=== PATIENT | male | born 1960 | race Caucasian/White ===

== ENCOUNTER → 2019-08-14 14:51 | Outpatient (BNVA) | payer MEDICARE, SELFPAY | PROVIDERS: Family Provider Internal Medicine; PCP Internal Medicine; Visit Provider Family Medicine | DX: R06.02 Shortness of breath (principal) | CPT/HCPCS: 71046 ==

== ENCOUNTER → 2019-08-26 14:15 | Outpatient (BNVA) | payer MEDICARE, SELFPAY | PROVIDERS: Family Provider Internal Medicine; PCP Internal Medicine; Visit Provider Nurse Practitioner Family | DX: R05 Cough (principal); J44.1 Chronic obstructive pulmonary disease with (acute) exacerbation; R09.89 Other specified symptoms and signs involving the circulatory and respiratory systems | CPT/HCPCS: 71046 ==

== ENCOUNTER 2019-11-04 13:42 | Outpatient (CLI) | payer MEDICARE, SELFPAY ==
--- NOTE | 2019-11-04 13:47 | XR_ITS ---
WS: [id number] XR lumbar spine f/e only [id number] REASON FOR EXAM: LOW BACK PAIN, COMMENT ON PRESENCE OR ABSENCE OF SPINAL INST FINDINGS: Spurring anteriorly is seen at the elbow for junction. A mild scoliotic curve convex to the right. There is no evidence of spinal instrumentation. There is degenerate changes of the disc space L5-S1. Normal flexion-extension views. XR/XR lumbar spine f/e only 13095 IMPRESSION: Mild scoliotic curve convex to the right. Degenerate changes of the disc space L5-S1. No evidence of spinal instrumentation.
== END 2019-11-04 13:43 | disposition home or self-care (01) ==
LOC: WPI 13:44
PROVIDERS: PCP Family Medicine; Visit Provider Nurse Practitioner
DX: M54.5 Low back pain (principal); M43.8X6 Other specified deforming dorsopathies, lumbar region
CPT/HCPCS: 72120

== ENCOUNTER → 2020-08-27 15:16 | Outpatient (BNVA) | payer MEDICARE, SELFPAY | PROVIDERS: PCP Family Medicine; Referring Provider Anesthesiology Pain Medicine; Visit Provider Orthopaedic Surgery | DX: M54.2 Cervicalgia (principal) | CPT/HCPCS: 72050 ==

== ENCOUNTER 2020-12-22 13:12 | Outpatient (CLI) | payer OTHER, SELFPAY ==
--- NOTE | 2020-12-22 13:30 | CT_ITS ---
WS: [id number] CT scan of the abdominal aorta and lower extremity arteries. Additional two-dimensional coronal and s agittal reconstruction was performed. MIP images were also performed. 12/22/2020 Clinical Data: I99.9 - Unspecified disorder of circulatory system Comparison: None. DLP: 995.[address] scans at [facility] use at least one of these dose optimization techniques: automat ed exposure control; mA and/or kV adjustment per patient size (includes targeted exams where dose is matched to clinical indication); or iterative reconstruction. Findings: Vascular: The abdominal aorta is normal in size. It bifurcates normally into the common iliac arteries. Then th e internal iliac and external iliac arteries are formed. The external iliac arteries form the common femoral arteries. Common femoral arteries bifurcate into the deep femoral and superficial femoral art eries. The superficial femoral arteries become the popliteal arteries and the arteries of the trifurc ations which are seen down to the level of the feet. There is no stenosis or occlusion. No significan t calcifications are seen. Abdominal and pelvic findings: The present kidneys are normal. The small bowel and colon show no abnormalities. The bladder is unrem arkable. The prostate is enlarged. No inguinal hernia is seen. The bones of the lower lumbar spine, p aidan, hips, femurs, tibia and fibula are normal. The soft tissues and extremities are unremarkable. CT/[place] [id number] Impression: 1. Normal abdominal aorta with normal flow distally through the iliac arteries, femoral arteries and the arteries of the thigh and legs. 2. No acute lower abdominal or intrapelvic abnormalities are seen.
[2020-12-22] MEDS: iohexol 350 mg/mL 100 mL Btl IV (13:59)
== END 2020-12-22 13:13 | disposition home or self-care (01) ==
PROVIDERS: PCP Internal Medicine; Visit Provider Orthopaedic Surgery
DX: I99.9 Unspecified disorder of circulatory system (principal)
CPT/HCPCS: 73706; Q9967

== ENCOUNTER → 2021-01-11 08:33 | Outpatient (BNVA) | payer MEDICARE, SELFPAY | PROVIDERS: PCP Internal Medicine; Referring Provider Orthopaedic Surgery; Visit Provider Anesthesiology Pain Medicine | DX: M47.22 Other spondylosis with radiculopathy, cervical region (principal); M47.812 Spondylosis without myelopathy or radiculopathy, cervical region; M51.36 Other intervertebral disc degeneration, lumbar region; M25.551 Pain in right hip; M25.552 Pain in left hip; J44.9 Chronic obstructive pulmonary disease, unspecified; F17.210 Nicotine dependence, cigarettes, uncomplicated; Z79.891 Long term (current) use of opiate analgesic | CPT/HCPCS: 99205 ==

== ENCOUNTER → 2021-01-19 13:02 | Outpatient (BNVA) | payer MEDICARE, SELFPAY | PROVIDERS: PCP Internal Medicine; Visit Provider Anesthesiology Pain Medicine | DX: M54.12 Radiculopathy, cervical region (principal); Z79.891 Long term (current) use of opiate analgesic | CPT/HCPCS: 62321; J1100 ==

== ENCOUNTER → 2021-02-03 09:44 | Outpatient (BNVA) | payer MEDICARE, SELFPAY | PROVIDERS: PCP Internal Medicine; Visit Provider Anesthesiology Pain Medicine | DX: M47.22 Other spondylosis with radiculopathy, cervical region (principal); M47.812 Spondylosis without myelopathy or radiculopathy, cervical region; M51.36 Other intervertebral disc degeneration, lumbar region; M25.551 Pain in right hip; M25.552 Pain in left hip; F17.210 Nicotine dependence, cigarettes, uncomplicated; Z79.891 Long term (current) use of opiate analgesic | CPT/HCPCS: 99214 ==

== ENCOUNTER → 2021-02-04 15:39 | Outpatient (BNVA) | payer MEDICARE, SELFPAY | PROVIDERS: PCP Internal Medicine; Visit Provider Orthopaedic Surgery | DX: R52 Pain, unspecified (principal) | CPT/HCPCS: 72170 ==

== ENCOUNTER → 2021-02-09 14:56 | Outpatient (BNVA) | payer MEDICARE, SELFPAY | PROVIDERS: PCP Internal Medicine; Visit Provider Anesthesiology Pain Medicine | DX: M47.812 Spondylosis without myelopathy or radiculopathy, cervical region (principal); F17.210 Nicotine dependence, cigarettes, uncomplicated; Z79.891 Long term (current) use of opiate analgesic | CPT/HCPCS: 64490; 64491; 64492; J3490 ==

== ENCOUNTER 2021-04-09 11:28 | Outpatient (CLI) | payer MEDICARE, SELFPAY ==
--- NOTE | 2021-04-09 11:45 | MR_ITS ---
WS: [id number] MRI LUMBAR SPINE NONCONTRAST HISTORY: M54.50 - Low back pain, unspecified COMPARISON: 10/06/2016 TECHNIQUE: Sagittal and axial multisequence imaging is submitted. Mild RIGHT curvature lumbar spine. There is also mild straightening of the normal lordosis. Small madelyn unt of reactive marrow edema along the L4 and L5 endplates. Slightly greater increased T2 signal exte nding into the RIGHT posterior lateral vertebral body and pedicle. Mild disc desiccation at L3-4, L4-5 and L5-S1. Conus terminates normally at L1. L1-L2: Normal. L2-L3: Normal. L3-L4: Mild annular disc bulging with a central disc protrusion and mild osteophytic ridging. Mild li gamentum flavum and facet arthritis. Mild encroachment upon the ventral thecal sac. Mild central sten osis with mild disc contact and encroachment upon the traversing L4 nerve roots bilaterally, LEFT gre ater than RIGHT. L4-L5: Diffuse asymmetric disc bulging with RIGHT foraminal protrusion. Disc bulges greater into the RIGHT subarticular recess and foramen. Mild osteophytic ridging. Nerve roots are becoming slightly cl umped within the thecal sac. Mild osteophytic ridging around the vertebral bodies. Mild ligamentum fl avum and facet arthritis. Moderate central and bilateral subarticular recess stenosis and mild RIGHT foraminal stenosis. There is disc contacting the traversing L5 nerve roots bilaterally. L5-S1: Very shallow central disc protrusion. Small vertebral body osteophytes with no significant jose nosis. Paravertebral soft tissues are normal. MR/MR lumbar spine wo con* [id number] IMPRESSION: 1. Asymmetric disc bulging at L4-5 with the RIGHT subarticular recess and fora ollie protrusion. Moderate central with bilateral subarticular recess and mild RIGHT foraminal stenosis at L4-5. There is disc contacting the traversing L5 ne rve roots bilaterally in the subarticular recesses. 2. Mild central stenosis at L3-4 with disc contacting the traversing L4 nerve roots, LEFT greater than RIGHT. 3. The degenerative changes and disc protrusion and stenosis at L3-4 and L4-5 have progressed since 09/26/2016.
== END 2021-04-09 11:29 | disposition home or self-care (01) ==
LOC: RADSHAW 11:34
PROVIDERS: PCP Internal Medicine; Visit Provider Physician Assistant
DX: M79.605 Pain in left leg (principal); M51.37 Other intervertebral disc degeneration, lumbosacral region; M51.26 Other intervertebral disc displacement, lumbar region; M48.061 Spinal stenosis, lumbar region without neurogenic claudication
CPT/HCPCS: 72148

== ENCOUNTER → 2021-06-17 00:01 | Outpatient (BNVA) | payer MEDICARE, SELFPAY | PROVIDERS: PCP Internal Medicine; Visit Provider Orthopaedic Surgery | DX: Z20.822 Contact with and (suspected) exposure to COVID-19 (principal) | CPT/HCPCS: 87635 ==

== ENCOUNTER 2021-06-23 05:52 | Day surgery (SDC) | payer MEDICARE, SELFPAY ==
[2021-06-17 14:11] VITALS: BMI 19.2
--- NOTE | 2021-06-17 14:33 | ANES.PREANE2 ---
Pre-Anesthetic Assessment Height/Weight: Height 1.75 m Weight 58.967 kg Operation Date: 06/23/21 07:00 Proposed Procedures p Lumbar Spine Decompression L3/4, 4/5--73455/87057/m54.50/m79.605(Not Applicable) - Jim Chavis DO Familial anesthetic complications: None Was Beta Emile taken within 24 hours: N/A Was Clonidine taken within 24 hours: N/A Social Tobacco and No alcohol Exam alert, oriented x 3 and regular rate & rhythm rhonchi Airway Submandibular: within normal limits Cervical ROM: within normal limits Mallampati: Class II Dentition: false Pulmonary Chronic Obstructive Pulmonary Disease CV/HEM Hypertension GI Gastroesophageal Reflux Disease Musc/skel Lower Back Pain Chronic pain/opioid Neuropsych Anxiety and Depression Anesthetic Plan ASA status: 3 Anesthesia: General Risk of > 500 ml blood loss (7ml/kg in children): No Medications/Allergies Home Medications Medication Instructions Recorded Confirmed Last Taken Type cyclobenzaprine 10 mg tablet 10 mg PO TID 08/14/19 06/17/21 Unknown History gsukmtazpb-wrnretivtflow-icabtduk 1 tab PO Q4H PRN 08/27/20 06/17/21 Unknown History 50 mg-325 mg-40 mg tablet diazepam 5 mg tablet 5 mg PO BID PRN 08/27/20 06/17/21 Unknown History albuterol sulfate 90 mcg/actuation 1 inh INHALATION QID 01/11/21 06/17/21 Unknown History aerosol inhaler (Ventolin HFA) ondansetron HCl 4 mg tablet 4 mg PO Q8H 01/11/21 06/17/21 Unknown History (Zofran) lisinopril 10 mg tablet 10 mg PO DAILY 02/04/21 06/17/21 Unknown History hydrocodone 10 mg-acetaminophen 1 tab PO Q8H PRN 04/27/21 06/17/21 Unknown History 325 mg tablet promethazine 25 mg tablet 25 mg PO TID PRN 06/17/21 06/17/21 Unknown History Allergies Allergy/AdvReac Type Severity Reaction Status Date / Time celecoxib [From Celebrex] Allergy Unknown Verified 05/25/21 08:55 latex Allergy rash Verified 05/25/21 08:55 pregabalin [From Lyrica] Allergy ALGY-Rash Verified 06/17/21 14:08 rofecoxib [From Vioxx] Allergy Unknown Verified 05/25/21 08:55 sertraline [From Zoloft] Allergy Unknown Verified 05/25/21 08:55 valdecoxib [From Bextra] Allergy Unknown Verified 05/25/21 08:55 NSAIDS (Non-Steroidal AdvReac RASH Verified 05/25/21 08:55 Anti-Inflamma PFSH Anesthesia Medical History Cervical spondylosis Chronic pain syndrome DDD (degenerative disc disease) Depression Dyslipidemia GERD (gastroesophageal reflux disease) Insomnia Polyarthralgia Family History Other CAD (coronary artery disease) Cancer Stroke Social History Alcohol intake: never Lives independently: Yes Household members: spouse Marital status: service: No Current occupational status: disabled History of recent travel: No Current gender identity: Male Data Anesthesia Cardiac Studies: No Data to Display
[2021-06-23] VITALS (11 sets, daily range): BP systolic 100–150; BP diastolic 59–95; PULSE 64–84; RESP 12–18; TEMP 36.1–36.2; O2SAT 93–99
--- NOTE | 2021-06-23 | XR_ITS ---
WS: [id number] XR lumbar spine 1V [id number] REASON FOR EXAM: lumbar decompression, low back pain, left leg pain FINDINGS: Surgical device initially overlying the left L4-L5 interspace with a second image demonstrating the d evice overlying the left L3-L4 disc space. XR/XR lumbar spine 1V [id number] IMPRESSION: Lumbar spine localization during surgery.
--- NOTE | 2021-06-23 | SCC_ITS ---
Procedure done: 1. bilateral L3/4 laminectomy with patial facetectomies 2. bilateral L4/5 laminectomies with partial facetetomies 12.9 seconds of fluoroscopic guidance, for a cumulative dose of 1.85 mGy, was provided to Dr. Chavis by the radiology department. C-arm images of the lumbar spine were saved for the patient's permanent record. [facility]
[2021-06-23] MEDS: sodium chloride 0.9% 1,000 ML 30 ML IV (06:37)
--- NOTE | 2021-06-23 06:57 | P.HP_ITS ---
Providers/Chief Complaint Primary Care Provider: Kameron Leyva MD Chief Complaint: low back pain, pain in left leg History of Present Illness Rudy De La Vega is a 60 year old male ?left lower extremity greater than right pain.? He has had injections that have given him some short-term relief.? He describes equal back to left leg pain.? Denies any new injuries.? Reports pain down his thighs and posterior thigh region of both legs with left greater than right.? Denies any loss of bowel or bladder control. An extensive review of the patient's past medical history, surgical history, allergies, medications, family history, social history, and review of systems was completed Review of Systems Narrative: General ROS: negative for weight changes, fever ENT ROS: negative for nasal congestion, drainage or bleeding, sore throat, dysphagia or ear pain Eyes: PERRL Hematological and Lymphatic ROS: negative for swollen glands or abnormal bleeding Endocrine ROS: negative for polyuria/polydpsia or new changes in weight Respiratory ROS: negative for cough, shortness of breath, or wheezing Cardiovascular ROS: negative for chest pain or dyspnea on exertion Gastrointestinal ROS: negative for reflux, abdominal pain, change in bowel habits, or black or bloody stools Musculoskeletal ROS: negative for back pain, neck pain, or joint pain or swelling except for current problem Neurological ROS: negative for TIA or stoke symptoms Skin: no rashes Medications/Allergies Home Medications Medication Instructions Recorded Confirmed Last Taken Type cyclobenzaprine 10 mg tablet 10 mg PO TID 08/14/19 06/17/21 06/22/21 History eihxauudzi-edtragjgytkct-ckcschwm 1 tab PO Q4H PRN 08/27/20 06/23/21 06/21/21 History 50 mg-325 mg-40 mg tablet diazepam 5 mg tablet 5 mg PO BID PRN 08/27/20 06/17/21 06/22/21 History albuterol sulfate 90 mcg/actuation 1 inh INHALATION QID 01/11/21 06/17/21 Unknown History aerosol inhaler (Ventolin HFA) ondansetron HCl 4 mg tablet 4 mg PO Q8H 01/11/21 06/17/21 Unknown History (Zofran) lisinopril 10 mg tablet 10 mg PO DAILY 02/04/21 06/17/21 06/22/21 History hydrocodone 10 mg-acetaminophen 1 tab PO Q8H PRN 04/27/21 06/23/21 06/23/21 02:30 History 325 mg tablet promethazine 25 mg tablet 25 mg PO TID PRN 06/17/21 06/17/21 Unknown History Allergies Allergy/AdvReac Type Severity Reaction Status Date / Time celecoxib [From Celebrex] Allergy Unknown Verified 05/25/21 08:55 latex Allergy rash Verified 05/25/21 08:55 pregabalin [From Lyrica] Allergy ALGY-Rash Verified 06/17/21 14:08 rofecoxib [From Vioxx] Allergy Unknown Verified 05/25/21 08:55 sertraline [From Zoloft] Allergy Unknown Verified 05/25/21 08:55 valdecoxib [From Bextra] Allergy Unknown Verified 05/25/21 08:55 NSAIDS (Non-Steroidal AdvReac RASH Verified 05/25/21 08:55 Anti-Inflamma PFSH Acute PFSH: Medical History (Updated 06/23/21 @ 06:59 by Jim Chavis DO) Cervical spondylosis Chronic pain syndrome DDD (degenerative disc disease) Depression Dyslipidemia GERD (gastroesophageal reflux disease) Insomnia Polyarthralgia Family History Other CAD (coronary artery disease) Cancer Stroke Social History Alcohol intake: never Lives independently: Yes Household members: spouse Marital status: service: No Current occupational status: disabled History of recent travel: No Current gender identity: Male Vitals/I&O/Wt Last Vital Signs Temp 97 F L 06/23/21 06:28 Pulse 74 06/23/21 06:28 Resp 18 06/23/21 06:28 BP 107/78 06/23/21 06:28 Pulse Ox 96 06/23/21 06:28 Physical Exam Narrative: EXAM NARRATIVE: CONSTITUTIONAL: The patient is a normal appearing [] in no apparent distress. GENERAL: Patient in no acute distress. CARDIAC: Regular rate and rhythm. CHEST: Normal inspiratory effort, normal respiratory rate. ABDOMEN: Soft and nontender. SKIN: Clear, warm and intact. NEURO?PSYCH: The patient is alert and oriented to person, place and time. Sensorv /SILT Motor StrengthShoulder abduction C5 5/5Wrist extension C6 5/5Elbow extension C7 5/5Hand Sap Developer C8 5/5Finger abduction T15/5 Radial/ Ulnar/ Median n intact LowerSensory (SILT)Motor StrengthHin flexion L2/3Ant/inner thigh 5/5Hip adduction L2/3 5/5Knee extension L4 Lat thigh, 5/5Toe dorsiflexion L5 5/5Ankle dorsiflexion L5/ E21Xukwqns flexion S1 5/5 DTRBleeps 2+Triceps 2+Brachioradialis 2+Patellar 2+Achilles 2+ MUSCULOSKELETAL: [] UPPEREXTREMITIES: The patient had full active ROM in fingers, wrist, elbow, and shoulder. The patient demonstrated ability to fully flex/extend/abduct/adduct fingers, make ok sign, cross 2nd/3rd digits, extend 1st digit fully.. Radial pulse 2+, CR<2 seconds. LOWER EXTREMITIES: Pt has full, active ROM of toes, ankle, knee, and hip. Dorsalis pedis/posterior tibialis pulses 2+, CR<2 seconds. SPINE: Skin warm, dry, intact. Data : 06/23/21 06:26 A&P Assessment and plan (1) Lumbar stenosis with neurogenic claudication: L3/4 and L4/5 MIS decompression Status: Acute Attestations Medical Necessity Statement*: failed conservative tx Coding Level of Care Code Acute Customer Service Leader for Chg Fwd Diagnoses Lumbar stenosis with neurogenic claudication M48.062
--- NOTE | 2021-06-23 07:00 | P.ANESUD_ITS ---
Pre-Anesthetic Update Pre-Anesthetic Assessment: Date of Surgery/Procedure: 06/23/21 Preop Erendira gnosis: Lumbar stenosis with neurogenic claudication Proposed Procedure: Operation Date: 06/23/21 07:00 Proposed Procedures p Lumbar Spine Decompression L3/4, 4/5--87137/31981/m54.50/m79.605(Not Applicable) - Jim Chavis, DO Any changes to Pre-Anesthetic Assessment?: No Last Intake: Intake Last Liquid Date 06/22/21 Last Liquid Time 22:30 Last Solid Date 06/22/21 Last Solid Time 16:00 Last Intake: 22:30 Vitals: Temperature 97 F L 06/23/21 06:28 Temperature Source Temporal Artery S can 06/23/21 06:28 Pulse Rate 74 06/23/21 06:28 Respiratory Rate 18 06/23/21 06:28 Blood Pressure 107/78 06/23/21 06:28 Blood Pressure Gypsy n 87 06/23/21 06:28 Pulse Oximetry 96 06/23/21 06:28 Oxygen Delivery Me thod 06/23/21 06:28 Exam: Pre-Anes Outpt Exam: alert, oriented x 3 and clear to auscultation bilaterally Cardiac Studies: No Data to Display
[2021-06-23 07:35] LABS: Anion Gap 14.7 (5-19); Blood Urea Nitrogen 14 mg/dL (6-20); Carbon Dioxide 24 mmol/L (22-29); Chloride 106 mmol/L (98-107); Glomerular Filtration Rate 98.9 mL/min (90-130); Glucose 91 mg/dL (65-115); Osmolality Calculated 292 mOsm/kg (285-295); Potassium 3.7 mmol/L (3.5-5.1); Sodium 141 mmol/L (136-145)
--- NOTE | 2021-06-23 08:25 | PM.OP ---
Operative Report Date of procedure: June 23, 2021 Pre-op diagnosis: Preop Diagnosis Lumbar stenosis with neurogenic claudication Post-op diagnosis: same Procedure done: 1. bilateral L3/4 laminectomy with patial facetectomies 2. bilateral L4/5 laminectomies with partial facetetomies Surgeon: Jim Chavis Spinner Cap Frame: Alden Cantu Estimated blood loss (mL): 5 Procedure: 1. bilateral L3/4 laminectomy with patial facetectomies 2. bilateral L4/5 laminectomies with partial facetetomies Patient is brought to the operative suite. After undergoing anesthesia they are placed in the prone position. All areas of impingement are well padded. Patient is then prepped and draped in the normal sterile fashion. A skin incision is made over the L3/4 level. This is confirmed under c-arm guidance. A series of dilators are passed and the tubular retractor is docked on the L3 lamina. A bovie is used to clear the soft tissue off the lamina and the L 3/4 facet joint. A high speed shweta is then used to perform the laminectomy and take down the medial aspect of the L 3/4 facet joint. A kerrison rongeure was then used to take down the remaining lamina and smooth the edged of the laminectomy up to the point where the ligamentum flavum attaches. Attention was then brought to the medial aspect of the facet joint. The remaining medial aspect of the superior and inferior aspect of the facet joint were taken down with the kerrison from the pedicle of L3 to L 4. The facet joint had significant hypertrophy. Attention was then brought to the Ligamentum Flavum. The ligament was taken down from the lamina of L3 to L4 and out medially to the remaining facet joint. The ligament was thick. The dura was then exposed. The dura was in good repair. The L3 nerve was then traced with a curette out the L3/4 foramen and found to be adequately decompressed. The L4 nerve was traced with a curette around the L4 pedicle. The lateral recess was opened with a kerrison helping to further decompress the L4 nerve. The tubular retractor was then tilted to the contralateral side. The bovie was used to take down the soft tissue on the spinous process. The high speed shweta was used to take down the spinous process and then the contralateral lamina of L3. The kerrison rongeur was used to take down the remaining lamina to the point where the ligamentum flavum attached and the ligamentum flavum was taken down from L3 to L4. The kerrison rongeur was then used to reach across and take down the medial aspect of the contralateral L3/4 facet joint.The currete was used to trace the contralateral L3 nerve out the L3/4 foramen to make sure it was decompressed adequatesly and the L4 was traced around the L4 pedicle. The lateral recess was opened further with the kerrison to ensure the L4 is adequately decompressed. Wound is then irrigated copiously with saline and surgiflo is used to stop any bleeding. The tubular retractor is removed and A skin incision is made over the L4/5 level. This is confirmed under c-arm guidance. A series of dilators are passed and the tubular retractor is docked on the L4 lamina. A bovie is used to clear the soft tissue off the lamina and the L 4/5 facet joint. A high speed shweta is then used to perform the laminectomy and take down the medial aspect of the L 3/4 facet joint. A kerrison rongeure was then used to take down the remaining lamina and smooth the edged of the laminectomy up to the point where the ligamentum flavum attaches. Attention was then brought to the medial aspect of the facet joint. The remaining medial aspect of the superior and inferior aspect of the facet joint were taken down with the kerrison from the pedicle of L4 to L5. The facet joint had significant hypertrophy. Attention was then brought to the Ligamentum Flavum. The ligament was taken down from the lamina of L4 to L5 and out medially to the remaining facet joint. The ligament was thick. The dura was then exposed. The dura was in good repair. The L4 nerve was then traced with a curette out the L4/5 foramen and found to be adequately decompressed. The L5 nerve was traced with a curette around the L5 pedicle. The lateral recess was opened with a kerrison helping to further decompress the L5 nerve. The tubular retractor was then tilted to the contralateral side. The bovie was used to take down the soft tissue on the spinous process. The high speed shweta was used to take down the spinous process and then the contralateral lamina of L4. The kerrison rongeur was used to take down the remaining lamina to the point where the ligamentum flavum attached and the ligamentum flavum was taken down from L4 to L5. The kerrison rongeur was then used to reach across and take down the medial aspect of the contralateral L4/5 facet joint.The currete was used to trace the contralateral L4 nerve out the L4/5 foramen to make sure it was decompressed adequatesly and the L5 was traced around the L5 pedicle. The lateral recess was opened further with the kerrison to ensure the L5 is adequately decompressed. Wound is then irrigated copiously with saline and surgiflo is used to stop any bleeding. The tubular retractor is removed and the wound is closed with vicryl and monocryl suture. Glue is then used to protect the wound. A sterile dressing is then placed. Patient was then placed in the supine position and transferred to the PACU in stable condition.
[2021-06-23] MEDS: HYDROcodone-acetaminophen 10-325 mg Tablet 1 TAB PO (09:40)
--- NOTE | 2021-06-23 12:57 | ANE.PACU2 ---
Inpatient post-anesthesia follow up: Airway intact: Yes Vital signs: Temperature 97 F Pulse Rate 78 Respiratory Rate 18 Blood Pressure 123/85 Pulse Oximetry 96 Oxygen Delivery Me thod Room Air Oxygen Flow Rate Fraction of Inspir ed Oxygen Hydration adequate: Yes Nausea and vomiting: No Pain level: 2 Mental status: Baseline
== END 2021-06-23 10:42 | disposition home or self-care (01) ==
PROVIDERS: Anesthesiology; PCP Internal Medicine; Visit Provider Orthopaedic Surgery
PROC: (CPT 63005; principal; 2021-06-23 07:00)
DX: M48.062 Spinal stenosis, lumbar region with neurogenic claudication (principal); G89.4 Chronic pain syndrome; Z79.891 Long term (current) use of opiate analgesic; E78.5 Hyperlipidemia, unspecified; K21.9 Gastro-esophageal reflux disease without esophagitis; F32.9 Major depressive disorder, single episode, unspecified; Z82.49 Family history of ischemic heart disease and other diseases of the circulatory system; Z82.3 Family history of stroke; J44.9 Chronic obstructive pulmonary disease, unspecified
CPT/HCPCS: 63047; 63048; 36415; 72020; 76000; 80048; J0690; J1100; J2250; J2405; J2704; J2710; J3010; J3490; J7030

== ENCOUNTER → 2021-07-20 10:15 | Outpatient (BNVA) | payer MEDICARE, SELFPAY | PROVIDERS: PCP Internal Medicine; Visit Provider Orthopaedic Surgery | DX: Z48.89 Encounter for other specified surgical aftercare (principal); M48.062 Spinal stenosis, lumbar region with neurogenic claudication | CPT/HCPCS: 72100 ==

== ENCOUNTER → 2021-09-14 10:48 | Outpatient (BNVA) | payer MEDICARE, SELFPAY | PROVIDERS: PCP Internal Medicine; Visit Provider Orthopaedic Surgery | DX: Z47.89 Encounter for other orthopedic aftercare (principal); Z98.890 Other specified postprocedural states | CPT/HCPCS: 99024 ==

== ENCOUNTER → 2021-10-14 14:46 | Outpatient (BNVA) | payer MEDICARE, SELFPAY | PROVIDERS: PCP Internal Medicine; Visit Provider Nurse Practitioner Family | DX: R07.9 Chest pain, unspecified (principal); R06.02 Shortness of breath; F17.210 Nicotine dependence, cigarettes, uncomplicated | CPT/HCPCS: 99214 ==

== ENCOUNTER → 2021-10-26 10:16 | Outpatient (BNVA) | payer MEDICARE, SELFPAY | PROVIDERS: PCP Internal Medicine; Visit Provider Orthopaedic Surgery | DX: M48.062 Spinal stenosis, lumbar region with neurogenic claudication (principal); Z47.89 Encounter for other orthopedic aftercare; Z98.890 Other specified postprocedural states | CPT/HCPCS: 99214 ==

== ENCOUNTER 2021-12-22 09:12 | Outpatient (CLI) | payer MEDICARE, SELFPAY ==
--- NOTE | 2021-12-22 09:30 | MR_ITS ---
WS: [id number] MRI LUMBAR SPINE NONCONTRAST HISTORY: Low back and RIGHT leg pain. No recent injury. COMPARISON: 04/09/2021 TECHNIQUE: Sagittal and axial multisequence imaging is submitted. Mild RIGHT curvature lumbar spine. Mild straightening of the posterior alignment. Disc spaces are mildly desiccated throughout. Most significant at L4-5 and L5-S1. Small amount of gregg ctive marrow edema at L4 and L5. No fractures. Conus terminates normally at L1. L1-L2: Mild disc bulging and facet arthritis. No fracture. L2-L3: Mild disc bulging with mild ligamentum flavum and facet arthritis. No high-grade stenosis. L3-L4: Mild bilateral facet joint arthritis and ligamentum flavum hypertrophy. Mild annular disc bulg ing and vertebral body osteophytosis. Disc encroaches upon the ventral thecal sac and contacts but do es not displace the traversing L4 nerve roots. Mild bilateral subarticular recess and foraminal narro wing. Mild central stenosis. L4-L5: Moderate annular disc bulging asymmetric to the RIGHT. Moderate size RIGHT foraminal disc prot rusion with contact on both the RIGHT L4 and L5 nerve roots. Additional contact on the LEFT L5 nerve root in the subarticular recess. Nerve roots are becoming clumped within the thecal sac. Mild central stenosis. Laminectomy defect on the LEFT. L5-S1: Mild annular disc bulge. Shallow central disc protrusion. Mild ligamentum flavum hypertrophy a nd facet arthritis. Very mild narrowing of the central canal and foramina. Paravertebral soft tissues are normal. MR/MR lumbar spine wo con* [id number] IMPRESSION: 1. Asymmetric disc bulging at L4-5 with a RIGHT foraminal disc protrusion whic h has increased in size and extent as compared to 04/09/2021. RIGHT foraminal d isc protrusion with greater contact on the RIGHT L4 and L5 nerve roots. 2. Mild central stenosis at L4-5 with additional asymmetric disc bulging conta cting the traversing L5 nerve roots, RIGHT greater than LEFT. 3. Mild central and foraminal narrowing at L5-S1. 4. Mild central, bilateral subarticular foraminal narrowing at L3-4.
== END 2021-12-22 09:13 | disposition home or self-care (01) ==
PROVIDERS: PCP Internal Medicine; Visit Provider Orthopaedic Surgery
DX: M48.062 Spinal stenosis, lumbar region with neurogenic claudication (principal); M79.604 Pain in right leg; M51.26 Other intervertebral disc displacement, lumbar region; M48.061 Spinal stenosis, lumbar region without neurogenic claudication
CPT/HCPCS: 72148

== ENCOUNTER 2021-12-31 09:12 | Outpatient (CLI) | payer MEDICARE, SELFPAY ==
[2021-12-31 09:33] VITALS: BMI 18.4
--- NOTE | 2021-12-31 09:36 | NMCV_ITS ---
NM isaac perf SPECT r/s* [id number] Rudy De La Vega Age: 61 Gender: M : 1960 Exam Date: 12/31/2021 10:31 Ordering Phys: Gabi Patel Technologist: MK Chiang Exam Location: [facility] Indications: CHEST PAIN STRESS TEST [facility] IMAGE PROTOCOL Rest/Stress 1 Lexiscan Day Radiopharmaceutical Dose (mCi) Administration Site Administered by Rest: Tc-99m 10.8 IV MK Douglas Sestamibi Stress:Tc-99m 32.5 IV MK Douglas Sestamibi Rest: 31-Dec-2021 60 Discovery 630 Stress: 31-Dec-2021 30 Discovery 630 0.4mg Lexiscan. Images obtained in supine and prone position. SPECT RESULTS Technical Quality: Excellent Raw Data Analysis: Normal Image Corrections: No attenuation or motion correction applied Summed Stress Score: 5 Summed Rest Score: 14 Summed Difference Score: 0 PERFUSION FINDINGS Medium sized perfusion abnormality of mid to apical inferior, mid to apical inferolateral, mid septal, apical septal and apical butler on rest images with improved tracer uptake on stress images. This is suggestive of attenuation artifact. FUNCTIONAL RESULTS (calculated via Gated SPECT) Stress Image LV EF (%): 68 Stress EDV (mL):91 TID: 0.82 Stress ESV (mL):29 FUNCTIONAL FINDINGS: The left ventricle is normal in size. Transient Ischemia Dilatation of 0.82. The left ventricular ejection fraction is normal with a value of 68%. There is normal left ventricular wall thickening. Normal end-diastolic end-systolic volumes. IMPRESSIONS 1. Medium sized paradoxical perfusion abnormality of mid to apical inferior, mid to apical inferolateral, mid septal, apical septal and apical butler. This is suggestive of attenuation artifact. 2. Overall left ventricular systolic function is normal without regional wall motion abnormalities, LVEF=68%. 3. EKG portion of the study will be reported separately. 4. No coronary ischemia based on the study. Kacey Ivey MD (Electronically Signed) Final Date: 03 January 2022 13:13 S
[2021-12-31] MEDS: regadenoson 0.4 Mg/5 ml Syringe IVP (11:05)
[2021-12-31 11:16] VITALS: BP 122/81; PULSE 91
== END 2021-12-31 09:13 | disposition home or self-care (01) ==
LOC: CDL 09:14
PROVIDERS: PCP Internal Medicine; Visit Provider Nurse Practitioner Family
DX: R07.9 Chest pain, unspecified (principal)
CPT/HCPCS: 78452; 93017; A9500; J2785

== ENCOUNTER → 2022-01-03 15:22 | Outpatient (BNVA) | payer MEDICARE, SELFPAY | PROVIDERS: PCP Internal Medicine; Visit Provider Internal Medicine | DX: I10 Essential (primary) hypertension (principal); J44.9 Chronic obstructive pulmonary disease, unspecified; R07.9 Chest pain, unspecified | CPT/HCPCS: 99214 ==

== ENCOUNTER → 2022-01-18 10:21 | Outpatient (BNVA) | payer MEDICARE, SELFPAY | PROVIDERS: PCP Internal Medicine; Visit Provider Orthopaedic Surgery | DX: M48.062 Spinal stenosis, lumbar region with neurogenic claudication (principal) | CPT/HCPCS: 99214 ==

== ENCOUNTER 2022-02-16 08:21 | Day surgery (SDC) | payer MEDICARE, SELFPAY ==
[2022-02-14 08:16] VITALS: BMI 19.2
[2022-02-14 09:09] LABS: Anion Gap 12.7 (5-19); Blood Urea Nitrogen 21 mg/dL (8-23); Calcium 8.9 mg/dL (8.5-10.5); Carbon Dioxide 28 mmol/L (22-29); Chloride 103 mmol/L (98-107); Creatinine Clr Calc Pharmacy 91.6761; Glomerular Filtration Rate 98.6 mL/min (90-130); Glucose 99 mg/dL (65-115); Osmolality Calculated 291 mOsm/kg (285-295); Potassium 4.7 mmol/L (3.5-5.1); Sodium 139 mmol/L (136-145)
--- NOTE | 2022-02-14 13:01 | ANES.PREANE2 ---
Pre-Anesthetic Assessment Height/Weight: Height 1.75 m Weight 58.967 kg Preop Diagnosis: Lumbar stenosis with neurogenic claudication Operation Date: 02/18/22 07:00 Proposed Procedures p Lumbar Spine Decompression L3/4 L4/5 M48.062 [id number]/[id number](Not Applicable) - Jim Chavis DO Familial anesthetic complications: none Was Beta Emile taken within 24 hours: N/A Was Clonidine taken within 24 hours: N/A Social No alcohol and No tobacco (h/o smoking (quit 1 month ago)) Exam alert, oriented x 3 and regular rate & rhythm Airway Submandibular: within normal limits Cervical ROM: within normal limits Mallampati: Class II Dentition: false Pulmonary Chronic Obstructive Pulmonary Disease CV/HEM Hypertension Chest pain, perfusion scan no ischemia Metabolic Hyperlipidemia Musc/skel Lower Back Pain and Osteoarthritis/DJD chronic opioid Anesthetic Plan ASA status: 3 Anesthesia: General Medications/Allergies Home Medications Medication Instructions Recorded Confirmed Last Taken Type mnafjawrno-mjzohhuxnromd-tzjeqlpp 1 tab PO Q4H PRN Headache 08/27/20 02/14/22 06/21/21 History 50 mg-325 mg-40 mg tablet ondansetron HCl 4 mg tablet 4 mg PO Q8H 01/11/21 02/14/22 Unknown History (Zofran) promethazine 25 mg tablet 25 mg PO TID PRN Nausea 06/17/21 02/14/22 Unknown History cyclobenzaprine 10 mg tablet 20 mg PO BEDTIME 01/03/22 02/14/22 Unknown History tamsulosin 0.4 mg capsule (Flomax) 0.4 mg PO BEDTIME 01/03/22 02/14/22 Unknown History hydrocodone 10 mg-acetaminophen 1 tab PO Q6H PRN pain 02/14/22 02/14/22 Unknown History 325 mg tablet lisinopril 10 mg tablet 10 mg PO BEDTIME 02/14/22 02/14/22 Unknown History Allergies Allergy/AdvReac Type Severity Reaction Status Date / Time celecoxib [From Celebrex] Allergy Unknown Verified 02/14/22 08:11 latex Allergy rash Verified 02/14/22 08:11 pregabalin [From Lyrica] Allergy ALGY-Rash Verified 02/14/22 08:11 rofecoxib [From Vioxx] Allergy Unknown Verified 02/14/22 08:11 sertraline [From Zoloft] Allergy Unknown Verified 02/14/22 08:11 valdecoxib [From Bextra] Allergy Unknown Verified 02/14/22 08:11 NSAIDS (Non-Steroidal AdvReac RASH Verified 02/14/22 08:11 Anti-Inflamma PFSH Anesthesia Medical History Cervical spondylosis Chronic pain syndrome DDD (degenerative disc disease) Depression Dyslipidemia GERD (gastroesophageal reflux disease) Insomnia Polyarthralgia Family History Other CAD (coronary artery disease) Cancer Stroke Social History Smoking and tobacco status: former smoker Alcohol intake: never Lives independently: Yes Household members: spouse Marital status: service: No Current occupational status: disabled History of recent travel: No Current gender identity: Male Data Anesthesia : 02/14/22 08:30 BMP 02/14/22 08:30 Sodium 139 Potassium 4.7 Chloride 103 Carbon Dioxide 28 BUN 21 Creatinine 0.8 Glucose 99 Calcium 8.9 Cardiac Studies: No Data to Display
[2022-02-16] VITALS (7 sets, daily range): BP systolic 94–124; BP diastolic 63–79; PULSE 75–102; RESP 12–18; TEMP 36.4–36.6; O2SAT 97–99
--- NOTE | 2022-02-16 | XR_ITS ---
WS: [id number] Exam: XR lumbar spine 1V [id number] Date/Time of Exam: 02/16/2022 12:00 AM Reason For Exam: decompression L3/4 and L4/5 A single anterior posterior C-arm image of the lower lumbar spine is submitted for evaluation. A localization port is positioned over the L3-4 disc space. No other significant finding on this limi fabian study.
--- NOTE | 2022-02-16 | SCC_ITS ---
Procedure done: 1. L3/4 laminectomy with partial facetectomy 2. L4/5 laminectomy with partial facetectomy 24.5 seconds of fluoroscopic guidance, for a cumulative dose of 4.84 mGy, was provided to Dr. Chaivs by the radiology department. C-arm images of the lumbar spine were saved for the patient's permanent record. [facility]
--- NOTE | 2022-02-16 07:12 | W.PM.OPSUD ---
Surgery/Procedure H&P Update DATE OF PROCEDURE: February 16, 2022 DATE H&P PERFORMED: 01/18/22 H&P UPDATE INFORMATION: I have reviewed H&P completed within last 30 days, I have examined patient prior to procedure and No changes to prior documentation PREOP DIAGNOSIS: Lumbar stenosis with neurogenic claudication PLANNED PROCEDURE: Operation Date: 02/16/22 10:00 Proposed Procedures p Lumbar Spine Decompression L3/4 L4/5 M48.062 [id number](Not Applicable) - Jim Chavis DO
[2022-02-16] MEDS: sodium chloride 0.9% 1,000 ML 30 ML IV (08:57)
--- NOTE | 2022-02-16 09:13 | P.ANESUD_ITS ---
Pre-Anesthetic Update Pre-Anesthetic Assessment: Date of Surgery/Procedure: 02/16/22 Preop Erendira gnosis: Lumbar stenosis with neurogenic claudication Proposed Procedure: Operation Date: 02/16/22 10:00 Proposed Procedures p Lumbar Spine Decompression L3/4 L4/5 M48.062 [id number](Not Applicable) - Jim Chavis, DO Any changes to Pre-Anesthetic Assessment?: No Last Intake: Intake Last Liquid Date 02/15/22 Last Liquid Time 23:00 Last Solid Date 02/15/22 Last Solid Time 19:00 Vitals: Temperature 97.6 F 02/16/22 08:31 Temperature Source Temporal Artery S can 02/16/22 08:31 Pulse Rate 91 02/16/22 08:31 Respiratory Rate 18 02/16/22 08:31 Blood Pressure 124/79 02/16/22 08:31 Blood Pressure Gypsy n 94 02/16/22 08:31 Pulse Oximetry 97 02/16/22 08:31 Oxygen Delivery Me thod 02/16/22 08:37 Exam: Pre-Anes Outpt Exam: alert, oriented x 3, clear to auscultation bilaterally and regular rate & rhythm Cardiac Studies: No Data to Display
[2022-02-16] MEDS: ceFAZolin 2,000 MG in sodium chloride 0.9% (plus) 50 ML 100 MG IV (10:15)
--- NOTE | 2022-02-16 11:43 | P.OP_ITS ---
Operative Report Date of procedure: February 16, 2022 Pre-op diagnosis: Preop Diagnosis Lumbar stenosis with neurogenic claudication Post-op diagnosis: same Procedure done: 1. L3/4 laminectomy with partial facetectomy 2. L4/5 laminectomy with partial facetectomy Surgeon: Jim Chavis Channel Marketing Manager: Alden Cantu Estimated blood loss (mL): 5 Procedure: 1. L3/4 laminectomy with partial facetectomy 2. L4/5 laminectomy with partial facetectomy Patient is brought to the operative suite. After undergoing anesthesia they are placed in the prone position. All areas of impingement are well padded. Patient is then prepped and draped in the normal sterile fashion. A skin incision is made over the L3-4 level. This is confirmed under c-arm guidance. A series of dilators are passed and the tubular retractor is docked on the L3 lamina. A bovie is used to clear the soft tissue off the lamina and the L 3/4 facet joint. A high speed shweta is then used to perform the laminectomy and take down the medial aspect of the L 3/4 facet joint. A kerrison rongeure was then used to take down the remaining lamina and smooth the edge of the laminectomy up to the point where the ligamentum flavum attaches. Attention was then brought to the medial aspect of the facet joint. The remaining medial aspect of the superior and inferior aspect of the facet joint were taken down with the kerrison from the pedicle of L 3 to L 4. The facet joint had significant hypertrophy. Attention was then brought to the Ligamentum Flavum. The ligament was taken down from the lamina of L 3 to L 4 and out medially to the remaining facet joint. The ligament was thickened. The dura was then exposed. The dura was in good repair. The L 3 nerve was then traced with a curette out the L 3/4 foramen and found to be adequately decompressed. The L 4 nerve was traced with a curette around the L 4 pedicle. The lateral recess was opened with a kerrison helping to further decompress the L 4 nerve. Wound is then irrigated copiously with saline and surgiflo is used to stop any bleeding. The tubular retractor is removed A skin incision is made over the L4/5 level. This is confirmed under c-arm guidance. A series of dilators are passed and the tubular retractor is docked on the L 4 lamina. A bovie is used to clear the soft tissue off the lamina and the L 4/5 facet joint. A high speed shweta is then used to perform the laminectomy and take down the medial aspect of the L 4/5 facet joint. A kerrison rongeure was then used to take down the remaining lamina and smooth the edge of the laminectomy up to the point where the ligamentum flavum attaches. Attention was then brought to the medial aspect of the facet joint. The remaining medial aspect of the superior and inferior aspect of the facet joint were taken down with the kerrison from the pedicle of L 4 to L 5. The facet joint had significant hypertrophy. Attention was then brought to the Ligamentum Flavum. The ligament was taken down from the lamina of L 4 to L 5 and out medially to the remaining facet joint. The ligament was thickened. The dura was then exposed. The dura was in good repair. The L 4 nerve was then traced with a curette out the L 4/5 foramen and found to be adequately decompressed. The L 5 nerve was traced with a curette around the L 5 pedicle. The lateral recess was opened with a kerrison helping to further decompress the L 5 nerve. Wound is then irrigated copiously with saline and surgiflo is used to stop any bleeding. The tubular retractor is removed and the wound is closed with vicryl and monocryl suture. Glue is then used to protect the wound. A sterile dressing is then placed. Patient was then placed in the supine position and transferred to the PACU in stable condition.
[2022-02-16] MEDS: HYDROcodone-acetaminophen 10-325 mg Tablet 1 TAB PO (12:22)
== END 2022-02-16 12:44 | disposition home or self-care (01) ==
PROVIDERS: Anesthesiology; PCP Internal Medicine; Visit Provider Orthopaedic Surgery
PROC: (CPT 63005; principal; 2022-02-16 10:00)
DX: M48.062 Spinal stenosis, lumbar region with neurogenic claudication (principal); J44.9 Chronic obstructive pulmonary disease, unspecified; I10 Essential (primary) hypertension; E78.5 Hyperlipidemia, unspecified; Z79.891 Long term (current) use of opiate analgesic; F32.A Depression, unspecified; K21.9 Gastro-esophageal reflux disease without esophagitis; Z87.891 Personal history of nicotine dependence
CPT/HCPCS: 63047; 63048; 36415; 72020; 76000; 80048; J1100; J1170; J2250; J2405; J2704; J3010; J3490; J7030; P9041

== ENCOUNTER → 2022-03-01 09:26 | Outpatient (BNVA) | payer MEDICARE, SELFPAY | PROVIDERS: PCP Internal Medicine; Visit Provider Physician Assistant | DX: Z47.89 Encounter for other orthopedic aftercare (principal) | CPT/HCPCS: 99024 ==

== ENCOUNTER → 2022-05-19 10:57 | Outpatient (BNVA) | payer MEDICARE, SELFPAY | PROVIDERS: PCP Internal Medicine; Visit Provider Physician Assistant | DX: Z98.890 Other specified postprocedural states (principal); J44.9 Chronic obstructive pulmonary disease, unspecified; Z87.891 Personal history of nicotine dependence | CPT/HCPCS: 72110; 99024 ==

== ENCOUNTER → 2022-07-11 15:43 | Outpatient (BNVA) | payer MEDICARE, SELFPAY | PROVIDERS: PCP Internal Medicine; Visit Provider Internal Medicine | DX: I10 Essential (primary) hypertension (principal); J44.9 Chronic obstructive pulmonary disease, unspecified; Z87.891 Personal history of nicotine dependence | CPT/HCPCS: 99213 ==

== ENCOUNTER → 2022-08-16 13:39 | Outpatient (BNVA) | payer MEDICARE, SELFPAY | PROVIDERS: PCP Internal Medicine; Visit Provider Orthopaedic Surgery | DX: M48.062 Spinal stenosis, lumbar region with neurogenic claudication (principal); Z98.890 Other specified postprocedural states | CPT/HCPCS: 99214 ==

== ENCOUNTER 2022-09-06 09:22 | Outpatient (CLI) | payer MEDICARE, SELFPAY ==
--- NOTE | 2022-09-06 09:30 | MR_ITS ---
WS: [id number] MRI LUMBAR SPINE NONCONTRAST TECHNIQUE: Sagittal T1, T2 and STIR imaging. Axial T1 and T2 imaging. CLINICAL INFORMATION: back pain COMPARISON: MRI December 22, 2021 FINDINGS: Mild lumbar curve. No acute compression. No high-grade central canal stenosis. Disc bulging worse at L3-L4 and L4-L5. L1-L2: Mild annular bulging. Mild facet arthropathy. Spinal canal and foramen are patent. L2-L3: Mild annular bulging. Mild facet arthropathy. Spinal canal and foramen are patent. L3-L4: Mild annular bulging. Mild RIGHT greater than LEFT foraminal narrowing. Slight encroachment on the far exiting L3 nerve root with small RIGHT foraminal protrusion. Moderate facet arthropathy. L4-L5: LEFT hemilaminectomy. Mild annular bulging. Slight impingement traversing L5 nerve roots bilat erally. Moderate facet arthropathy. RIGHT foraminal protrusion with slight encroachment on the exitin g RIGHT L4 nerve root appears improved. L5-S1: Mild annular bulging. Slight contact of the traversing RIGHT greater than LEFT S1 nerve roots. Mild facet arthropathy. Spinal canal and foramen are patent. Degenerative edema involving the L4-L5 vertebral bodies. Visualized pelvic bony structures: Normal. Paravertebral soft tissues: Normal. MR/MR lumbar spine wo con* [id number] IMPRESSION: 1. Mild lumbar curve. No acute compression. No high-grade central canal stenos is. 2. LEFT L4-L5 hemilaminectomy. Spinal canal is decompressed at this level. 3. RIGHT L4-L5 foraminal protrusion appears improved with mild residual RIGHT foraminal stenosis. 4. Disc bulging L5-S1 with slight impingement traversing S1 nerve roots bilate rally. This is unchanged. 5. Annular bulging L3-L4 with slight impingement traversing L4 nerve roots jo aterally unchanged. Small RIGHT foraminal protrusion with slight impingement on the exiting RIGHT L3 nerve root appears progressed. 6. Moderate facet arthropathy L3-L4 and L4-L5.
== END 2022-09-06 09:23 | disposition home or self-care (01) ==
LOC: RAD 09:28
PROVIDERS: PCP Internal Medicine; Visit Provider Orthopaedic Surgery
DX: Z98.890 Other specified postprocedural states (principal); M43.9 Deforming dorsopathy, unspecified; M48.061 Spinal stenosis, lumbar region without neurogenic claudication; M51.37 Other intervertebral disc degeneration, lumbosacral region; M12.9 Arthropathy, unspecified
CPT/HCPCS: 72148

== ENCOUNTER → 2022-10-11 14:01 | Outpatient (BNVA) | payer MEDICARE, SELFPAY | PROVIDERS: PCP Internal Medicine; Visit Provider Orthopaedic Surgery | DX: Z01.818 Encounter for other preprocedural examination (principal); M48.062 Spinal stenosis, lumbar region with neurogenic claudication | CPT/HCPCS: 36415; 80053; 85025; 99214 ==

== ENCOUNTER → 2022-11-02 14:17 | Outpatient (BNVA) | payer MEDICARE, SELFPAY | PROVIDERS: PCP Internal Medicine; Visit Provider Specialist | DX: M77.8 Other enthesopathies, not elsewhere classified (principal); M19.011 Primary osteoarthritis, right shoulder | CPT/HCPCS: 73030; 99204 ==

== ENCOUNTER 2022-11-04 06:29 | Day surgery (SDC) | payer MEDICARE, SELFPAY ==
[2022-11-01 08:47] VITALS: BMI 19.2
--- NOTE | 2022-11-01 18:01 | ANES.PREANE2 ---
Pre-Anesthetic Assessment Height/Weight: Height 1.75 m Weight 58.967 kg Operation Date: 11/04/22 07:00 Proposed Procedures p Minimally Invasive L5/S1 Lumbar Decompression : 93505,M48.062(Not Applicable) - Jim Chavis DO Familial anesthetic complications: none Was Beta Emile taken within 24 hours: N/A Was Clonidine taken within 24 hours: N/A Social No alcohol and No tobacco (h/o smoking) Exam alert, oriented x 3 and regular rate & rhythm Airway Submandibular: within normal limits Cervical ROM: within normal limits Mallampati: Class II Dentition: false Pulmonary Chronic Obstructive Pulmonary Disease CV/HEM Hypertension GI Gastroesophageal Reflux Disease Musc/skel Lower Back Pain and Osteoarthritis/DJD Neuropsych Anxiety and Depression Chronic pain/opioid Anesthetic Plan ASA status: 3 Anesthesia: General Medications/Allergies Home Medications Medication Instructions Recorded Confirmed Last Taken Type ondansetron HCl 4 mg tablet 4 mg PO Q8H PRN Nausea 01/11/21 11/01/22 Unknown History (Zofran) promethazine 25 mg tablet 25 mg PO TID PRN Nausea 06/17/21 11/01/22 10/31/22 History cyclobenzaprine 10 mg tablet 20 mg PO BEDTIME 01/03/22 11/01/22 10/31/22 History tamsulosin 0.4 mg capsule (Flomax) 0.4 mg PO BEDTIME 01/03/22 11/01/22 10/31/22 History lisinopril 10 mg tablet 10 mg PO BEDTIME 02/14/22 11/01/22 11/01/22 History hydrocodone 10 mg-acetaminophen 1 tab PO Q6H PRN Acid Reflux 07/11/22 11/01/22 11/01/22 History 325 mg tablet pantoprazole [Protonix] 40 mg PO DAILY 08/16/22 11/01/22 11/01/22 History butabarbital 15 mg tablet 15 mg PO DAILY 10/28/22 11/01/22 11/01/22 History Allergies Allergy/AdvReac Type Severity Reaction Status Date / Time celecoxib [From Celebrex] Allergy Unknown Verified 10/28/22 11:13 latex Allergy rash Verified 10/28/22 11:13 pregabalin [From Lyrica] Allergy ALGY-Rash Verified 10/28/22 11:13 rofecoxib [From Vioxx] Allergy Unknown Verified 10/28/22 11:13 sertraline [From Zoloft] Allergy Unknown Verified 10/28/22 11:13 valdecoxib [From Bextra] Allergy Unknown Verified 10/28/22 11:13 NSAIDS (Non-Steroidal AdvReac RASH Verified 10/28/22 11:13 Anti-Inflamma PFSH Anesthesia Medical History Cervical spondylosis Chronic pain syndrome DDD (degenerative disc disease) Depression Dyslipidemia GERD (gastroesophageal reflux disease) Insomnia Polyarthralgia Family History Other CAD (coronary artery disease) Cancer Stroke Social History Smoking and tobacco status: former smoker Alcohol intake: never Substance/Drug Use: never Lives independently: Yes Household members: spouse Marital status: service: No Current occupational status: disabled Current gender identity: Male Data Anesthesia Cardiac Studies: No Data to Display
[2022-11-04] VITALS (8 sets, daily range): BP systolic 97–131; BP diastolic 62–84; PULSE 63–97; RESP 12–20; TEMP 36.1–36.3; O2SAT 94–99
--- NOTE | 2022-11-04 | XR_ITS ---
WS: [id number] XR lumbar spine 1V [id number] REASON FOR EXAM: L5-S1 decompression FINDINGS: Surgical instrument overlying the left L5-S1 disc space. XR/XR lumbar spine 1V [id number] IMPRESSION: Lumbar localization in surgery as above.
[2022-11-04] MEDS: sodium chloride 0.9% 1,000 ML 30 ML IV (06:50)
--- NOTE | 2022-11-04 06:55 | W.PM.OPSUD ---
Surgery/Procedure H&P Update DATE OF PROCEDURE: November 04, 2022 DATE H&P PERFORMED: 10/11/22 H&P UPDATE INFORMATION: I have reviewed H&P completed within last 30 days, I have examined patient prior to procedure and No changes to prior documentation PREOP DIAGNOSIS: Lumbar stenosis with neurogenic claudication PLANNED PROCEDURE: Operation Date: 11/04/22 08:00 Proposed Procedures p Minimally Invasive L5/S1 Lumbar Decompression : 73356,M48.062(Not Applicable) - Jim Chavis DO
[2022-11-04] MEDS: ceFAZolin 2,000 MG in sodium chloride 0.9% (plus) 50 ML 100 MG IV (07:54)
[2022-11-04] MEDS: lidocaine-epi 1% 20 mL INJ INJECTION (08:20)
--- NOTE | 2022-11-04 08:49 | PM.OP ---
Operative Report Date of procedure: November 04, 2022 Pre-op diagnosis: Preop Diagnosis Lumbar stenosis with neurogenic claudication Post-op diagnosis: same Procedure done: 1. L5/S1 laminectomy with partial facetectomy Surgeon: Jim Chavis Mechanical Developer Prover: none Estimated blood loss (mL): 5 Procedure: 1. L5/S1 laminectomy with partial facetectomy Patient is brought to the operative suite. After undergoing anesthesia they are placed in the prone position. All areas of impingement are well padded. Patient is then prepped and draped in the normal sterile fashion. A skin incision is made over the L5/S1 level. This is confirmed under c-arm guidance. A series of dilators are passed and the tubular retractor is docked on the L5 lamina. A bovie is used to clear the soft tissue off the lamina and the L 5/S1 facet joint. A high speed shweta is then used to perform the laminectomy and take down the medial aspect of the L 5/S1 facet joint. A kerrison rongeure was then used to take down the remaining lamina and smooth the edge of the laminectomy up to the point where the ligamentum flavum attaches. Attention was then brought to the medial aspect of the facet joint. The remaining medial aspect of the superior and inferior aspect of the facet joint were taken down with the kerrison from the pedicle of L5 to S1. The facet joint had significant hypertrophy. Attention was then brought to the Ligamentum Flavum. The ligament was taken down from the lamina of L5 to S1 and out medially to the remaining facet joint. The ligament was thick. The dura was then exposed. The dura was in good repair. The L5 nerve was then traced with a curette out the L5/S1 foramen and found to be adequately decompressed. The S1 nerve was traced with a curette around the S1 pedicle. The lateral recess was opened with a kerrison helping to further decompress the S1 nerve. Wound is then irrigated copiously with saline and surgiflo is used to stop any bleeding. The tubular retractor is removed and the wound is closed with vicryl and monocryl suture. Glue is then used to protect the wound. A sterile dressing is then placed. Patient was then placed in the supine position and transferred to the PACU in stable condition.
--- NOTE | 2022-11-04 09:01 | ANE.PACU2 ---
Inpatient post-anesthesia follow up: Vital signs: Temperature 97.4 F Pulse Rate 78 Respiratory Rate 15 Blood Pressure 97/62 Pulse Oximetry 98 Oxygen Delivery Me thod Room Air Oxygen Flow Rate Fraction of Inspir ed Oxygen Hydration adequate: Yes Nausea and vomiting: No Pain level: 3 Mental status: Baseline
== END 2022-11-04 10:20 | disposition home or self-care (01) ==
PROVIDERS: PCP Internal Medicine; Visit Provider Orthopaedic Surgery
PROC: (CPT 63005; principal; 2022-11-04 08:00)
DX: M48.062 Spinal stenosis, lumbar region with neurogenic claudication (principal); J44.9 Chronic obstructive pulmonary disease, unspecified; I10 Essential (primary) hypertension; K21.9 Gastro-esophageal reflux disease without esophagitis; E78.5 Hyperlipidemia, unspecified; Z87.891 Personal history of nicotine dependence
CPT/HCPCS: 63047; 72020; 76000; J0330; J0690; J1100; J2370; J2405; J2704; J2710; J3010; J3490; J7030

== ENCOUNTER → 2022-11-17 11:10 | Outpatient (BNVA) | payer MEDICARE, SELFPAY | PROVIDERS: PCP Internal Medicine; Visit Provider Physician Assistant | DX: Z98.890 Other specified postprocedural states (principal) | CPT/HCPCS: 99024 ==

== ENCOUNTER → 2023-01-10 11:10 | Outpatient (BNVA) | payer MEDICARE, SELFPAY | PROVIDERS: PCP Internal Medicine; Visit Provider Physician Assistant | DX: Z47.89 Encounter for other orthopedic aftercare (principal) | CPT/HCPCS: 99024 ==

== ENCOUNTER → 2023-01-17 13:39 | Outpatient (BNVA) | payer MEDICARE, SELFPAY | PROVIDERS: PCP Internal Medicine; Visit Provider Physician Assistant | DX: M47.22 Other spondylosis with radiculopathy, cervical region (principal) | CPT/HCPCS: 72040; 99214 ==

== ENCOUNTER → 2023-02-27 14:17 | Outpatient (BNVA) | payer MEDICARE, SELFPAY | PROVIDERS: PCP Internal Medicine; Visit Provider Specialist | DX: M19.011 Primary osteoarthritis, right shoulder (principal) | CPT/HCPCS: 73030; 99213 ==

== ENCOUNTER → 2023-02-28 14:02 | Outpatient (BNVA) | payer MEDICARE, SELFPAY | PROVIDERS: PCP Internal Medicine; Visit Provider Physician Assistant | DX: M47.812 Spondylosis without myelopathy or radiculopathy, cervical region (principal); M19.011 Primary osteoarthritis, right shoulder | CPT/HCPCS: 99213 ==

== ENCOUNTER 2023-03-29 09:18 | Outpatient (CLI) | payer MEDICARE, SELFPAY ==
--- NOTE | 2023-03-29 09:30 | MR_ITS ---
WS: [id number] MRI CERVICAL SPINE NONCONTRAST TECHNIQUE: Sagittal T1, T2 and STIR imaging. Axial T2, gradient, and fiesta imaging. CLINICAL INFORMATION: neck COMPARISON: MRI 2020 FINDINGS: Mild cervical curve. No high-grade central canal stenosis. Mild spondylitic changes. Disc space narro wing worse at C4-C6. This is slightly progressed at C6-7 compared to previous. Cord signal is normal. C2-C3: Normal. C3-C4: Mild disc bulge with osteophytic ridging. Moderate facet arthropathy. Mild LEFT greater than R IGHT bony foraminal narrowing. Spinal canal is patent. C4-C5: Disc osteophyte complex with endplate ridging. Slight contact of the cervical cord. Spinal can al is patent. Mild to moderate LEFT greater than RIGHT bony foraminal narrowing. Mild facet arthropat hy. C5-C6: Disc osteophyte complex with endplate ridging. Slight contact of the cervical cord. Spinal can al is patent. Moderate facet arthropathy. Mild LEFT and no significant RIGHT foraminal narrowing. Mod erate facet arthropathy. C6-C7: Disc osteophyte complex with endplate ridging. Spinal canal is patent. Mild LEFT and no signif icant RIGHT foraminal narrowing. Mild facet arthropathy. C7-T1: Tiny central protrusion. Mild LEFT foraminal narrowing. Spinal canal is patent. Visualized brain stem structures: Normal. Prevertebral soft tissues: Normal. IMPRESSION: 1. Disc bulging worse at C4-C6. Disc desiccation and bulging at C6-7 progressed compared to previous . 2. Small disc osteophyte protrusions C4-C5 C5-C6 and C6-C7 with slight contact of the cervical cord. No significant central canal stenosis. 3. Mild to moderate bony foraminal narrowing worse at bilateral C4-5 worse on the LEFT, LEFT C5-6, a nd LEFT C6-7. 4. Moderate facet arthropathy C5-C6 and C6-C7. 5. No other suspicious findings.
== END 2023-03-29 09:19 | disposition home or self-care (01) ==
LOC: RAD 09:18
PROVIDERS: PCP Internal Medicine; Visit Provider Physician Assistant
DX: M47.812 Spondylosis without myelopathy or radiculopathy, cervical region (principal); M25.78 Osteophyte, vertebrae
CPT/HCPCS: 72141

== ENCOUNTER 2023-04-03 12:48 | Outpatient (CLI) | payer MEDICARE, SELFPAY ==
--- NOTE | 2023-04-03 12:51 | MR_ITS ---
WS: [id number] MRI RIGHT SHOULDER ARTHROGRAM HISTORY: Progressive shoulder pain. Prior surgeries. COMPARISON: 03/17/2010 and radiographs 02/27/2023 TECHNIQUE: Pre and postcontrast imaging. Gadolinium mixture was injected under fluoroscopy. Coronal T 1 fat sat, sagittal T2 fat sat, coronal T2 fat sat, axial proton density, axial T1 nonfat saturation submitted. Precontrast: Micrometallic artifacts are noted within the soft tissues from prior surgery. Mild widen ing of the AC joint without significant osteophytosis. Postsurgical widening. No significant subacrom ial impingement. No significant amount of fluid in the subacromion or subdeltoid bursa. No os acromio n. Biceps tendon present in the bicipital groove. Very slight high riding humeral head. No signal abnormality within the rotator cuff. There is no musc le atrophy or edema. Small caliber axillary pouch. Very mild thickening of the coracohumeral ligament . Postcontrast: No intra-articular injected fluid extends into the subacromial or subdeltoid bursa. Mod erate size labral tear involving the superior anterior labrum. Posterior labrum appears normal. There are few tiny loose bodies noted within the fluid surrounding the humeral head from calcific ten dinitis. IMPRESSION: 1. Extensive labral tear involving the superior anterior labrum. 2. No rotator cuff tear identified. 3. Prior surgery AC joint. Mild widening of the AC joint without significant impingement upon the rot ator cuff tendons. 4. Mild calcific tendinitis noted on the postcontrast imaging.
--- NOTE | 2023-04-03 13:00 | IR_ITS ---
WS: [id number] RIGHT SHOULDER ARTHROGRAM UNDER FLUOROSCOPY. PRIOR TO MRI EVALUATION. HISTORY: Chronic RIGHT shoulder pain. COMPARISON: None available. FLUOROSCOPY TIME: 0min [id number] # of spot films: 4 Procedure, risks and complications were explained to the patient. Consent has been obtained. Under fluoroscopic guidance the skin is marked over the medial superior third of the humeral head, cl eansed with ChloraPrep and anesthetized with lidocaine. 22-gauge spinal needle is inserted to the cor bee of the humeral head. Test injection with Omnipaque reveals the needle is appropriately positioned in the joint. A mixture of 10 cc sterile saline, 5 cc Omnipaque and 0.1 mmol gadolinium are injected under fluoroscopic guidance. Patient tolerated the joint distention well. No complications. Uncomplicated injection into the RIGHT shoulder joint. Patient tolerated the procedure well. No compl ications. IMPRESSION: Uncomplicated RIGHT shoulder joint injection prior to MRI.
== END 2023-04-03 12:49 | disposition home or self-care (01) ==
LOC: RAD 12:49
PROVIDERS: PCP Internal Medicine; Visit Provider Specialist
DX: M19.011 Primary osteoarthritis, right shoulder (principal); M77.8 Other enthesopathies, not elsewhere classified; S43.491A Other sprain of right shoulder joint, initial encounter; X58.XXXA Exposure to other specified factors, initial encounter; M75.31 Calcific tendinitis of right shoulder
CPT/HCPCS: 23350; 73223; 77002; 99213; A9577; Q9966

== ENCOUNTER → 2023-04-18 08:44 | Outpatient (BNVA) | payer MEDICARE, SELFPAY | PROVIDERS: PCP Internal Medicine; Visit Provider Orthopaedic Surgery | DX: M47.22 Other spondylosis with radiculopathy, cervical region | CPT/HCPCS: 99214 ==

== ENCOUNTER → 2023-05-08 11:03 | Outpatient (BNVA) | payer MEDICARE, SELFPAY | PROVIDERS: PCP Internal Medicine; Visit Provider Specialist | DX: S43.431A Superior glenoid labrum lesion of right shoulder, initial encounter (principal); X58.XXXA Exposure to other specified factors, initial encounter | CPT/HCPCS: 99213 ==

== ENCOUNTER → 2023-05-10 10:20 | Outpatient (BNVA) | payer MEDICARE, SELFPAY | PROVIDERS: PCP Internal Medicine; Referring Provider Orthopaedic Surgery; Visit Provider Anesthesiology Pain Medicine | DX: M47.22 Other spondylosis with radiculopathy, cervical region; M47.812 Spondylosis without myelopathy or radiculopathy, cervical region; M51.36 Other intervertebral disc degeneration, lumbar region | CPT/HCPCS: 99204 ==

== ENCOUNTER → 2023-05-19 12:04 | Outpatient (BNVA) | payer MEDICARE, SELFPAY | PROVIDERS: PCP Internal Medicine; Visit Provider Student in an Organized Health Care Education/Training Program | DX: S43.431A Superior glenoid labrum lesion of right shoulder, initial encounter (principal); X58.XXXA Exposure to other specified factors, initial encounter | CPT/HCPCS: 99214 ==

== ENCOUNTER 2023-06-21 05:49 | Day surgery (SDC) | payer MEDICARE, SELFPAY ==
[2023-06-21] VITALS (10 sets, daily range): BP systolic 97–153; BP diastolic 79–107; PULSE 80–123; RESP 12–18; TEMP 36.1–36.3; O2SAT 93–98; BMI 18.2
[2023-06-21] MEDS: acetaminophen 1,000 MG/100 ML PIGGYBACK 400 MG IV (06:20)
[2023-06-21] MEDS: sodium chloride 0.9% 1,000 ML 30 ML IV (06:20)
[2023-06-21] MEDS: scopolamine 1.5 Patch 1 PATCH TRANSDERMA (06:21)
--- NOTE | 2023-06-21 06:35 | ANES.PREANE2 ---
Pre-Anesthetic Assessment Height/Weight: Height 1.73 m Weight 54.431 kg Temp Pulse Resp BP Pulse Ox O2 Del Method 97.0 F L 80 16 97/79 95 Room Air 06/21/23 06:16 06/21/23 06:16 06/21/23 06:16 06/21/23 06:16 06/21/23 06:16 06/21/23 06:16 Operation Date: 06/21/23 07:00 Proposed Procedures p Shoulder Arthroscopy(Right) - Lewis Willson DO s Bicep Tenotomy vs tenodesis(Right) - Lewis Willson DO Familial anesthetic complications: None Was Beta Emile taken within 24 hours: N/A Was Clonidine taken within 24 hours: N/A Last intake: Intake Last Liquid Date 06/20/23 Last Liquid Time 21:00 Last Solid Date 06/20/23 Last Solid Time 21:00 Social No alcohol and No tobacco Exam alert, oriented x 3, clear to auscultation bilaterally and regular rate & rhythm Airway Mallampati: Class II Dentition: false Pulmonary Chronic Obstructive Pulmonary Disease (no O2, no hospital admissions) CV/HEM Hypertension GI Gastroesophageal Reflux Disease Anesthetic Plan ASA status: 3 Anesthesia: General and Regional (specify below) Risk of > 500 ml blood loss (7ml/kg in children): No Medications/Allergies Home Medications Medication Instructions Recorded Confirmed Last Taken Type ondansetron HCl 4 mg tablet 4 mg PO Q8H PRN Nausea 01/11/21 06/21/23 2 Months Ago History (Zoan) ~04/20/23 promethazine 25 mg tablet 25 mg PO TID PRN Nausea 06/17/21 06/21/23 06/19/23 History cyclobenzaprine 10 mg tablet 10 mg PO TID 01/03/22 06/21/23 06/20/23 History tamsulosin 0.4 mg capsule (Flomax) 0.4 mg PO BEDTIME 01/03/22 06/21/23 06/20/23 History hydrocodone 10 mg-acetaminophen 1 tab PO Q6H PRN Pain 07/11/22 06/21/23 06/21/23 History 325 mg tablet pantoprazole [Protonix] 40 mg PO DAILY 08/16/22 06/21/23 06/20/23 History lisinopril 10 mg tablet 10 mg PO BEDTIME #90 tabs 02/01/23 06/21/23 06/20/23 Rx hydroxyzine HCl 25 mg tablet 25 mg PO DAILY 02/28/23 06/21/23 06/20/23 History mirtazapine 15 mg tablet (Remeron) 15 mg PO DAILY 02/28/23 06/21/23 06/20/23 History Allergies Allergy/AdvReac Type Severity Reaction Status Date / Time celecoxib [From Celebrex] Allergy Unknown Verified 06/21/23 06:09 latex Allergy rash Verified 06/21/23 06:09 pregabalin [From Lyrica] Allergy ALGY-Rash Verified 06/21/23 06:09 rofecoxib [From Vioxx] Allergy Unknown Verified 06/21/23 06:09 sertraline [From Zoloft] Allergy Unknown Verified 06/21/23 06:09 valdecoxib [From Bextra] Allergy Unknown Verified 06/21/23 06:09 NSAIDS (Non-Steroidal AdvReac RASH Verified 06/21/23 06:09 Anti-Inflamma Current Medications Generic Name Dose Route Start Last Admin Trade Name Freq PRN Reason Stop Dose Admin Sodium Chloride 1,000 mls @ 30 mls/hr 06/21/23 06:15 06/21/23 06:20 Sodium Chloride 0.9% IV 06/22/23 06:14 30 mls/hr .Q24H LYNNE Administration PFSH Anesthesia Medical History Cervical spondylosis with radiculopathy GERD (gastroesophageal reflux disease) Insomnia Cervical spondylosis Depression Dyslipidemia Polyarthralgia DDD (degenerative disc disease) Chronic pain syndrome Family History Other CAD (coronary artery disease) Cancer Stroke Social History Smoking and tobacco/nicotine status: former use of tobacco/nicotine Alcohol intake: never Substance/Drug Use: never Lives independently: Yes Household members: spouse Marital status: service: No Current occupational status: disabled Current gender identity: Male Data Anesthesia Cardiac Studies: No Data to Display
--- NOTE | 2023-06-21 06:53 | PC.NURSE ---
block to right shoulder with anesthesia, time out prior complete. vitals stable. Pt tolerated well.
--- NOTE | 2023-06-21 06:57 | P.HP_ITS ---
Same Day Surgery H&P Indication for Procedure/HPI DATE OF PROCEDURE: June 21, 2023 CHIEF COMPLAINT/INDICATIONFOR SURGICAL PROCEDURE: Right shoulder SLAP lesion PREOP DIAGNOSIS: Right shoulder SLAP lesion, subacromial impingement PLANNED PROCEDURE: Operation Date: 06/21/23 07:00 Proposed Procedures p Shoulder Arthroscopy(Right) - Lewis Willson DO s Bicep Tenotomy vs tenodesis(Right) - Lewis Willson DO Medications/Allergies* Home Medications Medication Instructions Recorded Confirmed Type ondansetron HCl 4 mg tablet 4 mg PO Q8H PRN Nausea 01/11/21 06/21/23 History (Zofran) promethazine 25 mg tablet 25 mg PO TID PRN Nausea 06/17/21 06/21/23 History cyclobenzaprine 10 mg tablet 10 mg PO TID 01/03/22 06/21/23 History tamsulosin 0.4 mg capsule (Flomax) 0.4 mg PO BEDTIME 01/03/22 06/21/23 History hydrocodone 10 mg-acetaminophen 1 tab PO Q6H PRN Pain 07/11/22 06/21/23 History 325 mg tablet pantoprazole [Protonix] 40 mg PO DAILY 08/16/22 06/21/23 History hydroxyzine HCl 25 mg tablet 25 mg PO DAILY 02/28/23 06/21/23 History mirtazapine 15 mg tablet (Remeron) 15 mg PO DAILY 02/28/23 06/21/23 History Allergies/Adverse Reactions Allergy/AdvReac Type Severity Reaction Status Date / Time celecoxib [From Celebrex] Allergy Unknown Verified 06/21/23 06:09 latex Allergy rash Verified 06/21/23 06:09 pregabalin [From Lyrica] Allergy ALGY-Rash Verified 06/21/23 06:09 rofecoxib [From Vioxx] Allergy Unknown Verified 06/21/23 06:09 sertraline [From Zoloft] Allergy Unknown Verified 06/21/23 06:09 valdecoxib [From Bextra] Allergy Unknown Verified 06/21/23 06:09 NSAIDS (Non-Steroidal AdvReac RASH Verified 06/21/23 06:09 Anti-Inflamma Current Medications: Generic Name Dose Route Start Last Admin Trade Name Freq PRN Reason Stop Dose Admin Sodium Chloride 1,000 mls @ 30 mls/hr 06/21/23 06:15 06/21/23 06:20 Sodium Chloride 0.9% IV 06/22/23 06:14 30 mls/hr .Q24H LYNNE Administration Pertinent History/Comorbid Conditions* Medical History (Updated 05/12/23 @ 01:52 by Orin Mendes MD) Cervical spondylosis with radiculopathy GERD (gastroesophageal reflux disease) Insomnia Cervical spondylosis Depression Dyslipidemia Polyarthralgia DDD (degenerative disc disease) Chronic pain syndrome Family History (Updated 08/14/19 @ 13:57 by Beronica Galvez LPN) CAD (coronary artery disease) Cancer Stroke Social History Smoking and tobacco/nicotine status: former use of tobacco/nicotine Alcohol intake: never Substance/Drug Use: never Lives independently: Yes Household members: spouse Marital status: service: No Current occupational status: disabled Current gender identity: Male Pertinent Exam Findings alert, oriented x 3, operative site marked and procedure specific exam findings Right shoulder positive [place]'s positive speeds, tenderness directly over bicipital tendon groove, subacromial impingement symptoms with positive [place] Recommendations Surgery/Procedure today Other Plans: Plan to proceed to the OR today for right shoulder diagnostic and surgical arthroscopy with subacromial decompression bicep tenotomy versus tenodesis. Patient understands and Zetts procedure risk benefits complication alternatives of surgery through shared decision make elects proceed with surgical intervention all questions answered. Coding Level of Care Code Acute Code for Pavel Stovall
[2023-06-21] MEDS: ceFAZolin 2,000 MG in sodium chloride 0.9% (plus) 50 ML 100 MG IV (07:02)
--- NOTE | 2023-06-21 07:35 | ANES.PROC ---
Anesthesia Procedures Procedure/Date: 06/21/23 Nerve Block ^: Nerve Block 1: Main Anesthesia: general anesthesia Time Out Performed: Yes Consent: requested by attending/covering physician, from patient, from other, risks and benefits reviewed and patient agrees to proceed Nerve block location: interscalene (R) Anesthesia monitors applied: pulse oximetry, EKG, BP cuff and oxygen Nerve block position: semi sitting Anesthetic Used: ropivicaine 0.5% (15 ml) Ultrasound used to: recognize landmarks, visualize and ID brachial plexus, in supraclavicular region and visualize and ID interscalene groove Nerve Stimulator Used?: No Interscalene/Femoral BLK: 2 stimuplex 22 g needle used for position and inplane approach, visualize local anesthetic spread and no vascular puncture identified Injection: neg aspiration of heme Patient Tolerated Procedure: well Complications: none Additional Comments: Performed by Mynor Figueroa CRNA; supervised by Ene Gonzales DO
--- NOTE | 2023-06-21 08:09 | P.BOP_ITS ---
Date of Procedure: 06/21/2023 Surgeon: [] [facility] Author(s): Pato Willson PA-C Procedure(s) performed: Right shoulder diagnostic and surgical arthroscopy with biceps tenodesis Right shoulder diagnostic and surgical arthroscopy with labral debridement Right shoulder diagnostic and surgical arthroscopy with subacromial decompression (acromioplasty and bursectomy) Findings of the procedure(s): Patient was found to have superior labral tear with good intra-articular tendon quality as result patient underwent a right shoulder biceps tenodesis as well as a labral debridement subacromial decompression procedure went as planned with no complications or issues Estimated blood loss: 2 mL Specimen(s) removed: None Post-operative diagnosis: Right shoulder subacromial impingement, right shoulder SLAP lesion
--- NOTE | 2023-06-21 08:11 | P.OP_ITS ---
Operative Report Date of procedure: June 21, 2023 Surgeon: Lewis Willson DO Supervisor Photoengraving: Pato Willson PA-C: PA was necessary for assistance in this case with arm positioning to execute the procedure, as well as assistance with implantation with bicep tenodesis anchor placement,as well as to assist with wound closure and dressing application. Procedure: Preoperative diagnosis: Right shoulder SLAP tear Right shoulder rotator cuff impingement Post-op diagnosis:? right?shoulder superior?labral tear Right shoulder labral tear right?shoulder?subacromial bursitis/impingement Procedure done: right?shoulder?diagnostic and surgical arthroscopy biceps tenodesis right?shoulder?diagnostic and surgical arthroscopy labral debridement right?shoulder?diagnostic and surgical arthroscopy subacromial decompression (acromioplasty and bursectomy) Surgeon: Lewis Willson DO Estimated blood loss: 2 mL IV fluids: See anesthesia record Implants: Arthrex loop and tack bicep tenodesis kit Complications: None Condition: stable Disposition: same day Brief History: Patient been seen and worked up in the outpatient setting for right?shoulder?ya n.? Pt had an MRI which showed findings below.? Patient's failed conservative treatment and has weakness.? We talked about treatment options far as nonoperative and operative intervention..? We talked about risk benefits complication alternatives surgical nonsurgical treatment options.? Understanding risk of surgery pt agrees to proceed with surgical intervention.? All questions have been answered at this time.? Patient elects proceed with surgery and consent obtained in office. IMPRESSION: 1. Extensive labral tear involving the superior anterior labrum. 2. No rotator cuff tear identified. 3. Prior surgery AC joint. Mild widening of the AC joint without significant impingement upon the rotator cuff tendons. 4. Mild calcific tendinitis noted on the postcontrast imaging. Procedure: Patient seen evaluated in the preoperative holding area.? Consent reviewed and signed with patient.? Once again reviewed patient's MRI results as well as? planned surgical intervention.? Correct extremity marked.? Patient seen evaluated by anesthesia department received regional anesthesia.? Once ready for surgery was taken back to the operative suite.? Patient then subsequently underwent anesthesia per the anesthesia department was transported onto the OR table.? Patient was then placed into a lateral decubitus position with a beanbag and was appropriately secured to the bed.? All bony prominences well-padded.? Patient then had the right upper extremity was then prepped and draped in standard orthopedic fashion.? Patient received appropriate preoperative antibiotics.? Final timeout performed. The right upper extremity was then held in hanging from traction utilizing sterile technique.? Next started with standard diagnostic and surgical arthroscopy with posterior portal position introduced arthroscope into the glenohumeral joint.? Visualized the glenohumeral joint I then introduced a spinal needle within the rotator cuff interval to confirm appropriate anterior portal placement.? Once this was confirmed I then made my small incision and then introduced my arthroscopic shaver into the glenohumeral joint.? After thorough debridement was clearly evident patient had a significant erythema as well as positive liftoff sign of the biceps anchor and biceps tendon tear as it was pulled within the joint.? Significant SLAP tear from the anterior to posterior portion of the superior labrum with an unstable biceps anchor. After flushing the joint fluid, was clearly evident patient had biceps tendon tearing as well as Superior labral tear. Patient had appreciable unstable biceps anchor most pronounced in the superior labrum. Given there appears to be healthy intra-articular tendon plan was for an intra-articular biceps tenodesis at the superior portion as it enters the intertubercular groove. Thermal wand introduced into the rotator interval. I then release of the rotator interval to have appropriate visualization and the ability to perform biceps tenodesis. At this point I established a purple passport cannula which was introduced. Next I performed an Arthrex loop and tack biceps tenodesis. Passer was then made around the tendon luggage tag stitch around and then thru the tendon and around twice I then utilized a thermal wand to release the biceps tendon at the anchor to perform with tenotomy. I then loaded with suture onto an Arthrex 4.75 swivel lock suture anchor. A punch was then placed in appropriate position at the entry point into the intertubercular groove just superior to the subscapularis tendon. Punch was then introduced to the appropriate depth. The suture loaded on the swivel lock was then advanced held under appropriate tension and shoulder lock anchor was then advanced and had excellent fixation. Excess suture was then cut biceps tenodesis was complete. I then utilized a thermal wand to seal the edges of the superior labrum. Next I evaluated the subscapularis tendon which was intact and no evidence of tear. ?Next there was significant labral tearing at biceps anchor and circumferential.? ? I then subsequently utilized a a arthroscopic shaver and thermal wand to perform a labral debridement.? This point time I then visualized the glenohumeral joint.? The glenohumeral joint was found to have grade 1-2? chondromalacia throughout.? Infrapatellar pouch was free of loose bodies from viewing the posterior portal.? Next a visualized the rotator cuff superiorly and there was found to be intact. ?this completed my work within the glenohumeral joint all fluid was suctioned free of the joint.? ?Next I reintroduced the arthroscope posteriorly.? And went to the subacromial space.? I established my lateral working portal at the site of which my spinal needle was marking of the rotator cuff tear.? Thermal wand was then introduced laterally and then I subsequently performed extensive bursectomy of the subacromial space.? Patient had a large anterior bone spur.? At this point time I proceeded with my AC joint resection thermal wand was used and track to the anterior edge of the acromion and then tracked all the way to the AC joint.? Once identified the AC joint previous resection was noted and no need for AC joint resection. I then performed an acromioplasty to complete my subacromial decompression Then subsequently utilized bur to flatten the anterior acromial spur and this was checked both posterior lateral viewing portals to be satisfactory subacromial decompression all adhesions and bursa over top the rotator cuff and subsequently identified the rotator cuff was again intact on the bursal side. ?Next I then introduced the arthroscopic shaver posteriorly to complete my subacromial decompression appropriate complaining all the way up to the lateral edge of the acromion.? This completed the surgery.? All fluid was suctioned from the?shoulder.? All instruments were removed.? The lateral incision was then closed with nylon stitches.? As well as the portal sites closed with portal nylon stitches.? Xeroform 4 x 4's ABD and tape was then applied to the right?shoulder?and was placed into a?shoulder?abduction pillow sling for bicep tenodesis. patient was then awakened from anesthesia and then taken back to PACU in stable condition.? Patient tolerated procedure without any issues. Disposition: Patient taken back in stable condition recovering well.? Dressings on in place clean dry and intact.? Will be nonweightbearing to the right upper extremity.? Follow rotator cuff repair protocol.? Patient to follow-up with me in the office in 2 weeks.? Patient will receive appropriate discharge instruction as well as pain medication postoperatively.? All questions answered.? We will contact the office for any questions or concerns.
--- NOTE | 2023-06-21 08:29 | PM.PACU ---
PACU note Narrative: Patient is a 62-year-old male just underwent a right shoulder arthroscopy. Patient transferred to PACU in stable condition. Pain is well controlled. shoulder Dressing on , dry and in place. Patient's operative arm is in a shoulder immobilizer. Patient is awake and alert and able to respond to my questions accordingly. Patient's fingers are warm with good perfusion. Normal cap refill under 2 seconds. Unable to assess further range of motion in arm due to sling. Unable to assess motor or sensation due to residual anesthesia block. Exam: awake Disposition: discharged
[2023-06-21] MEDS: HYDROcodone-acetaminophen 5-325 mg Tablet 1 TAB PO (09:01)
--- NOTE | 2023-06-21 09:50 | ANE.PACU2 ---
Inpatient post-anesthesia follow up: Airway intact: Yes Vital signs: Temperature 97.2 F Pulse Rate 86 Respiratory Rate 18 Blood Pressure 128/83 Pulse Oximetry 96 Oxygen Delivery Me thod Room Air Oxygen Flow Rate 6 Fraction of Inspir ed Oxygen Hydration adequate: Yes Nausea and vomiting: No Pain level: 1 Mental status: Baseline
== END 2023-06-21 09:53 | disposition home or self-care (01) ==
PROVIDERS: PCP Internal Medicine; Visit Provider Student in an Organized Health Care Education/Training Program
PROC: (CPT 29805; principal; 2023-06-21 07:00)
PROC: (CPT 24310; 2023-06-21 07:00)
PROC: (CPT 29826; 2023-06-21 07:00)
DX: S43.431A Superior glenoid labrum lesion of right shoulder, initial encounter (principal); S43.401A Unspecified sprain of right shoulder joint, initial encounter; X58.XXXA Exposure to other specified factors, initial encounter; M25.811 Other specified joint disorders, right shoulder; M75.51 Bursitis of right shoulder; J44.9 Chronic obstructive pulmonary disease, unspecified; Z99.81 Dependence on supplemental oxygen; I10 Essential (primary) hypertension; K21.9 Gastro-esophageal reflux disease without esophagitis; E78.5 Hyperlipidemia, unspecified; Z87.891 Personal history of nicotine dependence
CPT/HCPCS: 29822; 29826; 29828; C1713; J0131; J0690; J1100; J2250; J2371; J2405; J2704; J2795; J3010; J3490; J7030

== ENCOUNTER → 2023-06-27 09:40 | Outpatient (BNVA) | payer MEDICARE, SELFPAY | PROVIDERS: PCP Internal Medicine; Visit Provider Physician Assistant | DX: Z98.890 Other specified postprocedural states (principal) | CPT/HCPCS: 99024 ==

== ENCOUNTER → 2023-07-06 09:12 | Outpatient (BNVA) | payer MEDICARE, SELFPAY | PROVIDERS: PCP Internal Medicine; Visit Provider Physician Assistant | DX: Z98.890 Other specified postprocedural states (principal) | CPT/HCPCS: 99024 ==

== ENCOUNTER → 2023-08-17 08:38 | Outpatient (BNVA) | payer MEDICARE, SELFPAY | PROVIDERS: Visit Provider Physician Assistant | DX: Z98.890 Other specified postprocedural states (principal) | CPT/HCPCS: 99024 ==

== ENCOUNTER → 2023-11-09 15:30 | Outpatient (BNVA) | payer MEDICARE, SELFPAY | PROVIDERS: Visit Provider Orthopaedic Surgery | DX: M48.062 Spinal stenosis, lumbar region with neurogenic claudication (principal) | CPT/HCPCS: 99214 ==

== ENCOUNTER → 2023-11-16 10:45 | Outpatient (BNVA) | payer MEDICARE, SELFPAY | PROVIDERS: Visit Provider Physician Assistant | DX: Z98.890 Other specified postprocedural states (principal) | CPT/HCPCS: 99213 ==

== ENCOUNTER 2023-12-06 10:15 | Outpatient (CLI) | payer MEDICARE, SELFPAY ==
--- NOTE | 2023-12-06 10:15 | MR_ITS ---
WS: [id number] MRI LUMBAR SPINE NONCONTRAST HISTORY: back pain COMPARISON: 09/06/2022 TECHNIQUE: Sagittal and axial multisequence imaging is submitted. Mild straightening of the normal lumbar lordosis. Progression of degenerative disc base narrowing and desiccation at L4-5 with significant marrow edema in the adjacent endplates of L4 and L5 which has p rogressed. No additional marrow edema and no fracture. There are a few Schmorl's nodes present. Mild disc space narrowing at L5-S1 also. Conus terminates normally at L1-2 disc level. L1-L2: Mild annular disc bulging. Mild facet arthritis. No stenosis. L2-L3: Mild annular disc bulging and facet arthritis. Ligamentum flavum hypertrophy. Mild encroachmen t upon the LEFT traversing L3 nerve root which is new. L3-L4: Mild annular disc bulging with osteophytic ridging, ligamentum flavum and facet arthritis. Dis c encroachment is upon the ventral thecal sac and subarticular recesses. There is a central annular f issure. Mild central, bilateral subarticular recess and foraminal stenosis. Minimal progression since the prior study. L4-L5: LEFT hemilaminectomy defect. Diffuse annular disc bulging with ligamentum flavum and facet art hritis. Broad-based RIGHT foraminal disc protrusion is unchanged. RIGHT foraminal disc protrusion peterson s contact the exiting RIGHT L4 nerve root. Mild osteophytic ridging. There is disc encroaching upon t he traversing L5 nerve roots. Mild LEFT and moderate RIGHT foraminal stenosis. L5-S1: Mild annular disc bulging. Mild facet arthritis. Mild bilateral foraminal stenosis. MR/MR lumbar spine wo con* [id number] IMPRESSION: 1. Progression of degenerative disc disease and marrow edema at L4-5 since 08/20. 2. LEFT hemilaminectomy at L4-5. 3. L4-5: Annular disc bulging with broad-based RIGHT foraminal disc protrusion unchanged. There is continued moderate RIGHT and mild LEFT foraminal stenosis. 4. L3-4: Mild central, bilateral subarticular recess and foraminal stenosis wi th mild progression of stenosis since the prior study. 5. Mild progression of facet joint arthritis throughout the lumbar spine. 6. L5-S1: Mild foraminal stenosis.
== END 2023-12-06 10:22 | disposition home or self-care (01) ==
PROVIDERS: Visit Provider Orthopaedic Surgery
DX: Z98.890 Other specified postprocedural states (principal); M48.062 Spinal stenosis, lumbar region with neurogenic claudication; M47.816 Spondylosis without myelopathy or radiculopathy, lumbar region; M51.36 Other intervertebral disc degeneration, lumbar region; M25.78 Osteophyte, vertebrae; M47.897 Other spondylosis, lumbosacral region; M48.07 Spinal stenosis, lumbosacral region; M79.605 Pain in left leg
CPT/HCPCS: 72148

== ENCOUNTER → 2023-12-14 14:13 | Outpatient (BNVA) | payer MEDICARE, SELFPAY | PROVIDERS: Visit Provider Orthopaedic Surgery | DX: M54.50 Low back pain, unspecified (principal); M79.605 Pain in left leg; M48.062 Spinal stenosis, lumbar region with neurogenic claudication; Z09 Encounter for follow-up examination after completed treatment for conditions other than malignant neoplasm; Z01.818 Encounter for other preprocedural examination | CPT/HCPCS: 99214 ==

== ENCOUNTER 2023-12-22 10:38 | Outpatient (CLI) | payer MEDICARE, SELFPAY ==
[2023-12-22 11:32] LABS: Basophils % 0.6 %; Eosinophils # 0.2 10^3/uL (0.0-0.8); Eosinophils % 3.1 %; Hematocrit 46.8 % (37-53); Lymphocytes # 1.6 10^3/uL (0.8-4.8); Lymphocytes % 24.8 %; Mean Corpuscular HGB Conc 33.3 g/dL (30-55); Mean Corpuscular Volume 96.1 fl (82-101); Mean Platelet Volume 9.6 fL (7.4-10.4); Monocytes # 0.5 10^3/uL (0.2-0.9); Monocytes % 7.3 %; Neutrophils # 4.11 10^3/uL (1.8-7.7); Nucleated Red Blood Cells % 0 %; Platelet Count 209 10^3/cmm (157-399); Red Blood Count 4.87 10^6/uL (3.85-5.65); Red Cell Distribution Width 12.1 % (12.1-15.1); White Blood Count 6.42 10^3/uL (3.29-11.43)
[2023-12-22 11:33] LABS: Charge for UA Resulting for Rev
[2023-12-22 11:53] LABS: Alanine Aminotransferase 17 U/L (0-41); Albumin Level 4.6 g/dL (3.5-5.2); Alkaline Phosphatase 85 U/L (40-130); Anion Gap 14.8 (5-19); Aspartate Amino Transferase 17 U/L (0-40); Blood Urea Nitrogen 17 mg/dL (8-23); Calcium 9.1 mg/dL (8.5-10.5); Carbon Dioxide 28 mmol/L (22-29); Chloride 104 mmol/L (98-107); Globulin 2.6 g/dL (1.3-4.6); Glucose 102 mg/dL (65-115); Osmolality Calculated 296 mOsm/kg (285-295); Potassium 4.8 mmol/L (3.5-5.1); Sodium 142 mmol/L (136-145); Total Bilirubin 0.3 mg/dL (0.15-1.2); Total Protein 7.2 g/dL (6.6-8.7)
[2023-12-22 12:06] LABS: Bilirubin Urine Negative (Negative); Blood Urine 1+ (Negative); Glucose Urine UA Negative (Normal); Ketones Urine Trace (Negative); Leukocyte Esterase Urine Negative (Negative); Nitrate Urine Negative (Negative); Protein Urine Trace (Negative); Urine Appearance Clear (CLEAR); Urine Color Yellow (Yellow)
[2023-12-22 12:08] LABS: Bacteria Urine None Seen /hpf; Hyaline Casts Urine 1.21 /lpf; Squamous Epithelial Cell Urine 0-5 /hpf (0-5); WBC Urine 0-5 /hpf (0-5)
[2023-12-22 12:09] LABS: Specific Gravity, Urine 1.031 (1.005-1.030)
== END 2023-12-22 10:39 | disposition home or self-care (01) ==
LOC: LAB 10:39
PROVIDERS: Visit Provider Orthopaedic Surgery
DX: M48.062 Spinal stenosis, lumbar region with neurogenic claudication (principal); M54.50 Low back pain, unspecified; M79.605 Pain in left leg
CPT/HCPCS: 80053; 81003; 81015; 85025

== ENCOUNTER → 2024-01-16 09:30 | Outpatient (BNVA) | payer MEDICARE, SELFPAY | PROVIDERS: Visit Provider Family Medicine | DX: Z01.818 Encounter for other preprocedural examination (principal) | CPT/HCPCS: 80048; 81003; 85025; 87086 ==

== ENCOUNTER 2024-01-29 17:37 | Inpatient (IN) | payer MEDICARE, SELFPAY ==
[2024-01-29] VITALS (17 sets, daily range): BP systolic 98–122; BP diastolic 58–96; PULSE 77–108; RESP 12–19; TEMP 36.6–37.2; O2SAT 94–99; BMI 16.5; BMI 17.1
[2024-01-29] MEDS: sodium chloride 0.9% 1,000 ML 30 ML IV (09:46)
--- NOTE | 2024-01-29 09:48 | XR_ITS ---
WS: [id number] XR lumbar spine 2-3V* [id number] REASON FOR EXAM: or pic, fusion FINDINGS: Placement of pedicle screws L4-S1 with interbody fusion devices at L4-L5 and L5-S1. Surgical appliances are intact and in proper position and alignment. XR/XR lumbar spine 2-3V* [id number] IMPRESSION: Posterior lumbar fusion without abnormality as above.
--- NOTE | 2024-01-29 10:29 | P.ANESASSM_ITS ---
Pre-Anesthetic Assessment Height/Weight: Height 1.75 m Weight 50.802 kg Temp Pulse Resp BP Pulse Ox O2 Del Method 99 F 96 16 109/84 98 Room Air 01/29/24 09:36 01/29/24 09:36 01/29/24 09:36 01/29/24 09:36 01/29/24 09:36 01/29/24 09:36 Preop Diagnosis: Lumbar stenosis neurogenic claudication Operation Date: 01/29/24 10:45 Proposed Procedures p Spinal Fusion(Not Applicable) - Jim Chavis DO s Posterior Lumbar Interbody Fusion(Not Applicable) - Jim Chavis DO s Sacroiliac Joint Fusion SI Joint Fusion(Bilateral) - Jim Chavis DO Familial anesthetic complications: None Was Beta Emile taken within 24 hours: N/A Was Clonidine taken within 24 hours: N/A Last intake: Intake Last Liquid Date 01/28/24 Last Liquid Time 21:00 Last Solid Date 01/28/24 Last Solid Time 21:00 Social Tobacco and No alcohol Exam alert, oriented x 3, clear to auscultation bilaterally and regular rate & rhythm Airway Mallampati: Class I Dentition: other (no teeth) Pulmonary Chronic Obstructive Pulmonary Disease (no oxygen, no hospital admissions) CV/HEM Hypertension GI Gastroesophageal Reflux Disease [facility] underweight Anesthetic Plan ASA status: 3 Anesthesia: General Risk of > 500 ml blood loss (7ml/kg in children): Yes, adequate IV access and fluids planned Medications/Allergies Home Medications Medication Instructions Recorded Confirmed Last Taken Type promethazine 25 mg tablet 25 mg PO TID PRN Nausea 06/17/21 01/29/24 01/29/24 History cyclobenzaprine 10 mg tablet 10 mg PO TID 01/03/22 01/29/24 01/28/24 History tamsulosin 0.4 mg capsule (Flomax) 0.4 mg PO BEDTIME 01/03/22 01/29/24 01/28/24 History hydrocodone 10 mg-acetaminophen 1 tab PO Q6H PRN Pain 07/11/22 01/29/24 01/29/24 History 325 mg tablet lisinopril 10 mg tablet 10 mg PO BEDTIME #90 tabs 02/01/23 01/29/24 01/28/24 Rx hydroxyzine HCl 25 mg tablet 25 mg PO DAILY 02/28/23 01/29/24 01/27/24 History albuterol sulfate 90 mcg/actuation 1 puff inhalation Q4H PRN 01/16/24 01/26/24 1 Month Ago History aerosol inhaler (Ventolin HFA) Shortness Of Breath ~12/26/23 budesonide-formoterol HFA 80 2 puff inhalation BID 01/16/24 01/26/24 6 Weeks Ago History mcg-4.5 mcg/actuation aerosol ~12/15/23 inhaler (Symbicort) chnjfousun-whvvtuxfjjhfs-pbzcybqo 1 tab PO Q8H 01/16/24 01/26/24 01/25/24 History 50 mg-325 mg-40 mg tablet sulfamethoxazole 800 1 tab PO BID 7 days #14 tabs 01/23/24 01/29/24 01/28/24 Rx mg-trimethoprim 160 mg tablet (Bactrim DS) Allergies Allergy/AdvReac Type Severity Reaction Status Date / Time celecoxib [From Celebrex] Allergy Unknown Verified 01/16/24 09:37 latex Allergy rash Verified 01/16/24 09:37 pregabalin [From Lyrica] Allergy ALGY-Rash Verified 01/16/24 09:37 rofecoxib [From Vioxx] Allergy Unknown Verified 01/16/24 09:37 sertraline [From Zoloft] Allergy Unknown Verified 01/16/24 09:37 valdecoxib [From Bextra] Allergy Unknown Verified 01/16/24 09:37 NSAIDS (Non-Steroidal AdvReac RASH Verified 01/16/24 09:37 Anti-Inflamma Current Medications Generic Name Dose Route Start Last Admin Trade Name Freq PRN Reason Stop Dose Admin Sodium Chloride 1,000 mls @ 30 mls/hr 01/29/24 09:30 01/29/24 09:46 Sodium Chloride 0.9% IV 01/30/24 09:29 30 mls/hr .Q24H LYNNE Administration PFSH Anesthesia Medical History Cervical spondylosis with radiculopathy GERD (gastroesophageal reflux disease) Insomnia Cervical spondylosis Depression Dyslipidemia Polyarthralgia DDD (degenerative disc disease) Chronic pain syndrome Family History Other CAD (coronary artery disease) Cancer Stroke Social History Smoking and tobacco/nicotine status: never used tobacco/nicotine Alcohol intake: never Substance/Drug Use: never Lives independently: Yes Household members: spouse Marital status: service: No Current occupational status: disabled Current gender identity: Male Data Anesthesia Cardiac Studies: No Data to Display
--- NOTE | 2024-01-29 10:59 | W.PM.OPSUD ---
Surgery/Procedure H&P Update DATE OF PROCEDURE: January 29, 2024 DATE H&P PERFORMED: 01/16/24 H&P UPDATE INFORMATION: I have reviewed H&P completed within last 30 days, I have examined patient prior to procedure and No changes to prior documentation PREOP DIAGNOSIS: Lumbar stenosis neurogenic claudication PLANNED PROCEDURE: Operation Date: 01/29/24 10:45 Proposed Procedures p Spinal Fusion(Not Applicable) - DO jackelyn Carreon Posterior Lumbar Interbody Fusion(Not Applicable) - DO jackelyn Carreon Sacroiliac Joint Fusion SI Joint Fusion(Bilateral) - Jim Chavis DO
--- NOTE | 2024-01-29 11:00 | W.PM.OPSUD ---
Surgery/Procedure H&P Update DATE OF PROCEDURE: January 29, 2024 DATE H&P PERFORMED: 01/17/24 H&P UPDATE INFORMATION: I have reviewed H&P completed within last 30 days, I have examined patient prior to procedure and No changes to prior documentation PREOP DIAGNOSIS: Lumbar stenosis neurogenic claudication PLANNED PROCEDURE: Operation Date: 01/29/24 10:45 Proposed Procedures p Spinal Fusion(Not Applicable) - DO jackelyn Carreon Posterior Lumbar Interbody Fusion(Not Applicable) - DO jackelyn Carreon Sacroiliac Joint Fusion SI Joint Fusion(Bilateral) - Jim Chavis DO
[2024-01-29] MEDS: fentaNYL 50 mcg/mL INJ 2mL IVP ×2 (11:48→15:24)
[2024-01-29] MEDS: ceFAZolin 2,000 mg SDV 2000 MG IVP (12:02)
[2024-01-29] MEDS: vancomycin 1,000 MG SDV 1000 MG XX (13:30)
[2024-01-29] MEDS: heparin, porcine 1,000 unit/mL INJ 10 mL 10000 UNIT IRRIGATION (13:31)
[2024-01-29] MEDS: lidocaine-epi 1% 20 mL INJ INJECTION (13:31)
--- NOTE | 2024-01-29 15:24 | PM.OP ---
Operative Report Date of procedure: January 29, 2024 Pre-op diagnosis: Lumbar stenosis with neurogenic claudication Post-op diagnosis: same Procedure done: 1. L5/S1 Interbody fusion wposterolateral fusion 2. L4/5 Interbody fusion with posterolateral fusion 3. Instrumentation L4-S1 4. Cage at L4/5 5. Cage L5/S1 6. L5-S1 laminectomy with facetectomy for purpose of decompressing nerve 7. L4-5 laminectomy with facetectomy for purpose of decompressing nerve 8. use of autograft from same incision 9. allograft 10. Bone marrow aspirate from right iliac crest 11. Use of computer navigation / stereotactic for spine Surgeon: Jim Chavis DO Estimated blood loss (mL): 300 Procedure: 1. L5/S1 Interbody fusion wposterolateral fusion 2. L4/5 Interbody fusion with posterolateral fusion 3. Instrumentation L4-S1 4. Cage at L4/5 5. Cage L5/S1 6. L5-S1 laminectomy with facetectomy for purpose of decompressing nerve 7. L4-5 laminectomy with facetectomy for purpose of decompressing nerve 8. use of autograft from same incision 9. allograft 10. Bone marrow aspirate from right iliac crest 11. Use of computer navigation / stereotactic for spine Patient is brought to the operative suite. After undergoing anesthesia, the patient had neuro monitoring attached. Patient was then placed in the prone position on the Elliot table. All areas of impingement were well-padded. Patient was then prepped and draped in the normal sterile fashion. Skin incision was then made from L4-S1. Subperiosteal dissection was made out to the transverse processes of L4 bilaterally, L5 bilaterally and S1 ala bilaterally. Attention was then brought to the [employer] bone marrow aspirate kit was used to aspirate bone marrow aspirate. This was done by using the sharp probe to open up the bone. Aspiration was performed and then the blunt probe was then used to dissect down to through the bone tunnel. An aspirating well drawn back a millimeter approximately 20 cc of bone marrow aspirate was used. Admixed with the allograft and autograft bone that will be used. Patient is brought to present to pins in the right iliac crest. These pins were removed at the end the case. This is where the fiducial was attached with computer navigation. The computer navigation was attached and the serial tato and spun on the patient information from the C-arm was then loaded the computer for the use of computer navigation for pedicle screws. The technique for placing the pedicle screws was to use a drill followed by the gearshift probe linked to computer navigation. Followed by the ball probe to feel the superior inferior medial lateral butler of the pedicles. Then placement of the screws using computer navigation. Was done at each pedicle. Screws were placed at L4 bilaterally, L5 bilaterally and S1 bilaterally. Next attention was brought to performing the laminectomy ofL5. This was done using the high-speed bur Kerrisons and curettes. Once the lamina was removed and then attention was brought to performing a partial facetectomy on the contralateral side. This was done again using the high-speed bur curettes and Kerrisons. The ligamentum flavum was taken down bilaterally from L5 to S1. Attention was then brought to the facet on the ipsilateral side. The facet was taken down. The S1 nerve was decompressed as it passed around the S1 pedicle. The laminectomy was done for purposes of decompressing the nerve as well as placement of the cage. The L5 nerve was identified as it traversed through the L5/S1 foramen. The thecal sac was identified and retracted. The L5/S1 disc base was identified. Using a knife the disc base was opened. And then sequential madiha were placed. The first shaver was a 6 and the last shaver was a 7. Using a pituitary and down going curette the endplates were scraped and disc material was removed from the space. Once adequate decompression of the disc base was felt to be had. Osteoamp sponge was packed into the anterior aspect of the disc base. Then a size 8 cage from [place] was placed after packing osteoamp into the cage. While placing the cage the thecal sac and S1 nerve was protected. C arm was used to ensure that the cages placed in the appropriate position. Next attention was brought to performing the laminectomy ofL4. This was done using the high-speed bur Kerrisons and curettes. Once the lamina was removed and then attention was brought to performing a partial facetectomy on the contralateral side. This was done again using the high-speed bur curettes and Kerrisons. The ligamentum flavum was taken down bilaterally from L4 to L5. Attention was then brought to the facet on the ipsilateral side. The facet was taken down. The L5 nerve was decompressed as it passed around the L5 pedicle. The laminectomy was done for purposes of decompressing the nerve as well as placement of the cage. The L4 nerve was identified as it traversed through the L4/5 foramen. The thecal sac was identified and retracted. The L4/5 disc base was identified. Using a knife the disc base was opened. And then sequential madiha were placed. The first shaver was a 6 and the last shaver was a 6. Using a pituitary and down going curette the endplates were scraped and disc material was removed from the space. Once adequate decompression of the disc base was felt to be had. Osteoamp sponge was packed into the anterior aspect of the disc base. Then a size 7 cage from [facility] was placed after packing osteoamp into the cage. While placing the cage the thecal sac and L5 nerve was protected. C arm was used to ensure that the cages placed in the appropriate position. Attention was then brought to attaching the rods to the screws placed in the L 4 bilaterally, L5 bilaterally and S1 bilaterally. Caps were torqued into position. Locking the construct in place. Wound was copiously irrigated and then attention was brought to decorticating the facets and transverse processes laterally. Bone that was taken down from the lamina was used along with osteoamp fibers and sponges were packed into the lateral gutters along the facet joints. This was done bilaterally. Wound was then closed in a layered fashion starting with the thoracolumbar fascia. 0-vicryl was used the sub cutaneous tissue was closed with 2-0 vicryl and skin with 4-0 monocryl. Glue was then used to seal the skin and a steril dressing was applied. Patient was then placed in the supine position. The endotracheal tube was removed and patient was transferred to the PACU in stable condition.
[2024-01-29] MEDS: HYDROmorphone 1 mg/mL INJ 1 mL 0.25 MG IVP (16:06)
[2024-01-29] MEDS: oxyCODONE-APAP 10-325 mg Tablet PO (16:40)
--- NOTE | 2024-01-29 18:10 | ANE.PACU2 ---
Inpatient post-anesthesia follow up: Airway intact: Yes Vital signs: Temperature 98.5 F Pulse Rate 91 Respiratory Rate 18 Blood Pressure 105/70 Pulse Oximetry 97 Oxygen Delivery Me thod Room Air Oxygen Flow Rate Fraction of Inspir ed Oxygen Hydration adequate: Yes Nausea and vomiting: No Pain level: 1 Mental status: Baseline
[2024-01-29] MEDS: lactated ringers 1,000 ML 90 ML IV (18:15)
[2024-01-29] MEDS: docusate sodium 100 mg Capsule PO (18:18)
--- NOTE | 2024-01-29 20:25 | PC.NURSE ---
At 2014 this nurse went to assess the patient and administer meds as ordered. This nurse explained what medications were ordered. The patient then asked when he was going to get more pain medicine. This nurse evaluated the MAR and noticed he had toradol and morphine available, and offered IV toradol. The patient then changed his tone and demeanor and stated Take this shit off me. I'm leaving. You won't give me what was ordered. This nurse explained that there was also morphine available that the patient could have at this time, but the patient refused, stating Palmira said he was going to order me oxycodone. This nurse explained that hydrocodone was ordered but only available Q6H. The patient then waved his arms and stated No no, that's from the pain clinic, I follow at the pain clinic. Let me leave. I can take better care of myself at home, so why should I stay here? This nurse said okay and left the room to notify KRYS Washington the charge nurse. KRYS Washington notified Dr. Chavis via phone call that the patient wanted to leave against medical advice and received orders to take his hemovac drain out and let the patient leave. This nurse and KRYS Washington then returned to the room and explained risks of leaving AMA, including that he had not worked with physical therapy yet. He stated This isn't my first rodeo, I've had back surgeries in the past and I know what I'm doing. I don't need to see the physical therapist. The patient then signed the AMA form and his IV, cameron catheter, and hemovac drain were removed. The patient was escorted off the floor in a wheelchair by his at 2024.
--- NOTE | 2024-01-29 20:27 | PC.NURSE ---
Patient care nurse come out around 20:15 to notify this nurse that the patient wanted to leave AMA. Dr. Chavis was notified of patients wishes. This nurse went in and explained the risks of patient leaving, including risk of infection, possible hematoma development, improper body mechanics and damage to the body due to not working with physical therapy yet, as well as insurance complications from leaving AMA. This nurse educated patient and patients about S/S of infection as well as hematoma development and things to look out for especially symptoms that would indicate him needing to return to the ER. AMA form signed by patient, witnessed by this nurse and patient care nurse. Orders were given to remove drain, IV, and cameron. All items removed, patient tolerated well. Patient was safely wheeled off of the unit by patients at 2024.
--- NOTE | 2024-01-30 13:05 | PM.DCS ---
Discharge Providers Date of Admission: 01/29/24 17:37 Date of Discharge: January 30, 2024 Attending Provider at Admission: Jim Chavis DO Attending Provider at Discharge: Jim Chavis DO Primary Care Provider: NENITA Solano Physical Exam Narrative: Patient left AMA last night Urinary Catheter Management: Latex Free: Cath Placed During This Visit: yes Reason for Continuing Indwelling Catheter: Perioperative Use in Selected Surgeries Urinary Catheter Date of Insertion: 01/29/24 Urinary Catheter Time of Insertion: 12:20 Discharge Data Studies Completed and Pending Completed Studies During Hospitalization Category Date Time Status XR lumbar spine 2-3V* [id number] Routine Exams 01/29/24 09:48 Completed Radiology Impressions Lumbar Spine X-Ray 01/29/24 09:48 IMPRESSION: Posterior lumbar fusion without abnormality as above. Laboratory Results Blood Type AB Positive 01/29/24 09:46 Rho(D) Type Rh positive 01/29/24 09:46 Antibody Screen Negative 01/29/24 09:46 Vitals Last Vital Signs Temp 98.5 F 01/29/24 18:47 Pulse 91 01/29/24 18:47 Resp 18 01/29/24 18:47 BP 105/70 01/29/24 18:47 Pulse Ox 97 01/29/24 18:47 O2 Del Method Room Air 01/29/24 18:47 Discharge Plan Discharge Patient Disposition: Home Prescriptions: No Action cyclobenzaprine 10 mg tablet 10 mg PO TID Patient Comments: 2 at bedtime hydroxyzine HCl 25 mg tablet 25 mg PO DAILY tamsulosin [Flomax] 0.4 mg capsule 0.4 mg PO BEDTIME xqlynvpaim-flpkqtucanycb-acww 50-325-40 mg tablet 1 tab PO Q8H albuterol sulfate [Ventolin HFA] 90 mcg/actuation HFA aerosol inhaler 1 puff inhalation Q4H PRN (Reason: Shortness Of Breath) budesonide-formoterol [Symbicort] 80-4.5 mcg/actuation HFA aerosol inhaler 2 puff inhalation BID lisinopril 10 mg tablet 10 mg PO BEDTIME Qty: 90 4RF sulfamethoxazole-trimethoprim [Bactrim DS] 800-160 mg tablet 1 tab PO BID 7 Days Qty: 14 0RF oxycodone 5 mg tablet 5 mg PO Q4H MDD 6 PRN (Reason: pain) 7 Days Qty: 40 0RF promethazine 25 mg Tablet 25 mg PO TID PRN (Reason: Nausea) Patient Instructions: Acute Wound Care (DC), Opioid Safety, Post Anesthesia Care Discharge Attestations Time Spent in Discharge Care*: less than 30 min Quality Metrics Clinical Quality Measures [ No reported AMI, CVA or VTE this stay] Coding Level of Care Code Acute Code for Chg Fwhiren
== END 2024-01-29 20:25 | disposition left against medical advice (07) | DRG 455 ==
LOC: MEDSURG 01-30 00:28
PROVIDERS: Admitting Provider Orthopaedic Surgery; Visit Provider Orthopaedic Surgery
PROC: 0SG00AJ Fusion of Lumbar Vertebral Joint with Interbody Fusion Device, Posterior Approach, Anterior Column, Open Approach (ICD-10-PCS; principal; 2024-01-29 10:25)
PROC: 0SG00AJ Fusion of Lumbar Vertebral Joint with Interbody Fusion Device, Posterior Approach, Anterior Column, Open Approach (ICD-10-PCS; CPT 22612; 2024-01-29 10:25)
PROC: 0SG00AJ Fusion of Lumbar Vertebral Joint with Interbody Fusion Device, Posterior Approach, Anterior Column, Open Approach (ICD-10-PCS; CPT 27280; 2024-01-29 10:25)
DX: M48.062 Spinal stenosis, lumbar region with neurogenic claudication (principal); K21.9 Gastro-esophageal reflux disease without esophagitis; G47.00 Insomnia, unspecified; F32.A Depression, unspecified; E78.5 Hyperlipidemia, unspecified; G89.4 Chronic pain syndrome; Z53.29 Procedure and treatment not carried out because of patient's decision for other reasons
CPT/HCPCS: 36415; 51702; 72100; 76000; 86850; 86900; C1713; C9359; G0378; J0330; J0690; J1100; J1170; J1644; J2371; J2405; J2704; J3010; J3370; J3490; J3535; J7030; J7120

== ENCOUNTER → 2024-02-13 14:45 | Outpatient (BNVA) | payer MEDICARE, SELFPAY | PROVIDERS: Visit Provider Orthopaedic Surgery | DX: Z98.1 Arthrodesis status (principal) | CPT/HCPCS: 99024 ==

== ENCOUNTER → 2024-02-15 13:30 | Outpatient (BNVA) | payer MEDICARE, SELFPAY | PROVIDERS: Visit Provider Orthopaedic Surgery | DX: Z98.1 Arthrodesis status (principal) | CPT/HCPCS: 99024 ==

== ENCOUNTER → 2024-03-12 15:40 | Outpatient (BNVA) | payer MEDICARE, SELFPAY | PROVIDERS: Visit Provider Orthopaedic Surgery | DX: Z98.1 Arthrodesis status (principal) | CPT/HCPCS: 72100; 99024 ==

== ENCOUNTER → 2024-05-07 14:05 | Outpatient (BNVA) | payer MEDICARE, SELFPAY | PROVIDERS: Visit Provider Orthopaedic Surgery | DX: Z98.1 Arthrodesis status (principal) | CPT/HCPCS: 72100; 99024 ==

== ENCOUNTER → 2024-08-08 14:28 | Outpatient (BNVA) | payer MEDICARE, SELFPAY | PROVIDERS: Visit Provider Orthopaedic Surgery | DX: Z98.1 Arthrodesis status (principal); M47.22 Other spondylosis with radiculopathy, cervical region | CPT/HCPCS: 72050; 72100; 99214 ==

== ENCOUNTER 2024-08-15 11:07 | Outpatient (CLI) | payer MEDICARE, SELFPAY ==
--- NOTE | 2024-08-15 11:00 | MR_ITS ---
WS: [id number] MRI CERVICAL SPINE NONCONTRAST HISTORY: neck pain COMPARISON: 03/29/2023 Technique: Multiplanar, multisequence noncontrast imaging of the cervical spine. Normal cervical alignment. Degenerative disc disease most significant at C4-5 and C5-6 with disc bulging. No fractures. Signal within the cervical cord is normal. Visualized posterior fossa is unremarkable. Craniocervical junction, C1 and C2 relationship, odontoid process and soft tissues are normal. C2-C3: Normal. C3-C4: Mild disc bulge with osteophytic ridging. Moderate bilateral facet arthritis. No significant foraminal stenosis. C4-C5: Diffuse osteophytic ridging with annular disc bulging and mild facet arthritis. Mild central stenosis with moderate bilateral foraminal stenosis. C5-C6: Diffuse osteophytic ridging with annular disc bulging. Central disc protrusion slightly more prominent than on the prior exam. Mild bilateral foraminal stenosis and facet arthritis. C6-C7: Diffuse annular disc bulging with osteophytic ridging. Effacement of ventral CSF. Moderate central and bilateral foraminal stenosis. C7-T1: Mild osteophytic ridging. No stenosis. Mild facet arthritis. Paraspinal soft tissue are normal. MR/MR cervical spin wo con* [id number] IMPRESSION: 1. No significant progression of stenoses or degenerative cervical spondylosis since 03/29/2023. 2. Mild disc bulging with contact on the ventral cervical cord at C4-5, C5-6 a nd C6-7. 3. Bilateral facet joint arthropathy from C3-4 through C7-T1. 4. C4-5: Mild central with moderate bilateral foraminal stenosis due to disc o steophyte disease. 5. C5-6: Central disc protrusion is slightly more prominent as compared to the prior study. Mild central with bilateral foraminal stenosis. 6. C6-7: Moderate central and bilateral foraminal stenosis.
== END 2024-08-15 11:08 | disposition home or self-care (01) ==
PROVIDERS: Visit Provider Orthopaedic Surgery
DX: M50.321 Other cervical disc degeneration at C4-C5 level (principal); M50.322 Other cervical disc degeneration at C5-C6 level; M50.323 Other cervical disc degeneration at C6-C7 level; M47.892 Other spondylosis, cervical region; M47.893 Other spondylosis, cervicothoracic region; M48.02 Spinal stenosis, cervical region; M25.78 Osteophyte, vertebrae; M50.222 Other cervical disc displacement at C5-C6 level; M50.31 Other cervical disc degeneration, high cervical region; R93.7 Abnormal findings on diagnostic imaging of other parts of musculoskeletal system
CPT/HCPCS: 72141

== ENCOUNTER → 2024-11-14 11:06 | Outpatient (BNVA) | payer MEDICARE, SELFPAY | PROVIDERS: Visit Provider Orthopaedic Surgery | DX: M54.2 Cervicalgia (principal); Z46.89 Encounter for fitting and adjustment of other specified devices | CPT/HCPCS: 99214 ==

== ENCOUNTER → 2025-01-28 14:46 | Outpatient (BNVA) | payer MEDICARE, SELFPAY | PROVIDERS: Visit Provider Orthopaedic Surgery | DX: M48.02 Spinal stenosis, cervical region (principal); M47.22 Other spondylosis with radiculopathy, cervical region; Z98.1 Arthrodesis status | CPT/HCPCS: 72050; 72100; 99213 ==

== ENCOUNTER → 2025-03-25 11:03 | Outpatient (BNVA) | payer MEDICARE, SELFPAY | PROVIDERS: Referring Provider Orthopaedic Surgery; Visit Provider Specialist | DX: R20.0 Anesthesia of skin (principal); R20.2 Paresthesia of skin; G56.20 Lesion of ulnar nerve, unspecified upper limb; G56.10 Other lesions of median nerve, unspecified upper limb | CPT/HCPCS: 95911 ==

== ENCOUNTER 2025-03-26 15:11 | Emergency (ER) | payer MEDICARE, SELFPAY ==
--- OUTSIDE RECORDS SUMMARY | 2024-03-16 03:00 | XMS_ITS ---
Author Organization [facility] Address [address] [place] [address] Support Name Relationship Address , Maryan De La Vega Emergency Contact [address] [place] [address] Rudy De La Vega Guarantor Unknown [phone] Care Team Providers Care Electrical Design Engineer Name Role Phone Elvin Beck Primary Care Provider Unavailabl e Elvin Beck Unavailable [phone] Migration, Provider Unavailable Unavailable REASON FOR VISIT EMR-Clyde Encounters Encounter Location Date Provider Diagnosis Migrated_Facility 0 0 03/16/2024 Provider Migration Plan Of Treatment Medication Medication Name Sig Start Date Stop Date Notes HYDROcodone-Acetaminop hen 10-325 MG Oral Tablet 1 Tablet Every 6 Hours PRN not to exceed 4 tabs per day 12/16/2023 01/15/2024 *Reorder from [facility] for eRx and Interaction Alerts* Next Appt Details Provider Name:Joanne echols, 05/01/2025 10:00:00 AM, [address] [place], [address], Progress Notes * Rudy DE LA VEGA WDOB:[birth year] (64 yo M)Acc No.[id number]:03/16/2024 Patient: Rudy MACIEL :1960 A ge:63 Y S ex:Male Address:[address] [place] [address], [address] * Refills Stop HYDROcodone-Acetaminophen 10-325 MG Oral Tablet, 1 Tablet Every 6 Hours PRN not to exceed 4 tabs per day Subjective: * Chief Complaints: * E MR-Clyde * * Date:
--- OUTSIDE RECORDS SUMMARY | 2024-03-17 03:00 | XMS_ITS ---
Author Organization [facility] Address [address] [place] [address] Support Name Relationship Address , Maryan De La Vega Emergency Contact [address] [place] [id number] Rudy De La Vega Guarantor Unknown [phone] Care Team Providers Care Journeyman Powerhouse Operator Name Role Phone Elvin Beck Primary Care Provider Unavailabl e Elvin Beck Unavailable [phone] Migration, Provider Unavailable Unavailable Allergies Allergen (clinical drug ingredient) Drug/Non Drug Allergy documented on EMR Reaction Allergy Type Onset Date Status Latex Latex Unknown Allergy Active Non-steroidal anti-inflammatory agent (FN) NSAIDs Unknown Drug Allergy Active REASON FOR VISIT EMR-Cly[facility] Medications Medication SIG (Take, Route, Frequency, Duration) Notes Start Date End Date Status Mirtazapine 15 MG Tablet TAKE ONE TABLET BY MOUTH EVERY EVENING Oral Active Symbicort 80-4.5 MCG/ACT Aerosol INHALE TWO PUFFS BY MOUTH EVERY MORNING AND IN THE EVENING Inhalation Active hydrOXYzine HCl 25 MG Tablet TAKE ONE TABLET BY MOUTH THREE TIMES DAILY NEEDED FOR ANXIETY Oral Active Ventolin HFA 108 (90 Base) MCG/ACT Aerosol Solution INHALE 1 PUFF BY MOUTH EVERY MORNING, AT NOON, IN THE EVENING AND BEFORE BEDTIME. Inhalation Active Social History Social History Additional Details Category Social Info Options Details Migrated Social History Migrated Social History Alcoholic beverages? - No, Applying for disability? - No, Currently on disability? - Yes, Drug or substance abuse? - No, exposure to toxins/poisonous substances at work - No, I am interested in quitting. - Yes, Involved in any legal proceedings or lawsuits? - No, Marital Status - , Nonprescription drug use? - No, Participation in detoxification or rehabilitation - No, Smoking - 05/25 PPD, Smoking status (MU) - Current every day smoker, Working currently? 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 * Social History: M igrated Social History: M igrated Social History: Alcoholic beverages? - No, A pplying for disability? - No, C urrently on disability? - Yes, D rug or substance abuse? - No, e xposure to toxins/poisonous substances at work - No, I am interested in quitting. - Yes, I nvolved in any legal proceedings or lawsuits? - No, M arital Status - , N onprescription drug use? - No, P articipation in detoxification or rehabilitation - No, S moking - 1/4 PPD, S moking status (MU) - Current every day smoker, W orking currently? - No. * Medications: T akingSymbicort 80-4.5 MCG/ACT Aerosol INHALE TWO PUFFS BY MOUTH EVERY MORNING AND IN THE EVENING Inhalation Ventolin HFA 108 (90 Base) MCG/ACT Aerosol Solution INHALE 1 PUFF BY MOUTH EVERY MORNING, AT NOON, IN THE EVENING AND BEFORE BEDTIME. Inhalation hydrOXYzine HCl 25 MG Tablet TAKE ONE TABLET BY MOUTH THREE TIMES DAILY NEEDED FOR ANXIETY Oral Mirtazapine 15 MG Tablet TAKE ONE TABLET BY MOUTH EVERY EVENING Oral Taking Symbicort 80-4.5 MCG/ACT Aerosol INHALE TWO PUFFS BY MOUTH EVERY MORNING AND IN THE EVENING Inhalation Taking Ventolin HFA 108 (90 Base) MCG/ACT Aerosol Solution INHALE 1 PUFF BY MOUTH EVERY MORNING, AT NOON, IN THE EVENING AND BEFORE BEDTIME. Inhalation Taking hydrOXYzine HCl 25 MG Tablet TAKE ONE TABLET BY MOUTH THREE TIMES DAILY NEEDED FOR ANXIETY Oral Taking Mirtazapine 15 MG Tablet TAKE ONE TABLET BY MOUTH EVERY EVENING Oral * Allergies: L atex: AllergyNSAIDs: Allergy * * Date:
--- OUTSIDE RECORDS SUMMARY | 2024-03-27 03:00 | XMS_ITS ---
Author Organization [facility] Address [address] [place] [address] Support Name Relationship Address , Maryan De La Vega Emergency Contact [address] [place] [address] Rudy De La Vega Guarantor Unknown [phone] Care Team Providers Care Pawn Shop Keeper Name Role Phone Elvin Beck Primary Care Provider Elvin Klein Unavailable [phone] REASON FOR VISIT 6 wk follow up Encounters Encounter Location Date Provider Diagnosis [facility] [address] [place] [address] 03/27/2024 Elvin Beck Plan Of Treatment Next Appt Details Provider Name:Joanne echols, 05/01/2025 10:00:00 AM, [address] [place], [address], Progress Notes * Rudy DE LA VEGA WDOB:[birth year] (64 yo M)Acc No.[id number]:03/27/2024 Progress Notes Patient: Rudy Hernandez Provider: Ryan Beck D.O. :1960 A ge:63 Y S ex:Male Date:03/27/2024 Address:[address] [place], [place] [id number] Pcp:Elvin Beck Subjective: * Chief Complaints: * 6 wk follow up Care Plan Details* * Electronic signature of Elvin Beck DO on 03/26/2025 at 03:15 PM SUPERVISOR MAPPING Sign off status: Pending * Provider: Ryan Beck D.O. Date: 05/27/2023 Generated for Braeden sosa/Gertrude/Sergio on: 05/26/2024 03:15 PM SUPERVISOR MAPPING
--- NOTE | 2025-03-26 15:14 | XR_ITS ---
WS: [id number] Portable AP upright chest, 03/26/2025 Clinical Data: Weakness Comparison: Two-view chest, 08/26/2019 Findings: No nodules, masses or effusions are seen. The heart is normal. The pulmonary vascularity is not increased. No pneumonia or pneumothorax is seen. The diaphragms are flattened. The aortic arch and descending thoracic aorta show tortuosity. Monitor leads are on the chest wall. XR/XR chest 1V portable [id number] Impression: Atherosclerosis and hyperinflation
--- OUTSIDE RECORDS SUMMARY | 2025-03-26 15:15 | XMS_ITS | Patient Health Record ---
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 Name Role Phone Elvin Beck Primary Care Provider UnavailElvin Thompson Unavailable [phone] Joanne Boston Unavailable [phone] Allergies Allergen (clinical drug ingredient) Drug/Non Drug Allergy documented on EMR Reaction Allergy Type Onset Date Status Latex Latex Unknown Allergy Active Non-steroidal anti-inflammatory agent (FN) NSAIDs Unknown Drug Allergy Active Results Component Value Reference Range Flag Notes zzzUrine Drug Screen (confir mation by instrument) - [id number] Reviewed date:04/30/2024 04:50:52 PM Interpretation: Performing Lab: Notes/Report: zzzUrine Drug Screen (confir mation by instrument) - [id number] Reviewed date:07/02/2024 12:31:21 PM Interpretation: Performing Lab: Notes/Report: Urine Drug Screen (cup read) - [id number] Reviewed date:08/29/2024 04:13:17 PM Interpretation: Performing Lab: Notes/Report: OPI + Urine Drug Screen (cup read) - [id number] Reviewed date:11/06/2024 12:40:49 PM Interpretation: Performing Lab: Notes/Report: OPI + OXY + Urine Confirmation Panel (in strument) - [id number] Reviewed date:11/12/2024 01:58:11 PM Interpretation: Performing Lab: Notes/Report: 6-Acetylmorphine 0 <6 ng/mL N This bisi t was developed and its performance characteristics determined by [facility]. It has not been cleared or approved by the U.S. Food and Drug Administration. 7-Aminoclonazepam 0 <60 ng/mL N This te st was developed and its performance characteristics determined by [facility]. It has not been cleared or approved by the U.S. Food and Drug Administration. Alprazolam 0 <60 ng/mL N This test was developed and its performance characteristics determined by [facility]. It has not been cleared or approved by the U.S. Food and Drug Administration. Amphetamine 0 <75 ng/mL N This test was developed and its performance characteristics determined by [facility]. It has not been cleared or approved by the U.S. Food and Drug Administration. aOH-Alprazolam 0 <60 ng/mL N This test was developed and its performance characteristics determined by [facility]. It has not been cleared or approved by the U.S. Food and Drug Administration. Buprenorphine 0.0 <7.5 ng/mL N This test w as developed and its performance characteristics determined by [facility]. It has not been cleared or approved by the U.S. Food and Drug Administration. Norbuprenorphine 0.0 <37.5 ng/mL N This te st was developed and its performance characteristics determined by [facility]. It has not been cleared or approved by the U.S. Food and Drug Administration. Carisoprodol 0 <75 ng/mL N This test wa s developed and its performance characteristics determined by [facility]. It has not been cleared or approved by the U.S. Food and Drug Administration. Codeine 0 <75 ng/mL N This test was developed and its performance characteristics determined by [facility]. It has not been cleared or approved by the U.S. Food and Drug Administration. EDDP 0 <75 ng/mL N This test was developed and its performance characteristics determined by [facility]. It has not been cleared or approved by the U.S. Food and Drug Administration. Fentanyl 0 <6 ng/mL N This test was developed and its performance characteristics determined by [facility]. It has not been cleared or approved by the U.S. Food and Drug Administration. Hydrocodone >5000 <75 ng/mL > This test was developed and its performance characteristics determined by [facility]. It has not been cleared or approved by the U.S. Food and Drug Administration. Hydromorphone 2569 <75 ng/mL H This test w as developed and its performance characteristics determined by [facility]. It has not been cleared or approved by the U.S. Food and Drug Administration. Lorazepam 0 <60 ng/mL N This test was developed and its performance characteristics determined by [facility]. It has not been cleared or approved by the U.S. Food and Drug Administration. MDMA 0 <75 ng/mL N This test was developed and its performance characteristics determined by [facility]. It has not been cleared or approved by the U.S. Food and Drug Administration. Meperidine 0.0 <37.5 ng/mL N This test was developed and its performance characteristics determined by [facility]. It has not been cleared or approved by the U.S. Food and Drug Administration. Meprobamate 0 <75 ng/mL N This test was developed and its performance characteristics determined by [facility]. It has not been cleared or approved by the U.S. Food and Drug Administration. Methamphetamine 9 <75 ng/mL N This test was developed and its performance characteristics determined by [facility]. It has not been cleared or approved by the U.S. Food and Drug Administration. Methadone 0 <75 ng/mL N This test was developed and its performance characteristics determined by [facility]. It has not been cleared or approved by the U.S. Food and Drug Administration. Morphine 0 <75 ng/mL N This test was developed and its performance characteristics determined by [facility]. It has not been cleared or approved by the U.S. Food and Drug Administration. Nordiazepam 0 <60 ng/mL N This test was developed and its performance characteristics determined by [facility]. It has not been cleared or approved by the U.S. Food and Drug Administration. Norfentanyl 0 <6 ng/mL N This test was developed and its performance characteristics determined by [facility]. It has not been cleared or approved by the U.S. Food and Drug Administration. Normeperidine 0.0 <37.5 ng/mL N This test was developed and its performance characteristics determined by [facility]. It has not been cleared or approved by the U.S. Food and Drug Administration. O-desmethyltramadol 0 <75 ng/mL N This test was developed and its performance characteristics determined by [facility]. It has not been cleared or approved by the U.S. Food and Drug Administration. Oxazepam 0 <60 ng/mL N This test was developed and its performance characteristics determined by [facility]. It has not been cleared or approved by the U.S. Food and Drug Administration. Oxycodone 0.0 <37.5 ng/mL N This test was developed and its performance characteristics determined by [facility]. It has not been cleared or approved by the U.S. Food and Drug Administration. Oxymorphone 0 <75 ng/mL N This test was developed and its performance characteristics determined by [facility]. It has not been cleared or approved by the U.S. Food and Drug Administration. Phencyclidine 0.0 <7.5 ng/mL N This test w as developed and its performance characteristics determined by [facility]. It has not been cleared or approved by the U.S. Food and Drug Administration. Tapentadol 0.7 <37.5 ng/mL N This test was developed and its performance characteristics determined by [facility]. It has not been cleared or approved by the U.S. Food and Drug Administration. Temazepam 0 <60 ng/mL N This test was developed and its performance characteristics determined by [facility]. It has not been cleared or approved by the U.S. Food and Drug Administration. Tramadol 0 <75 ng/mL N This test was developed and its performance characteristics determined by [facility]. It has not been cleared or approved by the U.S. Food and Drug Administration. Norhydrocodone >5000 <75 ng/mL > This test was developed and its performance characteristics determined by [facility]. It has not been cleared or approved by the U.S. Food and Drug Administration. Noroxycodone 0 <38 ng/mL N This test wa s developed and its performance characteristics determined by [facility]. It has not been cleared or approved by the U.S. Food and Drug Administration. Pregabalin 40 <225 ng/mL N This test was developed and its performance characteristics determined by [facility]. It has not been cleared or approved by the U.S. Food and Drug Administration. Gabapentin 2 <225 ng/mL N This test was developed and its performance characteristics determined by [facility]. It has not been cleared or approved by the U.S. Food and Drug Administration. Benzoylecgonine 0.0 <37.5 ng/mL N This bisi t was developed and its performance characteristics determined by [facility]. It has not been cleared or approved by the U.S. Food and Drug Administration. 4-Hydroxy Xylazine 0 <25 ng/mL N This t est was developed and its performance characteristics determined by [facility]. It has not been cleared or approved by the U.S. Food and Drug Administration. Tox Results Reviewed date:11/12/2024 02:10:56 PM Interpretation: Performing Lab: Notes/Report: Tox Results Reviewed date:03/06/2025 10:58:36 AM Interpretation: Performing Lab: Notes/Report: Urine Confirmation Panel (in strument) - [id number] Reviewed date:03/06/2025 10:25:48 AM Interpretation: Performing Lab: Notes/Report: 6-Acetylmorphine 0 <6 ng/mL N This bisi t was developed and its performance characteristics determined by [facility]. It has not been cleared or approved by the U.S. Food and Drug Administration. 7-Aminoclonazepam 0 <60 ng/mL N This te st was developed and its performance characteristics determined by [facility]. It has not been cleared or approved by the U.S. Food and Drug Administration. Alprazolam 0 <60 ng/mL N This test was developed and its performance characteristics determined by [facility]. It has not been cleared or approved by the U.S. Food and Drug Administration. Amphetamine 0 <75 ng/mL N This test was developed and its performance characteristics determined by [facility]. It has not been cleared or approved by the U.S. Food and Drug Administration. aOH-Alprazolam 0 <60 ng/mL N This test was developed and its performance characteristics determined by [facility]. It has not been cleared or approved by the U.S. Food and Drug Administration. Buprenorphine 0.0 <7.5 ng/mL N This test w as developed and its performance characteristics determined by [facility]. It has not been cleared or approved by the U.S. Food and Drug Administration. Norbuprenorphine 0.0 <37.5 ng/mL N This te st was developed and its performance characteristics determined by [facility]. It has not been cleared or approved by the U.S. Food and Drug Administration. Carisoprodol 0 <75 ng/mL N This test wa s developed and its performance characteristics determined by [facility]. It has not been cleared or approved by the U.S. Food and Drug Administration. Codeine 0 <75 ng/mL N This test was developed and its performance characteristics determined by [facility]. It has not been cleared or approved by the U.S. Food and Drug Administration. EDDP 0 <75 ng/mL N This test was developed and its performance characteristics determined by [facility]. It has not been cleared or approved by the U.S. Food and Drug Administration. Fentanyl 0 <6 ng/mL N This test was developed and its performance characteristics determined by [facility]. It has not been cleared or approved by the U.S. Food and Drug Administration. Hydrocodone >5000 <75 ng/mL > This test was developed and its performance characteristics determined by [facility]. It has not been cleared or approved by the U.S. Food and Drug Administration. Hydromorphone 1720 <75 ng/mL H This test w as developed and its performance characteristics determined by [facility]. It has not been cleared or approved by the U.S. Food and Drug Administration. Lorazepam 0 <60 ng/mL N This test was developed and its performance characteristics determined by [facility]. It has not been cleared or approved by the U.S. Food and Drug Administration. MDMA 0 <75 ng/mL N This test was developed and its performance characteristics determined by [facility]. It has not been cleared or approved by the U.S. Food and Drug Administration. Meperidine 0.0 <37.5 ng/mL N This test was developed and its performance characteristics determined by [facility]. It has not been cleared or approved by the U.S. Food and Drug Administration. Meprobamate 0 <75 ng/mL N This test was developed and its performance characteristics determined by [facility]. It has not been cleared or approved by the U.S. Food and Drug Administration. Methamphetamine 0 <75 ng/mL N This test was developed and its performance characteristics determined by [facility]. It has not been cleared or approved by the U.S. Food and Drug Administration. Methadone 0 <75 ng/mL N This test was developed and its performance characteristics determined by [facility]. It has not been cleared or approved by the U.S. Food and Drug Administration. Morphine 0 <75 ng/mL N This test was developed and its performance characteristics determined by [facility]. It has not been cleared or approved by the U.S. Food and Drug Administration. Nordiazepam 0 <60 ng/mL N This test was developed and its performance characteristics determined by [facility]. It has not been cleared or approved by the U.S. Food and Drug Administration. Norfentanyl 2 <6 ng/mL N This test was developed and its performance characteristics determined by [facility]. It has not been cleared or approved by the U.S. Food and Drug Administration. Normeperidine 0.0 <37.5 ng/mL N This test was developed and its performance characteristics determined by [facility]. It has not been cleared or approved by the U.S. Food and Drug Administration. O-desmethyltramadol 5 <75 ng/mL N This test was developed and its performance characteristics determined by [facility]. It has not been cleared or approved by the U.S. Food and Drug Administration. Oxazepam 0 <60 ng/mL N This test was developed and its performance characteristics determined by [facility]. It has not been cleared or approved by the U.S. Food and Drug Administration. Oxycodone 0.0 <37.5 ng/mL N This test was developed and its performance characteristics determined by [facility]. It has not been cleared or approved by the U.S. Food and Drug Administration. Oxymorphone 0 <75 ng/mL N This test was developed and its performance characteristics determined by [facility]. It has not been cleared or approved by the U.S. Food and Drug Administration. Phencyclidine 0.0 <7.5 ng/mL N This test w as developed and its performance characteristics determined by [facility]. It has not been cleared or approved by the U.S. Food and Drug Administration. Tapentadol 0.0 <37.5 ng/mL N This test was developed and its performance characteristics determined by [facility]. It has not been cleared or approved by the U.S. Food and Drug Administration. Temazepam 0 <60 ng/mL N This test was developed and its performance characteristics determined by [facility]. It has not been cleared or approved by the U.S. Food and Drug Administration. Tramadol 0 <75 ng/mL N This test was developed and its performance characteristics determined by [facility]. It has not been cleared or approved by the U.S. Food and Drug Administration. Norhydrocodone >5000 <75 ng/mL > This test was developed and its performance characteristics determined by [facility]. It has not been cleared or approved by the U.S. Food and Drug Administration. Noroxycodone 0 <38 ng/mL N This test wa s developed and its performance characteristics determined by [facility]. It has not been cleared or approved by the U.S. Food and Drug Administration. Pregabalin >60106 <225 ng/mL > This test was developed and its performance characteristics determined by [facility]. It has not been cleared or approved by the U.S. Food and Drug Administration. Gabapentin 0 <225 ng/mL N This test was developed and its performance characteristics determined by [facility]. It has not been cleared or approved by the U.S. Food and Drug Administration. Benzoylecgonine 0.0 <37.5 ng/mL N This bisi t was developed and its performance characteristics determined by [facility]. It has not been cleared or approved by the U.S. Food and Drug Administration. 4-Hydroxy Xylazine 0 <25 ng/mL N This t est was developed and its performance characteristics determined by [facility]. It has not been cleared or approved by the U.S. Food and Drug Administration. Urine Drug Screen (cup read) - [id number] Reviewed date:02/26/2025 02:19:36 PM Interpretation: Performing Lab: Notes/Report: OPI + OXY + Urine Drug Screen (cup read) - [id number] Reviewed date:01/02/2025 11:43:05 AM Interpretation: Performing Lab: Notes/Report: OPI + OXY + Reason For Referral No Information Medications Medication SIG (Take, Route, Frequency, Duration) Notes Start Date End Date Status Lyrica 25 MG Capsule 1 capsule Orally three times a day Active HYDROcodone-Acetamino phen 10-325 MG Tablet 1 tablet Orally every 6 hrs; Duration: 30 days As needed Do not exceed 4 per day Fill on 03-06-25 02/26/2025 04/05/2025 Active hydrOXYzine HCl 25 MG Tablet TAKE ONE TABLET BY MOUTH THREE TIMES DAILY NEEDED FOR ANXIETY Oral Active Symbicort 80-4.5 MCG/ACT Aerosol INHALE TWO PUFFS BY MOUTH EVERY MORNING AND IN THE EVENING Inhalation Active Mirtazapine 15 MG Tablet TAKE ONE TABLET BY MOUTH EVERY EVENING Oral Active Ventolin HFA 108 (90 Base) MCG/ACT Aerosol Solution INHALE 1 PUFF BY MOUTH EVERY MORNING, AT NOON, IN THE EVENING AND BEFORE BEDTIME. Inhalation Active HYDROcodone-Acetamino phen 10-325 MG Tablet 1 tablet Orally every 6 hrs; Duration: 30 days As needed Do not exceed 4 per day Fill on 04-05-25 or few days early due to weekend fill date 02/26/2025 05/05/2025 Active Social History Social History Additional Details [...] every day smoker, Working currently? - No Problems Problem Type SNOMED Code ICD Code Onset Dates Problem Status W/U Status Risk Notes Problem Chronic pain syndrome (710503176) Chronic pain syndrome (G89.4) 11/09/19 Active confirmed Problem Solitary sacroiliitis (958306655) Sacroiliitis, not elsewhere classified (M46.1) 11/09/19 Active confirmed Problem Cervical spondylosis without myelopathy (271275226) Other spondylosis with radiculopathy, cervical region (M47.22) 11/09/19 Active confirmed Problem Lumbosacral spondylosis without myelopathy (32510814) Other spondylosis with radiculopathy, lumbosacral region (M47.27) 11/09/19 Active confirmed Problem Degeneration of cervical intervertebral disc (88460880) Other cervical disc degeneration, unspecified cervical region (M50.30) 11/09/19 Active confirmed Problem Post-laminectomy syndrome (07290641) Postlaminectomy syndrome, not elsewhere classified (M96.1) 11/09/19 Active confirmed Problem Abnormal gait (84376593) Unspecified abnormalities of gait and mobility (R26.9) 11/09/19 Active confirmed Problem Lumbosacral spondylosis with radiculopathy (065425880) Lumbosacral spondylosis with radiculopathy (M47.27) Active confirmed Problem Cervical disc disorder (481592870) DDD (degenerative disc disease), cervical (M50.30) Active confirmed Problem Cervical spondylosis without myelopathy (082625198) Cervical spondylosis with radiculopathy (M47.22) Active confirmed Problem Inflammation of left sacroiliac joint (8831843540) Inflammation of left sacroiliac joint (M46.1) Active confirmed Problem Lumbar post-laminectomy syndrome (197348981) Lumbar post-laminectomy syndrome (M96.1) Active confirmed Problem Abnormal gait (16834514) Abnormality of gait and mobility (R26.9) Active confirmed Vital Signs Height-cm 175.26 cm 02/26/2025 Weight-kg 51.71 kg 02/26/2025 Height 69.00 in 02/26/2025 Weight 114 lbs 02/26/2025 BMI 16.83 kg/m2 02/26/2025 Encounters Encounter Location Date Provider Diagnosis [facility] [place] [address] [place] [address] 02/26/2025 Elvin Beck Chronic pain syndrom e G89.4 ; DDD (degenerative disc disease), cervical M50.30 ; Cervical spondylosis with radiculopathy M47.22 ; Lumbosacral spondylosis with radiculopathy M47.27 ; Inflammation of left sacroiliac joint M46.1 ; Lumbar post-laminectomy syndrome M96.1 ; Abnormality of gait and mobility R26.9 and Admission for long-term opiate analgesic use Z79.891 [facility] [place] [address] [place] [address] 01/02/2025 Joanne Boston Chronic pain syndrom e G89.4 ; Other cervical disc degeneration, unspecified cervical region M50.30 ; Other spondylosis with radiculopathy, cervical region M47.22 ; Other spondylosis with radiculopathy, lumbosacral region M47.27 ; Sacroiliitis, not elsewhere classified M46.1 ; Postlaminectomy syndrome, not elsewhere classified M96.1 ; Unspecified abnormalities of gait and mobility R26.9 ; Tobacco use Z72.0 and longterm (current) use of opiate analgesic Z79.891 [facility] [address] [address] 11/06/2024 Elvin Beck Chronic pain syndrom e G89.4 ; DDD (degenerative disc disease), cervical M50.30 ; Cervical spondylosis with radiculopathy M47.22 ; Lumbosacral spondylosis with radiculopathy M47.27 ; Inflammation of left sacroiliac joint M46.1 ; Lumbar post-laminectomy syndrome M96.1 ; Abnormality of gait and mobility R26.9 and Admission for long-term opiate analgesic use Z79.891 [facility] [address] [address] 08/29/2024 Joanne Boston Chronic pain syndrom e G89.4 ; Other cervical disc degeneration, unspecified cervical region M50.30 ; Other spondylosis with radiculopathy, cervical region M47.22 ; Other spondylosis with radiculopathy, lumbosacral region M47.27 ; Sacroiliitis, not elsewhere classified M46.1 ; Postlaminectomy syndrome, not elsewhere classified M96.1 ; Unspecified abnormalities of gait and mobility R26.9 ; Tobacco use Z72.0 and longterm (current) use of opiate analgesic Z79.891 [facility] [address] [address] 06/27/2024 Joanne Boston Chronic pain syndrom e G89.4 ; Other cervical disc degeneration, unspecified cervical region M50.30 ; Other spondylosis with radiculopathy, cervical region M47.22 ; Other spondylosis with radiculopathy, lumbosacral region M47.27 ; Sacroiliitis, not elsewhere classified M46.1 ; Postlaminectomy syndrome, not elsewhere classified M96.1 ; Unspecified abnormalities of gait and mobility R26.9 and buttermaker (current) use of opiate analgesic Z79.891 [facility] [address] [address] 04/24/2024 Elvin Beck Chronic pain syndrom e G89.4 ; DDD (degenerative disc disease), cervical M50.30 ; Cervical spondylosis with radiculopathy M47.22 ; Lumbosacral spondylosis with radiculopathy M47.27 ; Inflammation of left sacroiliac joint M46.1 ; Lumbar post-laminectomy syndrome M96.1 ; Abnormality of gait and mobility R26.9 and Admission for long-term opiate analgesic use Z79.891 [facility] [place] [address] [place] [phone] 03/27/2024 Elvin Beck [facility] [place] [address] [place] [address] 01/02/2025 Elvin Beck Lumbosacral spondylosis with radiculopathy M47.27 [facility] Management [place] [address] [place] [address] 08/29/2024 Elvin Beck Lumbosacral spondylosis with radiculopathy M47.27 [facility] [address] [place] [address] 06/27/2024 Elvin Beck [facility] [place] [address] [place] [address] 04/15/2024 Elvin Beck [facility] [place] [address] [place] [address] 04/15/2024 Elvin Beck Assessments Encounter Date Diagnosis (ICD Code) Assessment Notes Treatment Notes Treatment Clinical Notes Section Notes 08/29/2024 Lumbosacral spondylosis with radiculopathy (ICD-10 - M47.27) 04/24/2024 Chronic pain syndrome (ICD-10 - G89.4) I had a nice visit with the patient today regarding his chronic pain issues. He is pleased with the results of his surgery and he is getting around a bit better but is having some left sided pain in a little bit different distribution than prior. He is waiting to follow up with Dr. Chavis to discuss this further. He is off of the oxycodone now and is back on his normal hydrocodone so we will provide prescriptions for the next couple of months and see him back at that point. 04/24/2024 DDD (degenerative disc disease), cervical (ICD-10 - M50.30) 06/27/2024 Chronic pain syndrome (ICD-10 - G89.4) I had a nice discussion with the patient today regarding his chronic pain complaints. He states he continues to slowly improve after his lower back surgery. He apparently is having some heart issues and they are going to be doing a heart cath soon to see if he needs stent placements. He will keep us updated on this. He feels he is doing reasonably well on his current medication regimen so he will continue that at present level. States his neck pain is relatively stable at the moment and has some caused him much problems lately. He will return to clinic in 2 months to monitor for treatment effectiveness and compliance. RECOMMEND URINE TESTING TODAY Urine drug screening will be performed today to monitor compliance with opioid therapy or to serve as a baseline screen for a patient who may be a candidate for opioid therapy in the future, pending UDS results. We will monitor with in-office testing (rapid testing) today and review the results prior to dispensing prescription. All positive results will be sent for quantitative analysis to ensure accuracy and quantify amounts. Any expected positive results that return negative will also be sent for quantitative analysis. Any questionable read or any medication we cannot test for in the office confidently will be sent for quantitative analysis, as well. Patient has been made aware of this policy and agrees to abide by our urine testing policy. The patient continues with chronic pain requiring treatment to help restore function and improve quality of life. Risks of opioid therapy as well as interaction of opioids with alcohol, illicit drugs, muscle relaxers, and other sedative medications are reviewed briefly with patient again today. The patient has trialed all other reasonable treatment options and uses the medication to alleviate pain in order to remain active and rest with less pain. No clinically relevant medication side effects are noted. Last UDS and [employer] reviewed today. Patient is advised that best long-term goals include increased activity, core strengthening, proper weight management, coping strategies, avoidance of painful triggers, and targeted interventional therapy. We will see the patient for routine follow up in accordance with all clinic policies. We did remind patient today of current guidelines to decrease opioid when possible. We will continue to stress nonopioid treatment. 06/27/2024 Other cervical disc degeneration, unspecified cervical region (ICD-10 - M50.30) 08/29/2024 Chronic pain syndrome (ICD-10 - G89.4) I had a nice discussion with the patient today regarding his chronic pain complaints. He continues to feel he is improving after his lower back surgery. He does report that he is following with Dr. Chavis regarding his neck now and will keep us updated on that. He is doing well on his current medication regimen so we will continue that at present level. He did have an accident recently and caused a laceration to his hand. He did not go get this looked at but I did advise him to do so. He will continue his medication at present level and return to clinic in 2 months to monitor for treatment effectiveness and compliance. The patient continues with chronic pain requiring treatment to help restore function and improve quality of life. Risks of opioid therapy as well as interaction of opioids with alcohol, illicit drugs, muscle relaxers, and other sedative medications are reviewed briefly with patient again today. The patient has trialed all other reasonable treatment options and uses the medication to alleviate pain in order to remain active and rest with less pain. No clinically relevant medication side effects are noted. Last UDS and [employer] reviewed today. Patient is advised that best long-term goals include increased activity, core strengthening, proper weight management, coping strategies, avoidance of painful triggers, and targeted interventional therapy. We will see the patient for routine follow up in accordance with all clinic policies. We did remind patient today of current guidelines to decrease opioid when possible. We will continue to stress nonopioid treatment. URINE TESTING TODAY; POINT OF SERVICE Urine drug screening will be performed today to monitor compliance with opioid therapy or to serve as a baseline screen for a patient who may be a candidate for opioid therapy in the future, pending UDS results. We will monitor with in-office testing (rapid testing) today and review the results prior to dispensing prescription, as well. Patient has been made aware of this policy. Refill HYDROcodone-A cetaminophen Tablet, 10-325 MG, 1 tablet, Orally, every 6 hrs, As needed Do not exceed 4 per day, 30 days, 120 Tablet, Start Date: 09/06/2024, Stop Date: 10/06/2024, Refills 0, Notes to Pharmacist: Fill on 09/06/24 due to weekend closure Refill HYDROcodone-A cetaminophen Tablet, 10-325 MG, 1 tablet, Orally, every 6 hrs, As needed Do not exceed 4 per day, 30 days, 120 Tablet, Start Date: 10/08/2024, Stop Date: 11/07/2024, Refills 0, Notes to Pharmacist: Fill on 10/08/24 08/29/2024 Other cervical disc degeneration, unspecified cervical region (ICD-10 - M50.30) 11/06/2024 Chronic pain syndrome (ICD-10 - G89.4) I had a nice visit with the patient and his today regarding his chronic pain issues. He had his cervical imaging completed at [facility] about 1.5 months ago, but he has not seen Dr. Chavis for a follow-up yet. At this point, he seems to be maintaining the medications well; he denies any side effects or complications, so we will continue those unchanged. We will see him back in about 2 months and proceed accordingly. 01/02/2025 Chronic pain syndrome (ICD-10 - G89.4) I had a nice discussion with the patient today regarding his chronic pain complaints. He continues with neck pain and states that Dr. Chavis told him he will need a neck surgery but he is going to try to hold off a little longer on this. He is coming up on a year after his lumbar spine surgery. He states he continues to have some pain in his lower back as well as pain and weakness down his lower extremities. He may be interested at some point in some interventional procedures but is a little reluctant to proceed. In the meantime while he thinks about this we are and get his most recent imaging of his neck and lower back from [facility].. The patient is going to also work on trying to get these records. I did discuss lifestyle modifications with him as well as a bowel regimen. He denies any changes in his health since we last seen him or any untoward side effects of the medication. He will continue his medication at present level and return to clinic in 2 months to monitor for treatment effectiveness and compliance. 01/02/2025 Lumbosacral spondylosis with radiculopathy (ICD-10 - M47.27) 02/26/2025 Chronic pain syndrome (ICD-10 - G89.4) I had a nice visit with the patient today regarding his chronic pain issues. Overall, he seems to be doing all right. He has an EMG/nerve conduction study in March that Dr. Chavis ordered. We look forward to reviewing the results. He plans to follow up with Dr. Chavis as well. We will continue his current medication regimen unchanged. We will follow up in a couple of months and proceed accordingly. 02/26/2025 DDD (degenerative disc disease), cervical (ICD-10 - M50.30) 01/02/2025 Other cervical disc degeneration, unspecified cervical region (ICD-10 - M50.30) 11/06/2024 DDD (degenerative disc disease), cervical (ICD-10 - M50.30) 08/29/2024 Other spondylosis with radiculopathy, cervical region (ICD-10 - M47.22) 06/27/2024 Other spondylosis with radiculopathy, cervical region (ICD-10 - M47.22) 04/24/2024 Cervical spondylosis with radiculopathy (ICD-10 - M47.22) 06/27/2024 Other spondylosis with radiculopathy, lumbosacral region (ICD-10 - M47.27) 08/29/2024 Other spondylosis with radiculopathy, lumbosacral region (ICD-10 - M47.27) 11/06/2024 Cervical spondylosis with radiculopathy (ICD-10 - M47.22) 02/26/2025 Cervical spondylosis with radiculopathy (ICD-10 - M47.22) 01/02/2025 Other spondylosis with radiculopathy, cervical region (ICD-10 - M47.22) 04/24/2024 Lumbosacral spondylosis with radiculopathy (ICD-10 - M47.27) 01/02/2025 Other spondylosis with radiculopathy, lumbosacral region (ICD-10 - M47.27) 02/26/2025 Lumbosacral spondylosis with radiculopathy (ICD-10 - M47.27) 11/06/2024 Lumbosacral spondylosis with radiculopathy (ICD-10 - M47.27) 08/29/2024 Sacroiliitis, not elsewhere classified (ICD-10 - M46.1) 06/27/2024 Sacroiliitis, not elsewhere classified (ICD-10 - M46.1) 04/24/2024 Inflammation of left sacroiliac joint (ICD-10 - M46.1) 04/24/2024 Lumbar post-laminectomy syndrome (ICD-10 - M96.1) 06/27/2024 Postlaminectomy syndrome, not elsewhere classified (ICD-10 - M96.1) 01/02/2025 Sacroiliitis, not elsewhere classified (ICD-10 - M46.1) 11/06/2024 Inflammation of left sacroiliac joint (ICD-10 - M46.1) 08/29/2024 Postlaminectomy syndrome, not elsewhere classified (ICD-10 - M96.1) 02/26/2025 Inflammation of left sacroiliac joint (ICD-10 - M46.1) 02/26/2025 Lumbar post-laminectomy syndrome (ICD-10 - M96.1) 08/29/2024 Unspecified abnormalities of gait and mobility (ICD-10 - R26.9) 11/06/2024 Lumbar post-laminectomy syndrome (ICD-10 - M96.1) 01/02/2025 Postlaminectomy syndrome, not elsewhere classified (ICD-10 - M96.1) 06/27/2024 Unspecified abnormalities of gait and mobility (ICD-10 - R26.9) 04/24/2024 Abnormality of gait and mobility (ICD-10 - R26.9) 04/24/2024 Admission for long-term opiate analgesic use (ICD-10 - Z79.891) 06/27/2024 longterm (current) use of opiate analgesic (ICD-10 - Z79.891) 01/02/2025 Unspecified abnormalities of gait and mobility (ICD-10 - R26.9) 11/06/2024 Abnormality of gait and mobility (ICD-10 - R26.9) 08/29/2024 Tobacco use (ICD-10 - Z72.0) 02/26/2025 Abnormality of gait and mobility (ICD-10 - R26.9) 02/26/2025 Admission for long-term opiate analgesic use (ICD-10 - Z79.891) 08/29/2024 buttermaker (current) use of opiate analgesic (ICD-10 - Z79.891) 11/06/2024 Admission for long-term opiate analgesic use (ICD-10 - Z79.891) RECOMMEND URINE TESTING TODAY Urine drug screening will be performed today to monitor compliance with opioid therapy or to serve as a baseline screen for a patient who may be a candidate for opioid therapy in the future, pending UDS results. We will monitor with in-office testing (rapid testing) today and review the results prior to dispensing prescription. All positive results will be sent for quantitative analysis to ensure accuracy and quantify amounts. Any expected positive results that return negative will also be sent for quantitative analysis. Any questionable read or any medication we cannot test for in the office confidently will be sent for quantitative analysis, as well. Patient has been made aware of this policy and agrees to abide by our urine testing policy. 01/02/2025 Tobacco use (ICD-10 - Z72.0) 01/02/2025 buttermaker (current) use of opiate analgesic (ICD-10 - Z79.891) URINE TESTING TODAY; POINT OF SERVICE Urine drug screening will be performed today to monitor compliance with opioid therapy or to serve as a baseline screen for a patient who may be a candidate for opioid therapy in the future, pending UDS results. We will monitor with in-office testing (rapid testing) today and review the results prior to dispensing prescription, as well. Patient has been made aware of this policy. 04/24/2024 Other Kyler Klein, annabel scribing for Elvin Beck. Elvin Klein, personally performed the services described in this documentation , as scribed by Kyler Michelle, and it is both accurate and complete. 11/06/2024 Other Keiry Klein NCMA, am scribing for Dr. Elvin Beck. I, Dr. Elvin Beck, personally performed the services described in this documentation, as scribed by TIERRA Ramon, and it is both accurate and complete. 02/26/2025 Other Klarissa Klein am scribing for Dr. Elvin Beck. I, Dr. Elvin Beck, personally performed the services described in this documentation, as scribed by Klarissa Fontenot, and it is both accurate and complete. Plan Of Treatment Next Appt Details Provider Name:Joanne Cisco echols, 05/01/2025 10:00:00 AM, [address] [place], [address], Insurance Providers Payer Name Payer Address Payer Phone Subscriber Number Group Number Insured Name Patient Relationship to Insured Coverage Start Date Coverage End Date [place] [address] [address] [place] [phone] [id number] Rudy De La Vega Self - patient is the insured 2 Medical (General) History Medical History History ICD Code Arthritis, Bronchitis, Constipation, Depressed, Hypertension, Migraine, Swelling, Surgical History Surgery Date(Month/Year) Cyst Removal Finger surgery right shoulder surgery- SLAP tear 2023
[2025-03-26 15:16] VITALS: BP 129/105; PULSE 93; RESP 16; TEMP 36.6; O2SAT 98; BMI 16.9
--- NOTE | 2025-03-26 15:20 | W.ED.WEAKNES ---
HPI - Weakness General: Chief complaint: Weakness Stated complaint: Weakness Time Seen by Provider: 03/26/25 15:11 History of Present Illness: 64-year-old male with a history of tobacco use in remission for 4 years, chronic pain syndrome on chronic opioid therapy, GERD, depression, hyperlipidemia, COPD, who presents to the emergency room with generalized weakness. He states he was treated for UTI with Bactrim recently but has just continued to get weaker and weaker. He says he has some hematuria but that is chronic. No dysuria at this time. He has a headache. He says he feels short of breath. No chest pain. No abdominal pain. No vomiting but he has been nauseous and had no appetite and has not eaten much. No altered mental status. No focal motor deficits. No known fevers. Related Data Home Medications ?Medication ?Instructions ?Recorded ?Confirmed promethazine 25 mg tablet 25 mg PO TID PRN Nausea 06/17/21 03/26/25 cyclobenzaprine 10 mg tablet 10 mg PO TID 01/03/22 03/26/25 tamsulosin 0.4 mg capsule (Flomax) 0.4 mg PO BEDTIME 01/03/22 03/26/25 hydroxyzine HCl 25 mg tablet 25 mg PO DAILY 02/28/23 03/26/25 albuterol sulfate 90 mcg/actuation 1 puff inhalation Q4H PRN 01/16/24 03/26/25 aerosol inhaler (Ventolin HFA) Shortness Of Breath budesonide-formoterol HFA 80 2 puff inhalation BID 01/16/24 03/26/25 mcg-4.5 mcg/actuation aerosol inhaler (Symbicort) ypgcasqrbq-vxcbqrostcwwk-gcjzklsh 1 tab PO Q8H 01/16/24 03/26/25 50 mg-325 mg-40 mg tablet hydrocodone 10 mg-acetaminophen 1 tab PO Q6H 03/26/25 03/26/25 325 mg tablet mirtazapine 15 mg tablet 15 mg PO QPM 03/26/25 03/26/25 pantoprazole 40 mg tablet,delayed 40 mg PO QAM 03/26/25 03/26/25 release silver sulfadiazine 1 % topical 1 applic topical BID 03/26/25 03/26/25 cream tizanidine 4 mg tablet See Rx Instructions .Route .COMPLEX 03/26/25 03/26/25 Previous Rx's ?Medication ?Instructions ?Recorded Corsett back brace #1 ea 11/14/24 pregabalin 25 mg capsule (Lyrica) 25 mg PO TID 30 days #90 caps 01/28/25 cefdinir 300 mg capsule 300 mg PO BID 7 days #14 caps 03/26/25 Allergies Allergy/AdvReac Type Severity Reaction Status Date / Time celecoxib (From Celebrex) Allergy Unknown Verified 03/25/25 11:21 latex Allergy rash Verified 03/25/25 11:21 pregabalin (From Lyrica) Allergy ALGY-Rash Verified 03/25/25 11:21 rofecoxib (From Vioxx) Allergy Unknown Verified 03/25/25 11:21 sertraline (From Zoloft) Allergy Unknown Verified 03/25/25 11:21 valdecoxib (From Bextra) Allergy Unknown Verified 03/25/25 11:21 NSAIDS (Non-Steroidal AdvReac RASH Verified 03/25/25 11:21 Anti-Inflamma Review of Systems Narrative: Constitutional symptoms: Negative except as documented in HPI. Skin symptoms: Negative except as documented in HPI. Eye symptoms: Negative except as documented in HPI. ENMT symptoms: Negative except as documented in HPI. Respiratory symptoms: Negative except as documented in HPI. Cardiovascular symptoms: Negative except as documented in HPI. Gastrointestinal symptoms: Negative except as documented in HPI. Genitourinary symptoms: Negative except as documented in HPI. Musculoskeletal symptoms: Negative except as documented in HPI. Neurologic symptoms: Negative except as documented in HPI. Psychiatric symptoms: Negative except as documented in HPI. Endocrine symptoms: Negative except as documented in HPI. PFSH ED PFSH: Medical History (Updated 03/26/25 @ 17:39 by Clary Groves MD) Cervical spondylosis with radiculopathy GERD (gastroesophageal reflux disease) Insomnia Cervical spondylosis Depression Dyslipidemia Polyarthralgia DDD (degenerative disc disease) Chronic pain syndrome Family History Other CAD (coronary artery disease) Cancer Stroke Social History Smoking and tobacco/nicotine status: former use of tobacco/nicotine Alcohol intake: never Substance/Drug Use: never Lives independently: Yes Household members: spouse Marital status: service: No Current occupational status: disabled Current gender identity: Male Physical Exam Narrative: EXAM NARRATIVE: General: Alert, no acute distress. Skin: Warm, dry. Head: Normocephalic, atraumatic. Neck: Supple, trachea midline. Eye: Extraocular movements are intact. Ears, nose, mouth and throat: mucosa moist. Cardiovascular: Regular, Normal peripheral perfusion. Respiratory: Lungs are clear to auscultation, respirations are non-labored, breath sounds are equal, Symmetrical chest wall expansion. Gastrointestinal: Soft, Nontender, Non distended Musculoskeletal: Normal ROM, no deformity. Neurological: Alert and oriented, No focal neurological deficit observed. Psychiatric: Cooperative, appropriate mood & affect. Course Vital Signs: Vital signs: Vital Signs Temperature 97.8 F 03/26/25 15:16 Pulse Rate 86 03/26/25 18:45 Respiratory Rate 16 03/26/25 18:05 Blood Pressure 118/68 03/26/25 18:45 Pulse Oximetry 98 03/26/25 18:45 Oxygen Delivery Me thod Room Air 03/26/25 18:05 MDM - Weakness Medical Decision Making Medical decision making: Patient's reason for coming to the emergency room: Generalized weakness Social determinants: Patient is disabled I reviewed the patient's medical record. 64-year-old male with a history of tobacco use in remission for 4 years, chronic pain syndrome on chronic opioid therapy, GERD, depression, hyperlipidemia, COPD. Patient was seen in neurology yesterday in clinic. Prior to that January by Dr. Chavis and orthopedics. I reviewed the patient's current home meds Reviewed prescription monitoring. Patient is on hydrocodone 10/325's 4 times a day. Alternate historians: No alternative history. Differential diagnosis for patient presenting with generalized weakness including but not limited to and based on the above HPI, review of systems and physical exam: Sepsis. Dehydration. Renal failure. Electrolyte abnormalities. Anemia. Congestive heart failure. Hypotension. Coronary syndrome. Hepatitis. Cirrhosis. Infections such as pneumonia, urinary tract infection, [place] illness, Cellulitis, Viral infections including influenza and Covid-19. Workup: labwork and lab/exam driven imaging ordered to evaluate, rule in and rule out above pathologies. Chest x-ray: Hyperinflation. No acute process. No infiltrate. No pneumothorax. This was reviewed and interpreted by myself the emergency room physician. I also reviewed the radiology report. EKG: time 1522. Rate 93. Normal sinus rhythm, No ST-T changes, no ectopy, left anterior fascicular block, This was reviewed and interpreted by myself the ER physician at 1526 Repeat EKG: Time 1710. Rate 83. Normal sinus rhythm, No ST-T changes, no ectopy, left anterior fascicular block, This was reviewed and interpreted by myself the ER physician at 1715. No changes from previous EKG. Lab Review: Laboratory results were reviewed and interpreted by myself the emergency room physician. No leukocytosis. No anemia. No renal failure. Patient does have some blood in a few whites in his urine still. I think he might have a partially treated urinary tract infection. Assessment of risk: Level of risk: Moderate Hospitalization considerations: No indications for hospitalization today. Reexamination: Patient remained stable. No increased work of breathing. No altered mental status. No focal motor deficits. Assessment and plan: Urinary tract infection Dehydration ? IV fluids and IV Rocephin in the emergency room. - Discharged home - Discussed plan with patient. Answered any questions. - Evaluation and treatment of this problem were appropriate in the emergency setting. Lab Data 03/26/25 15:35 03/26/25 15:35 Radiology Impressions Chest X-Ray 03/26/25 15:14 Impression: Atherosclerosis and hyperinflation Laboratory Results WBC 9.60 10^3/uL (3.29-11.43) 03/26/25 15:35 RBC 5.40 10^6/uL (3.85-5.65) 03/26/25 15:35 Hgb 16.90 g/dL (11.27-16.99) 03/26/25 15:35 Hct 49.5 % (37-53) 03/26/25 15:35 MCV 91.7 fl (82-101) 03/26/25 15:35 MCH 31.3 pg (27-33) 03/26/25 15:35 MCHC 34.1 g/dL (30-55) 03/26/25 15:35 RDW 12.4 % (12.1-15.1) 03/26/25 15:35 Plt Count 271 10^3/cmm (157-399) 03/26/25 15:35 MPV 8.6 fL (7.4-10.4) 03/26/25 15:35 Neut % (Auto) 78.4 % 03/26/25 15:35 Lymph % (Auto) 14.0 % 03/26/25 15:35 [place] % (Auto) 6.7 % 03/26/25 15:35 Eos % (Auto) 0.3 % 03/26/25 15:35 Baso % (Auto) 0.4 % 03/26/25 15:35 Neut # (Auto) 7.53 10^3/uL (1.8-7.7) 03/26/25 15:35 Lymph # (Auto) 1.3 10^3/uL (0.8-4.8) 03/26/25 15:35 [place] # (Auto) 0.6 10^3/uL (0.2-0.9) 03/26/25 15:35 Eos # (Auto) 0.0 10^3/uL (0.0-0.8) 03/26/25 15:35 Baso # (Auto) 0.0 10^3/uL (0.0-0.1) 03/26/25 15:35 Nucleated RBC % (auto) 0 % 03/26/25 15:35 Nucleated RBCs # 0.0 /100WBC 03/26/25 15:35 Sodium 141 mmol/L (136-145) 03/26/25 15:35 Potassium 3.8 mmol/L (3.5-5.1) 03/26/25 15:35 Chloride 104 mmol/L (98-107) 03/26/25 15:35 Carbon Dioxide 23 mmol/L (22-29) 03/26/25 15:35 Anion Gap 17.8 (5-19) 03/26/25 15:35 BUN 18 mg/dL (8-23) 03/26/25 15:35 Creatinine 0.8 mg/dL (0.7-1.2) 03/26/25 15:35 GFR Calculation 97.6 mL/min (90-130) 03/26/25 15:35 Glucose 97 mg/dL (65-115) 03/26/25 15:35 Calculated Osmolality 294 mOsm/kg (285-295) 03/26/25 15:35 Lactic Acid 2.0 mmol/L (0.5-2.2) 03/26/25 15:35 Calcium 9.2 mg/dL (8.5-10.5) 03/26/25 15:35 Total Bilirubin 0.8 mg/dL (0.15-1.2) 03/26/25 15:35 AST 19 U/L (0-40) 03/26/25 15:35 ALT 14 U/L (0-41) 03/26/25 15:35 Alkaline Phosphatase 102 U/L (40-130) 03/26/25 15:35 Troponin T Baseline 8 ng/L (0-15) 03/26/25 15:35 Troponin T 120 Minute 7.25 ng/L (0-15) 03/26/25 17:14 Delta Troponin T -0.75 ABS# (0-10) L 03/26/25 17:14 C-Reactive Protein 3.0 mg/L (0.0-4.9) 03/26/25 15:35 Total Protein 7.6 g/dL (6.6-8.7) 03/26/25 15:35 Albumin 4.8 g/dL (3.5-5.2) 03/26/25 15:35 Globulin 2.8 g/dL (1.3-4.6) 03/26/25 15:35 Procalcitonin 0.04 ng/mL (0-0.5) 03/26/25 15:35 Urine Color Dark yellow (Yellow) A 03/26/25 15:41 Urine Appearance Clear (CLEAR) 03/26/25 15:41 Urine pH 5.5 (5-7) 03/26/25 15:41 Ur Specific [place] 1.035 (1.005-1.030) H 03/26/25 15:41 Urine Protein 2+ (Negative) A 03/26/25 15:41 Urine Glucose (UA) Negative (Normal) 03/26/25 15: Urine Ketones 2+ (Negative) H 03/26/25 15:41 Urine Blood 3+ (Negative) A 03/26/25 15:41 Urine Nitrate Negative (Negative) 03/26/25 15:41 Urine Bilirubin Negative (Negative) 03/26/25 15: Urine Urobilinogen 1.0 mg/dL (Negative) 03/26/25 15:41 Ur Leukocyte Esterase Negative (Negative) 03/26/25 15:41 Urine RBC 21-50 /hpf (0-2) H 03/26/25 15:41 Urine WBC 0-5 /hpf (0-5) 03/26/25 15:41 Ur Squamous Epith Cells 0-5 /hpf (0-5) 03/26/25 15:41 Amorphous Sediment Not Reportable 03/26/25 15:41 Urine Bacteria None seen /hpf (NONE) 03/26/25 15:41 Hyaline Casts 3.30 /lpf 03/26/25 15:41 Influenza A (PCR) Negative (Negative) 03/26/25 15:41 Influenza Type B (PCR) Negative (Negative) 03/26/25 15:41 RSV (PCR) Negative (Negative) 03/26/25 15:41 SARS-CoV-2 (PCR) Negative (Negative) 03/26/25 15:41 All radiology interpretation(s) finalized by discharge Discharge Plan Discharge Patient Disposition: Home Clinical Impression: Generalized weakness, Hematuria, Dehydration Condition: Stable Prescriptions: New cefdinir 300 mg capsule 300 mg PO BID 7 Days Qty: 14 0RF No Action cyclobenzaprine 10 mg tablet 10 mg PO TID Patient Comments: 2 at bedtime hydroxyzine HCl 25 mg tablet 25 mg PO DAILY (DME) Corsett back brace See Rx Instructions .Route .MEDSUPPLY Qty: 1 0RF Rx Instructions: As directed tamsulosin [Flomax] 0.4 mg capsule 0.4 mg PO BEDTIME rsgbvhxbtb-dibrjgyecjjii-lxuk 50-325-40 mg tablet 1 tab PO Q8H albuterol sulfate [Ventolin HFA] 90 mcg/actuation HFA aerosol inhaler 1 puff inhalation Q4H PRN (Reason: Shortness Of Breath) budesonide-formoterol [Symbicort] 80-4.5 mcg/actuation HFA aerosol inhaler 2 puff inhalation BID pregabalin [Lyrica] 25 mg capsule 25 mg PO TID 30 Days Qty: 90 0RF promethazine 25 mg Tablet 25 mg PO TID PRN (Reason: Nausea) silver sulfadiazine 1 % cream 1 applic TOPICAL BID tizanidine 4 mg tablet See Rx Instructions .ROUTE .COMPLEX Rx Instructions: TAKE ONE TABLET BY MOUTH NEEDED IN THE MORNING AND TAKE ONE TABLET BY MOUTH NEEDED AT NOON AND TAKE ONE TABLET BY MOUTH NEEDED IN THE EVENING FOR MUSCLE SPASMS hydrocodone-acetaminophen 10-325 mg tablet 1 tab PO Q6H pantoprazole 40 mg tablet,delayed release (DR/EC) 40 mg PO QAM mirtazapine 15 mg tablet 15 mg PO QPM Discharge Orders: Discharge ED (Routine); Ordered 03/26/25 Ordered By: Clary Groves Referrals: Freda Mcclure [Primary Care Provider] Discharge Diet: Usual diet Discharge Activity: Increase activity as tolerated Patient Instructions: Dehydration (ED), Urinary Tract Infection in Older Adults (ED), Opioid Safety, Pain Management, Patient Portal & Walter Instructions Activity Restrictions/Additional Instructions: Thank you for choosing [facility] for your healthcare needs today. You have been screened and evaluated and felt safe for discharge. Health conditions do change or evolve sometimes and as such it is important that you follow up with your Primary Doctor to be re checked, 3-5 days is a general good time frame for follow up. You are always welcome to return to the ED for re assessment if your symptoms are worsening or you have new concerns Print Language: Indian Coding Level of Care Code ED Brush Loader And Handle Attacher for Pavel Stovall
--- NOTE | 2025-03-26 15:22 | ECG_ITS ---
[facility] Test Date: 2025-03-26 Pat Name: Rudy De La Vega Department: Room: Gender: Male Spares Scheduler: : 1960 Requested By: Clary Love Order Number: [id number] Yamileth MD: Omid Carter M.D. Measurements Intervals [place] Rate: 93 P: 85 MA: 149 QRS: -71 QRSD: 102 T: 85 QT: 333 QTc: 415 Interpretive Statements SINUS RHYTHM LEFT ANTERIOR FASCICULAR BLOCK [QRS AXIS <= -45, QR IN I, RS IN II] No previous ECG available for comparison Electronically Signed On 03-26-2025 23:51:04 ARMATURE STRAIGHTENER by Omid Carter M.D. [email or web address]
[2025-03-26 15:42] VITALS: BP 141/93; PULSE 91; RESP 16; O2SAT 97
[2025-03-26 15:49] LABS: Glucose Urine UA Negative (Normal); Nitrate Urine Negative (Negative)
[2025-03-26 15:50] LABS: Hematocrit 49.5 % (37-53); Hemoglobin 16.90 g/dL (11.27-16.99); Mean Corpuscular HGB Conc 34.1 g/dL (30-55); Mean Corpuscular Hemoglobin 31.3 pg (27-33); Mean Corpuscular Volume 91.7 fl (82-101); Nucleated Red Blood Cells % 0 %; Platelet Count 271 10^3/cmm (157-399); Red Blood Count 5.40 10^6/uL (3.85-5.65); White Blood Count 9.60 10^3/uL (3.29-11.43)
[2025-03-26 16:03] LABS: Specific Gravity, Urine 1.035 (1.005-1.030)
[2025-03-26 16:12] LABS: Troponin(5th) Baseline 8 ng/L (0-15)
[2025-03-26 16:15] LABS: Alanine Aminotransferase 14 U/L (0-41); Albumin Level 4.8 g/dL (3.5-5.2); Alkaline Phosphatase 102 U/L (40-130); Anion Gap 17.8 (5-19); Aspartate Amino Transferase 19 U/L (0-40); Blood Urea Nitrogen 18 mg/dL (8-23); Calcium 9.2 mg/dL (8.5-10.5); Carbon Dioxide 23 mmol/L (22-29); Chloride 104 mmol/L (98-107); Creatinine Clr Calc Pharmacy 69.7318; Globulin 2.8 g/dL (1.3-4.6); Glucose 97 mg/dL (65-115); Osmolality Calculated 294 mOsm/kg (285-295); Potassium 3.8 mmol/L (3.5-5.1); Sodium 141 mmol/L (136-145); Total Protein 7.6 g/dL (6.6-8.7)
[2025-03-26 16:16] LABS: Lactic Sepsis W/Reflex 2.0 mmol/L (0.5-2.2)
[2025-03-26 16:20] LABS: Procalcitonin 0.04 ng/mL (0-0.5)
[2025-03-26 16:23] LABS: Respiratory Syncytial Virus Ce NEGATIVE (Negative); SARS-CoV-2 PCR NEGATIVE (Negative)
[2025-03-26 16:30] VITALS: BP 137/87; PULSE 85; RESP 16; O2SAT 95
--- NOTE | 2025-03-26 17:10 | ECG_ITS ---
[facility] Date: 2025-03-26 Pat Name: Rudy De La Vega Department: Room: Gender: Male Global Marketing Intern: : 1960 Requested By: Clary Love Order Number: [id number] Yamileth MD: Omid Carter M.D. Measurements Intervals [place] Rate: 83 P: 86 MS: 156 QRS: -61 QRSD: 107 T: 87 QT: 344 QTc: 405 Interpretive Statements SINUS RHYTHM LEFT ANTERIOR FASCICULAR BLOCK [QRS AXIS <= -45, QR IN I, RS IN II] Compared to ECG 03/26/2025 15:22:13 No significant changes Electronically Signed On 03-26-2025 23:38:37 MANAGER CARDIAC by Omid Carter M.D. [email or web address]
[2025-03-26 17:17] VITALS: BP 126/84; PULSE 78; RESP 16; O2SAT 95
[2025-03-26 17:58] LABS: Troponin 5 2HR 7.25 ng/L (0-15)
[2025-03-26 18:01] LABS: Troponin 5 2HR Delta -0.75 ABS# (0-10)
[2025-03-26 18:05] VITALS: BP 108/66; PULSE 73; RESP 16; O2SAT 94
[2025-03-26 18:45] VITALS: BP 118/68; PULSE 86; O2SAT 98
== END 2025-03-26 18:46 | disposition home or self-care (01) ==
PROVIDERS: Emergency Provider Emergency Medicine
DX: R53.1 Weakness (principal); R31.9 Hematuria, unspecified; E86.0 Dehydration; Z11.52 Encounter for screening for COVID-19; Z87.891 Personal history of nicotine dependence; E78.5 Hyperlipidemia, unspecified; J44.9 Chronic obstructive pulmonary disease, unspecified
CPT/HCPCS: 36415; 71045; 80053; 81001; 83605; 84145; 84484; 85025; 86140; 87040; 87086; 87637; 93005; 99285; J7030

== ENCOUNTER → 2025-05-06 13:34 | Outpatient (BNVA) | payer MEDICARE, SELFPAY | PROVIDERS: Visit Provider Orthopaedic Surgery | DX: G56.22 Lesion of ulnar nerve, left upper limb (principal); G56.03 Carpal tunnel syndrome, bilateral upper limbs; M47.22 Other spondylosis with radiculopathy, cervical region | CPT/HCPCS: 99213 ==

== ENCOUNTER 2025-05-18 16:15 | Emergency (ER) | payer MEDICARE, SELFPAY ==
--- OUTSIDE RECORDS SUMMARY | 2024-03-27 03:00 | XMS_ITS ---
Author Organization [facility] Address [address] [place] [address] Support Name Relationship Address , Maryan De La Vega Emergency Contact [address] [place] [address] Rudy De La Vega Guarantor Unknown [phone] Care Team Providers Care Crystal Lapper Name Role Phone Elvin Beck Primary Care Provider UnavailJoanne Mendosa Unavailable [phone] Elvin Beck Unavailable [phone] REASON FOR VISIT 6 wk follow up Encounters Encounter Location Date Provider Diagnosis [facility] [place] [address] [place] [address] 03/27/2024 Elvin Beck Plan Of Treatment Next Appt Details Provider Name:Joanne echols, 07/03/2025 10:00:00 AM, [address] [place], [address], Progress Notes * Rudy DE LA VEGA WDOB:[birth year] (64 yo M)Acc No.[id number]:03/27/2024 Progress Notes Patient: Rudy Hernandez Provider: Ryan Beck D.O. :1960 A ge:63 Y S ex:Male Date:03/27/2024 Address:[address] [place], [place] [id number] Pcp:Elvin Beck Subjective: * Chief Complaints: * 6 wk follow up Care Plan Details* * Electronic signature of Elvin Beck DO on 05/18/2025 at 04:19 PM CHILD CARE GIVER Sign off status: Pending * Provider: Ryan Beck D.O. Date: 05/27/2023 Generated for Braeden sosa/Gertrude/Sergio on: 07/19/2024 04:19 PM CHILD CARE GIVER
--- OUTSIDE RECORDS SUMMARY | 2025-05-18 16:19 | XMS_ITS | Patient Health Record ---
Author Organization [facility] Address [address] [place] [address] Support Name Relationship Address , Maryan De La Vega Emergency Contact [phone] [id number] Rudy De La Vega Guarantor Unknown [phone] Care Team Providers Care Boatswain Mate Name Role Phone Elvin Beck Primary Care Provider UnavailJoanne Mendosa Unavailable [phone] Elvin Beck Unavailable [phone] Allergies Allergen (clinical drug ingredient) Drug/Non Drug Allergy documented on EMR Reaction Allergy Type Onset Date Status Latex Latex Unknown Allergy Active Non-steroidal anti-inflammatory agent (FN) NSAIDs Unknown Drug Allergy Active Results Component Value Reference Range Flag Notes Urine Drug Screen (cup read) - 77176 Reviewed date:11/06/2024 12:40:49 PM Interpretation: Performing Lab: Notes/Report: OPI + OXY + Urine Confirmation Panel (in strument) - [id number] Reviewed date:11/12/2024 01:58:11 PM Interpretation: Performing Lab: [...] Food and Drug Administration. Urine Drug Screen ([facility]) - 65490 Reviewed date:05/01/2025 12:58:35 PM Interpretation: Performing Lab: Notes/Report: BZO + OPI + OXY + zzzUrine Drug Screen (abby gardner by instrument) - 82736 Reviewed date:07/02/2024 12:31:21 PM Interpretation: Performing Lab: Notes/Report: Tox Results Reviewed date:11/12/2024 02:10:56 PM Interpretation: Performing Lab: Notes/Report: Tox Results Reviewed date:03/06/2025 10:58:36 AM Interpretation: Performing Lab: Notes/Report: Urine Drug Screen (cup read) - 37586 Reviewed date:08/29/2024 04:13:17 PM Interpretation: Performing Lab: Notes/Report: OPI + Urine Drug Screen (cup read) - 42158 Reviewed date:01/02/2025 11:43:05 AM Interpretation: Performing Lab: Notes/Report: OPI + OXY + Urine Drug Screen (cup read) - 81823 Reviewed date:02/26/2025 02:19:36 PM Interpretation: Performing Lab: Notes/Report: OPI + OXY + Urine Confirmation Panel (in strument) - [id number] Reviewed date:03/06/2025 10:25:48 AM Interpretation: Performing Lab: [...] the U.S. Food and Drug Administration. Pregabalin >27624 <225 ng/mL > This test was developed [...] by the U.S. Food and Drug Administration. Reason For Referral No Information Medications Medication SIG (Take, Route, Frequency, Duration) Notes Start Date End Date Status HYDROcodone-Acetamin ophen 10-325 MG Tablet 1 tablet Orally every 6 hrs; Duration: 30 days As needed Do not exceed 4 per day Fill on 05/02/2025 -closed on weekends 05/01/2025 06/01/2025 Active hydrOXYzine HCl 25 MG Tablet TAKE ONE TABLET BY MOUTH THREE TIMES DAILY NEEDED FOR ANXIETY Oral Active Lyrica 25 MG Capsule 1 capsule Orally three times a day Active Mirtazapine 15 MG Tablet TAKE ONE TABLET BY MOUTH EVERY EVENING Oral Active Symbicort 80-4.5 MCG/ACT Aerosol INHALE TWO PUFFS BY MOUTH EVERY MORNING AND IN THE EVENING Inhalation Active Ventolin HFA 108 (90 Base) MCG/ACT Aerosol Solution INHALE 1 PUFF BY MOUTH EVERY MORNING, AT NOON, IN THE EVENING AND BEFORE BEDTIME. Inhalation Active HYDROcodone-Acetamin ophen 10-325 MG Tablet 1 tablet Orally every 6 hrs; Duration: 30 days As needed Do not exceed 4 per day Fill on 06/03/2025 05/01/2025 07/03/2025 Active Social History Social History Additional Details [...] Status Risk Notes Problem Chronic pain syndrome (937180252) Chronic pain syndrome (G89.4) 11/09/19 Active confirmed Problem Solitary sacroiliitis (713304819) Sacroiliitis, not elsewhere classified (M46.1) 11/09/19 Active confirmed Problem Cervical spondylosis without myelopathy (632727696) Other spondylosis with radiculopathy, cervical region (M47.22) 11/09/19 Active confirmed Problem Lumbosacral spondylosis without myelopathy (39527148) Other spondylosis with radiculopathy, lumbosacral region (M47.27) 11/09/19 Active confirmed Problem Degeneration of cervical intervertebral disc (51627135) Other cervical disc degeneration, unspecified cervical region (M50.30) 11/09/19 Active confirmed Problem Post-laminectomy syndrome (01216536) Postlaminectomy syndrome, not elsewhere classified (M96.1) 11/09/19 Active confirmed Problem Abnormal gait (79269044) Unspecified abnormalities of gait and mobility (R26.9) 11/09/19 Active confirmed Problem Lumbosacral spondylosis with radiculopathy (726556806) Lumbosacral spondylosis with radiculopathy (M47.27) Active confirmed Problem Cervical disc disorder (534546104) DDD (degenerative disc disease), cervical (M50.30) Active confirmed Problem Cervical spondylosis without myelopathy (842651606) Cervical spondylosis with radiculopathy (M47.22) Active confirmed Problem Inflammation of left sacroiliac joint (9445309162) Inflammation of left sacroiliac joint (M46.1) Active confirmed Problem Lumbar post-laminectomy syndrome (618724273) Lumbar post-laminectomy syndrome (M96.1) Active confirmed Problem Abnormal gait (31186246) Abnormality of gait and mobility (R26.9) Active confirmed Vital Signs Height-cm 175.26 cm 02/26/2025 Weight-kg 54.43 kg 05/01/2025 Height 69.00 in 02/26/2025 Weight 120 lbs 05/01/2025 BMI 16.83 kg/m2 02/26/2025 Encounters Encounter Location Date Provider Diagnosis [facility] [address] [place] [address] 02/26/2025 Elvin Beck Chronic pain syndrom e G89.4 ; DDD (degenerative disc disease), cervical M50.30 ; Cervical spondylosis with radiculopathy M47.22 ; Lumbosacral spondylosis with radiculopathy M47.27 ; Inflammation of left sacroiliac joint M46.1 ; Lumbar post-laminectomy syndrome M96.1 ; Abnormality of gait and mobility R26.9 and Admission for long-term opiate analgesic use Z79.891 [facility] [address] [place] [address] 01/02/2025 Joanne Boston Chronic pain syndrom e G89.4 ; Other cervical disc degeneration, unspecified cervical region M50.30 ; Other spondylosis with radiculopathy, cervical region M47.22 ; Other spondylosis with radiculopathy, lumbosacral region M47.27 ; Sacroiliitis, not elsewhere classified M46.1 ; Postlaminectomy syndrome, not elsewhere classified M96.1 ; Unspecified abnormalities of gait and mobility R26.9 ; Tobacco use Z72.0 and custodial (current) use of opiate analgesic Z79.891 [facility] [address] [address] 11/06/2024 Elvin Beck Chronic pain syndrom e G89.4 ; DDD (degenerative disc disease), cervical M50.30 ; Cervical spondylosis with radiculopathy M47.22 ; Lumbosacral spondylosis with radiculopathy M47.27 ; Inflammation of left sacroiliac joint M46.1 ; Lumbar post-laminectomy syndrome M96.1 ; Abnormality of gait and mobility R26.9 and Admission for long-term opiate analgesic use Z79.891 [facility] [address] [address] 08/29/2024 Joanne Boston Chronic pain syndrom e G89.4 ; Other cervical disc degeneration, unspecified cervical region M50.30 ; Other spondylosis with radiculopathy, cervical region M47.22 ; Other spondylosis with radiculopathy, lumbosacral region M47.27 ; Sacroiliitis, not elsewhere classified M46.1 ; Postlaminectomy syndrome, not elsewhere classified M96.1 ; Unspecified abnormalities of gait and mobility R26.9 ; Tobacco use Z72.0 and terminal system operator (current) use of opiate analgesic Z79.891 [facility] [address] [address] 06/27/2024 Joanne Boston Chronic pain syndrom e G89.4 ; Other cervical disc degeneration, unspecified cervical region M50.30 ; Other spondylosis with radiculopathy, cervical region M47.22 ; Other spondylosis with radiculopathy, lumbosacral region M47.27 ; Sacroiliitis, not elsewhere classified M46.1 ; Postlaminectomy syndrome, not elsewhere classified M96.1 ; Unspecified abnormalities of gait and mobility R26.9 and custodial (current) use of opiate analgesic Z79.891 [facility] [address] [address] 05/01/2025 Joanne Boston Chronic pain syndrom e G89.4 ; Cervical spondylosis with radiculopathy M47.22 ; Lumbosacral spondylosis with radiculopathy M47.27 ; Inflammation of left sacroiliac joint M46.1 ; Admission for long-term opiate analgesic use Z79.891 ; DDD (degenerative disc disease), cervical M50.30 ; Lumbar post-laminectomy syndrome M96.1 and Abnormality of gait and mobility R26.9 [facility] [address] [address] 05/01/2025 Elvin Beck Lumbosacral spondylosis with radiculopathy M47.27 [facility] [address] [address] 01/02/2025 Elvin Beck Lumbosacral spondylosis with radiculopathy M47.27 [facility] [address] [address] 08/29/2024 Elvin Beck Lumbosacral spondylosis with radiculopathy M47.27 [facility] [address] [address] 06/27/2024 Elvin Kennethdaly Assessments Encounter Date Diagnosis (ICD Code) Assessment Notes Treatment Notes Treatment Clinical Notes Section Notes 08/29/2024 Lumbosacral spondylosis with radiculopathy (ICD-10 - M47.27) 11/06/2024 Chronic pain syndrome (ICD-10 - G89.4) I had a nice visit with the patient and his today regarding his chronic pain issues. He had his cervical imaging completed at [facility] about 1.5 months ago, but he has not seen Dr. Chavis for a follow-up yet. At this point, he seems to be maintaining the medications well; he denies any side effects or complications, so we will continue those unchanged. We will see him back in about 2 months and proceed accordingly. 05/01/2025 Cervical spondylosis with radiculopathy (ICD-10 - M47.22) 08/29/2024 Chronic pain syndrome (ICD-10 - G89.4) [...] effects are noted. Last UDS and [place] [employer] ACCOUNT MANAGER reviewed today. Patient is advised that best [...] been made aware of this policy. Refill HYDROcodone- Acetaminophe n Tablet, 10-325 MG, 1 tablet, Orally, every 6 hrs, As needed Do not exceed 4 per day, 30 days, 120 Tablet, Start Date: 09/06/2024, Stop Date: 10/06/2024, Refills 0, Notes to Pharmacist: Fill on 09/06/24 due to weekend closure Refill HYDROcodone- Acetaminophe n Tablet, 10-325 MG, 1 tablet, Orally, every 6 hrs, As needed Do not exceed 4 per day, 30 days, 120 Tablet, Start Date: 10/08/2024, Stop Date: 11/07/2024, Refills 0, Notes to Pharmacist: Fill on 10/08/24 08/29/2024 Other cervical disc degeneration, unspecified cervical region (ICD-10 - M50.30) 06/27/2024 Chronic pain syndrome [...] effects are noted. Last UDS and [place] [employer] ACCOUNT MANAGER reviewed today. Patient is advised that best [...] degeneration, unspecified cervical region (ICD-10 - M50.30) 02/26/2025 Chronic pain syndrome (ICD-10 - G89.4) [...] a couple of months and proceed accordingly. 01/02/2025 Lumbosacral spondylosis with radiculopathy (ICD-10 - M47.27) 01/02/2025 Chronic pain syndrome (ICD-10 - G89.4) [...] of his neck and lower back from [facility].. The patient is going to also [...] to monitor for treatment effectiveness and compliance. 05/01/2025 Lumbosacral spondylosis with radiculopathy (ICD-10 - M47.27) 05/01/2025 Chronic pain syndrome (ICD-10 - G89.4) I had a nice discussion with the patient today regarding his chronic pain complaints. He continues with neck and lower back pain and continues to follow with Dr. Chavis. He states he has a follow-up next week. He has apparently been battling a severe UTI and was in the hospital. He states he is been on 3 different antibiotics. He states he just finished his most recent antibiotic and is feeling better finally. He will follow-up next week for another UA. He denies any other changes since we last seen him or any untoward side effects of the medication. I did discuss lifestyle modifications as well as a bowel regimen. He will continue his medication at present [...] effects are noted. Last UDS and [employer] ACCOUNT MANAGER reviewed today. Patient is advised that best [...] has been made aware of this policy. 05/01/2025 Lumbosacral spondylosis with radiculopathy (ICD-10 - M47.27) 01/02/2025 Other cervical disc degeneration, unspecified cervical region (ICD-10 - M50.30) 02/26/2025 DDD (degenerative disc disease), cervical (ICD-10 - M50.30) 06/27/2024 Other spondylosis with radiculopathy, cervical region (ICD-10 - M47.22) 08/29/2024 Other spondylosis with radiculopathy, cervical region (ICD-10 - M47.22) 11/06/2024 DDD (degenerative disc disease), cervical (ICD-10 - M50.30) 11/06/2024 Cervical spondylosis with radiculopathy (ICD-10 - M47.22) 08/29/2024 Other spondylosis with radiculopathy, lumbosacral region (ICD-10 - M47.27) 05/01/2025 Inflammation of left sacroiliac joint (ICD-10 - M46.1) 06/27/2024 Other spondylosis with radiculopathy, lumbosacral region (ICD-10 - M47.27) 02/26/2025 Cervical spondylosis with radiculopathy (ICD-10 - M47.22) 01/02/2025 Other spondylosis with radiculopathy, cervical region (ICD-10 - M47.22) 01/02/2025 Other spondylosis with radiculopathy, lumbosacral region (ICD-10 - M47.27) 02/26/2025 Lumbosacral spondylosis with radiculopathy (ICD-10 - M47.27) 06/27/2024 Sacroiliitis, not elsewhere classified (ICD-10 - M46.1) 05/01/2025 Admission for long-term opiate analgesic use (ICD-10 - Z79.891) 11/06/2024 Lumbosacral spondylosis with radiculopathy (ICD-10 - M47.27) 08/29/2024 Sacroiliitis, not elsewhere classified (ICD-10 - M46.1) 11/06/2024 Inflammation of left sacroiliac joint (ICD-10 - M46.1) 06/27/2024 Postlaminectomy syndrome, not elsewhere classified (ICD-10 - M96.1) 08/29/2024 Postlaminectomy syndrome, not elsewhere classified (ICD-10 - M96.1) 01/02/2025 Sacroiliitis, not elsewhere classified (ICD-10 - M46.1) 02/26/2025 Inflammation of left sacroiliac joint (ICD-10 - M46.1) 05/01/2025 DDD (degenerative disc disease), cervical (ICD-10 - M50.30) 02/26/2025 Lumbar post-laminectomy syndrome (ICD-10 - M96.1) 01/02/2025 Postlaminectomy syndrome, not elsewhere classified (ICD-10 - M96.1) 08/29/2024 Unspecified abnormalities of gait and mobility (ICD-10 - R26.9) 06/27/2024 Unspecified abnormalities of gait and mobility (ICD-10 - R26.9) 11/06/2024 Lumbar post-laminectomy syndrome (ICD-10 - M96.1) 05/01/2025 Lumbar post-laminectomy syndrome (ICD-10 - M96.1) 05/01/2025 Abnormality of gait and mobility (ICD-10 - R26.9) 11/06/2024 Abnormality of gait and mobility (ICD-10 - R26.9) 06/27/2024 custodial (current) use of opiate analgesic (ICD-10 - Z79.891) 08/29/2024 Tobacco use (ICD-10 - Z72.0) 01/02/2025 Unspecified abnormalities of gait and mobility (ICD-10 - R26.9) 02/26/2025 Abnormality of gait and mobility (ICD-10 - R26.9) 02/26/2025 Admission for long-term opiate analgesic use (ICD-10 - Z79.891) 01/02/2025 Tobacco use (ICD-10 - Z72.0) 08/29/2024 custodial (current) use of opiate analgesic (ICD-10 - [...] abide by our urine testing policy. 01/02/2025 terminal system operator (current) use of opiate analgesic (ICD-10 - [...] has been made aware of this policy. 11/06/2024 Other Keiry Klein NCMA, am scribing for Dr. Elvin Beck. I, Dr. Elvin Beck, personally performed the services described in this documentation, as scribed by TIERRA Ramon, and it is both accurate and complete. 02/26/2025 Klarissa Mckoy am scribing for Dr. Elvin Beck. I, Dr. Elvin Beck, personally performed the services described in this documentation, as scribed by Klarissa Fontenot, and it is both accurate and complete. Plan Of Treatment Next Appt Details Provider Name:Joanneacro echols, 07/03/2025 10:00:00 AM, [address] [place], [address], Insurance Providers Payer Name Payer Address Payer Phone Subscriber Number Group Number Insured Name Patient Relationship to Insured Coverage Start Date Coverage End Date [place] [address] [address] [place] [phone] [id number] Rudy De La Vega Self - patient is the insured 2 Medical (General) History Medical History History ICD Code Arthritis, Bronchitis, Constipation, Depressed, Hypertension, Migraine, Swelling, Surgical History Surgery Date(Month/Year) right shoulder surgery- SLAP tear 2023 Finger surgery Cyst Removal
[2025-05-18 16:28] VITALS: BP 133/94; PULSE 88; RESP 17; TEMP 36.8; O2SAT 96; BMI 17.7
[2025-05-18 17:02] LABS: Hematocrit 49.6 % (37-53); Hemoglobin 16.90 g/dL (11.27-16.99); Mean Corpuscular HGB Conc 34.1 g/dL (30-55); Mean Corpuscular Hemoglobin 32.0 pg (27-33); Mean Corpuscular Volume 93.9 fl (82-101); Nucleated Red Blood Cells % 0 %; Platelet Count 248 10^3/cmm (157-399); Red Blood Count 5.28 10^6/uL (3.85-5.65); White Blood Count 8.46 10^3/uL (3.29-11.43)
[2025-05-18 17:17] LABS: Alanine Aminotransferase 14 U/L (0-41); Albumin Level 4.3 g/dL (3.5-5.2); Alkaline Phosphatase 90 U/L (40-130); Anion Gap 16.8 (5-19); Aspartate Amino Transferase 17 U/L (0-40); Blood Urea Nitrogen 17 mg/dL (8-23); Calcium 8.8 mg/dL (8.5-10.5); Carbon Dioxide 23 mmol/L (22-29); Chloride 103 mmol/L (98-107); Globulin 2.9 g/dL (1.3-4.6); Glucose 100 mg/dL (65-115); Lipase 21 U/L (13-60); Osmolality Calculated 290 mOsm/kg (285-295); Potassium 3.8 mmol/L (3.5-5.1); Sodium 139 mmol/L (136-145); Total Protein 7.2 g/dL (6.6-8.7)
== END 2025-05-18 19:02 | disposition left against medical advice (07) ==
PROVIDERS: Emergency Provider Emergency Medicine
DX: Z01.89 Encounter for other specified special examinations (principal); Z53.21 Procedure and treatment not carried out due to patient leaving prior to being seen by health care provider
CPT/HCPCS: 36415; 80053; 83690; 85025